=== PATIENT | female | born 1960 | race African-American/Black ===

== ENCOUNTER → 2016-11-28 | Outpatient (CLI) | payer MEDICARE, MEDICAID ==
--- NOTE | 2016-11-28 17:09 | WOMENS IMAGING REPORT ---
EXAM DESCRIPTION: BILAT SCREENING MAMMO W/CAD COMPLETED DATE/TIME: 11/28/2016 10:17 am REASON FOR STUDY: BILAT SCREENING MAMMO (Z12.31 Z12.31 ENCNTR SCREEN MAMMOGRAM FOR MALIGNANT NEOPLA SM OF SADI COMPARISON: 2013, 2014 TECHNIQUE: Standard craniocaudal and mediolateral oblique views of each breast recorded using digita l acquisition. LIMITATIONS: None. FINDINGS: Findings present which are benign by mammographic criteria. No suspicious masses, calcifi cations or architectural distortion. Read with the assistance of CAD. .[facility] - R2 Cenova Version 1.3 .[facility] - R2 Cenova Version 1.3 .[facility] - R2 Cenova Version 2.4 .[facility] [place] - R2 Cenova Version 2.4 .[facility] - R2 Cup Trimming Machine Operator Version 9.2 Benign mammographic findings may include one or more of the following: Smooth masses, popcorn/rim/co arse calcifications, asymmetries, post-procedure changes, and lesions with long-standing stability. BREAST DENSITY: c. The breasts are heterogeneously dense, which may obscure small masses. BIRAD: 2 BENIGN FINDING(S) RECOMMENDATION: ROUTINE SCREENING Please consider bilateral screening tomosynthesis in November 2017, given heterogeneously dense tissue COMMENT: PATIENT NOTIFIED BY LETTER. The [employer] recommends an annual screening mammogram for women aged 40 years or over. Each patient will receive a reminder prior to the anniversary date of her mammogram. The [employer] (A[employer]) has developed recommendations for screening MRI of the breast s in certain patient populations, to be used in conjunction with mammography. Breast MRI surveillanc e may be appropriate for women with more than 20% lifetime risk of developing breast cancer as deter mined by genetic testing, significant family history of the disease, or history of mantle radiation f or Hodgkins Disease. ACR Practice Guidelines 2008. TECHNICAL DOCUMENTATION: FINDING NUMBER: (1) ASSESSMENT: (1) JOB ID: [id number] [employer]- All Rights Reserved
== END ==
LOC: WI 10:00
PROVIDERS: ATTEND Family Medicine
DX: Z12.31 Encounter for screening mammogram for malignant neoplasm of breast (principal)
CPT/HCPCS: 77067; G0202

== ENCOUNTER 2016-12-14 20:01 | Emergency (ER) | payer MEDICARE, MEDICAID ==
[2016-12-14] MEDS ORDERED: QUETIAPINE FUMARATE 100 MG TABLET PO ONE (20:23)
[2016-12-14] MEDS ORDERED: DIPHENHYDRAMINE HCL 25 MG CAPSULE PO ONE (20:23)
--- NOTE | 2016-12-14 21:02 | ER Document Report ---
ED General - General Stated Complaint: ANXIETY Notes: This is a 56-year-old female well known to this emergency permit for frequent visits due to her anxiety issues. Patient states that she ran out of her Seroquel yesterday so did not have today's dose. She woke up this morning feeling very anxious and has been trying to take care of the symptoms at home with her when necessary Ativan. She states she's had 4 tablets of Ativan throughout the course of the day per the instructions on her bottle. She states she was still feeling extremely anxious. Her anxiety is manifested by biting things, crying and self-induced vomiting. TRAVEL OUTSIDE OF THE [place] IN LAST 30 DAYS: No - Related Data Allergies/Adverse Reactions: Soap [From Betadine] Allergy (Intermediate, Verified 08/02/16 08:29) RASH povidone-iodine [From Betadine] Allergy (Verified 08/02/16 08:29) RASH Past Medical History - Social History Smoking Status: Unknown if Ever Smoked Frequency of alcohol use: None Drug Abuse: None Family History: Reviewed & Not Pertinent - Past Medical History Cardiac Medical History: Reports: Hx Hypertension Denies: Hx Coronary Artery Disease, Hx Heart Attack Pulmonary Medical History: Denies: Hx Asthma, Hx Bronchitis, Hx COPD, Hx Pneumonia Neurological Medical History: Denies: Hx Cerebrovascular Accident, Hx Seizures Musculoskeltal Medical History: Denies Hx Arthritis Psychiatric Medical History: Reports: Hx Anxiety, Hx Bipolar Disorder, Hx Depression Past Surgical History: Reports: Hx Orthopedic Surgery - R arm, R ankle, Hx Tonsillectomy, Hx Tubal Ligation. Denies: Hx Hysterectomy - Immunizations Hx Diphtheria, Pertussis, Tetanus Vaccination: Yes Review of Systems - Review of Systems Constitutional: denies: Fever EENT: denies: Throat pain Cardiovascular: denies: Syncope, Dizziness Respiratory: denies: Short of breath Gastrointestinal: denies: Abdominal pain Genitourinary: denies: Burning Musculoskeletal: denies: Leg swelling Skin: denies: Rash Neurological/Psychological: denies: Numbness, Tingling Physical Exam - Vital signs Vitals: Pulse Resp BP Pulse Ox 98 22 H 145/110 H 98 12/14/16 20:14 12/14/16 20:14 12/14/16 20:14 12/14/16 20:14 - HEENT Head: Normocephalic, Atraumatic Pupils: PERRL Mucous membranes: Normal Pharynx: Normal Neck: Normal - Respiratory Respiratory status: No respiratory distress Breath sounds: Normal - Cardiovascular Rhythm: Regular - Abdominal Inspection: Normal Tenderness: Nontender - Back Back: Normal - Extremities General upper extremity: Normal inspection General lower extremity: Normal inspection - Neurological Neuro grossly intact: Yes Orientation: AAOx4 - Psychological Associated symptoms: Anxious - Skin Skin Temperature: Warm Skin Moisture: Dry Skin Color: Normal Course - Re-evaluation Re-evalutation: 12/14/16 21:19 The patient is now escalating, lying on the floor, crying and insisting that she will kill herself if we'll give her injections "knock her out". I reviewed her prior mental health notes which encourages to avoid injections with her. She has a long history of manipulating the ER providers to give her injections and various sedatives. She is threatening that she will go home and take all of her pills if I don't comply with her demands. She has had a medical screening exam. I do not feel that she has true intent to harm herself but rather she is exhibiting drug-seeking behavior manipulation. She will be discharged home. - Vital Signs Vital signs: Temp Pulse Resp BP Pulse Ox 98.0 F 81 20 139/90 H 98 12/14/16 21:50 12/14/16 21:50 12/14/16 21:50 12/14/16 21:50 12/14/16 21:50 Discharge - Discharge Clinical Impression: Anxiety Condition: Stable Disposition: HOME, SELF-CARE Instructions: Anxiety ([facility], [facility]) Additional Instructions: take your normal prescription medication as directed. Follow up at [facility] tomorrow if you need further assistance.
[2016-12-14 22:24] VITALS: BP 139/90
== END 2016-12-14 21:50 | disposition home or self-care (01) ==
LOC: ER 20:01
DX: F41.9 Anxiety disorder, unspecified (principal); F31.9 Bipolar disorder, unspecified; Z79.899 Other long term (current) drug therapy; Z91.14 Patient's other noncompliance with medication regimen; I10 Essential (primary) hypertension; Z88.3 Allergy status to other anti-infective agents; Z76.5 Malingerer [conscious simulation]
CPT/HCPCS: 99283

== ENCOUNTER 2016-12-15 06:43 | Emergency (ER) | payer MEDICARE, MEDICAID ==
--- NOTE | 2016-12-15 06:58 | ER Document Report ---
ED Psych Disorder / Suicide - General Mode of Arrival: Medic Information source: Patient, [facility] Records TRAVEL OUTSIDE OF THE [place] IN LAST 30 DAYS: No - HPI Patient complains to provider of: Other - Anxiety - General Chief Complaint: Anxiety Stated Complaint: ANXIETY Notes: Patient is a 56-year-old female presenting to the emergency department via EMS chief complaint anxiety. Patient was just seen here last night for the same complaint, and she was discharged and told to go to [facility] so that she could get a refill on her Seroquel. Patient was unable to give any information at this point in time because she was screaming and would not stop when we were in the room. Patient is able to turn this behavior on and off, and subsequently told the nurse exactly what was said during the examination, although she was screaming the entire time we were in the room. (DAVID QUINTANA) This 56-year-old female patient comes emergency room screaming requesting injection medications. She was here last night at 9 PM and eventually discharged to follow-up with [facility] today. Last night she did her usual routine of low lying on the floor and screaming. She threatened to go home and overdose on her medications if she did not get what she wanted here. She comes here frequently like this, escalates to the point of laying on the floor screaming and trying to make herself vomit. She will not stop screaming long enough for me to speak to her at all this morning. We have been asked by the psychiatry department in the past to not ever provide injections medication to her as this only feeds her problem. She frequently will come in by EMS bringing her home medications, but refusing to take them and demanding injections of the same medications. (CHESTER HAJI) - Related Data Allergies/Adverse Reactions: Soap [From Betadine] Allergy (Intermediate, Verified 08/02/16 08:29) RASH povidone-iodine [From Betadine] Allergy (Verified 08/02/16 08:29) RASH Past Medical History - General Information source: [facility] Records - Social History Smoking Status: Current Every Day Smoker Cigarette use (# per day): Yes Frequency of alcohol use: Occasional Family History: Reviewed & Not Pertinent - Past Medical History Cardiac Medical History: Reports: Hx Hypertension Denies: Hx Coronary Artery Disease, Hx Heart Attack Pulmonary Medical History: Denies: Hx Asthma, Hx Bronchitis, Hx COPD, Hx Pneumonia Neurological Medical History: Denies: Hx Cerebrovascular Accident, Hx Seizures Renal/ Medical History: Denies: Hx Peritoneal Dialysis Musculoskeltal Medical History: Denies Hx Arthritis Psychiatric Medical History: Reports: Hx Anxiety, Hx Bipolar Disorder, Hx Depression Past Surgical History: Reports: Hx Orthopedic Surgery - R arm, R ankle, Hx Tonsillectomy, Hx Tubal Ligation. Denies: Hx Hysterectomy - Immunizations Hx Diphtheria, Pertussis, Tetanus Vaccination: Yes Review of Systems - Review of Systems -: Yes ROS unobtainable due to patient's medical condition - Patient unable to provide information because she was screaming upset. Physical Exam - General General appearance: Alert - HEENT Head: Normocephalic, Atraumatic Eyes: Normal Pupils: PERRL - Respiratory Respiratory status: No respiratory distress - Cardiovascular Rhythm: Regular - Abdominal Inspection: Normal - Back Back: Normal - Extremities General upper extremity: Normal inspection General lower extremity: Normal inspection - Neurological Neuro grossly intact: Yes - Psychological Associated symptoms: Anxious, Labile - Skin Skin Color: Normal Course - Re-evaluation Re-evalutation: 12/15/16 07:33 The patient's blood pressure is 163/112 when it was checked manually after she laid still and stopped screaming for a while. It is unlikely she has taken her blood pressure medication recently. The most recent records we have shows she takes amlodipine 10 mg daily, she will be given a dose now. (CHESTER HAJI) - Vital Signs Vital signs: Temp Pulse Resp BP Pulse Ox 98.1 F 106 H 30 H 172/127 H 99 12/15/16 06:59 12/15/16 06:59 12/15/16 06:59 12/15/16 06:59 12/15/16 06:59 Discharge - Discharge Clinical Impression: Anxiety, History of medication noncompliance Hypertension Qualifiers: Hypertension type: essential hypertension Qualified Code(s): I10 - Essential ( primary) hypertension Condition: Stable Disposition: HOME, SELF-CARE Additional Instructions: TAKE YOUR REGULARLY PRESCRIBED MEDICATIONS. FOLLOW UP WITH [facility] TODAY IF YOU ARE RUNNING OUT OF MEDICATION, OR IF YOUR MEDICATIONS ARE NOT HELPING. RETURN TO THE EMERGENCY ROOM IF ANY NEW OR WORSENING SYMPTOMS. Referrals: [facility] [Outside] - 12/15/16 Scribe Attestation: 12/15/16 07:05 I personally performed the services described in the documentation, reviewed and edited the documentation which was dictated to the scribe in my presence, and it accurately records my words and actions. (CHESTER HAJI) Scribe Documentation - Scribe Written by Bhavya:: David Quintana 12/15/2016 0707 acting as scribe for :: Lucho
[2016-12-15] MEDS ORDERED: AMLODIPINE BESYLATE 10 MG TABLET PO ONE (07:33)
[2016-12-15 07:59] VITALS: BP 162/110
== END 2016-12-15 07:57 | disposition home or self-care (01) ==
LOC: ER 06:43
DX: F41.9 Anxiety disorder, unspecified (principal); I10 Essential (primary) hypertension; F17.210 Nicotine dependence, cigarettes, uncomplicated; Z91.14 Patient's other noncompliance with medication regimen
CPT/HCPCS: 99283; A9270

== ENCOUNTER 2016-12-15 13:26 | Emergency (ER) | payer MEDICARE, MEDICAID ==
--- NOTE | 2016-12-15 14:17 | ER Document Report ---
ED Psych Disorder / Suicide - General Mode of Arrival: Ambulatory - Came on IVC papers with [facility]. Information source: Patient, [facility] Records, Outside Facility Records TRAVEL OUTSIDE OF THE [place] IN LAST 30 DAYS: No - HPI Patient complains to provider of: Self injury Onset: Just prior to arrival Suicide Risk Factors: Bipolar <DAVID QUINTANA - Last Filed: 12/15/16 14:10> <CHESTER HAJI - Last Filed: 12/15/16 15:25> - General Chief Complaint: Nausea Stated Complaint: NAUSEA Notes: Patient is a 56-year-old female presenting to the emergency department for the second time today. This time patient comes in on IVC papers from [facility]. Per the IVC papers, [facility] states, " The respondent is currently expressing that she wants to . Respondent is attempting to cut her wrists with objects. Respondent was not tending to personal hygiene, sleeping, or eating. Respondent is wandering around and yelling incoherently. Respondent is requesting to be taken to the hospital." Nothing has changed from this description. Patient was acting like this when she was in the hospital this morning as well. Upon examination, patient was asleep on the mattress on the ground. (ADVID QUINTANA) - Related Data Allergies/Adverse Reactions: Soap [From Betadine] Allergy (Intermediate, Verified 08/02/16 08:29) RASH povidone-iodine [From Betadine] Allergy (Verified 08/02/16 08:29) RASH Past Medical History - General Information source: Patient, [facility] Records, Outside Facility Records - Social History Smoking Status: Current Every Day Smoker Frequency of alcohol use: Occasional Family History: Reviewed & Not Pertinent - Past Medical History Cardiac Medical History: Reports: Hx Hypertension Psychiatric Medical History: Reports: Hx Anxiety, Hx Bipolar Disorder, Hx Depression Past Surgical History: Reports: Hx Orthopedic Surgery - R arm, R ankle, Hx Tonsillectomy, Hx Tubal Ligation - Immunizations Hx Diphtheria, Pertussis, Tetanus Vaccination: Yes <DAVID QUINTANA - Last Filed: 12/15/16 14:10> - Social History Cigarette use (# per day): Yes Chew tobacco use (# tins/day): No Smoking Education Provided: No Occupation: unemployed <CHESTER HAJI - Last Filed: 12/15/16 15:25> Review of Systems - Review of Systems -: Yes ROS unobtainable due to patient's medical condition - Patient was sleeping on examination <MILES QUINTANAICA - Last Filed: 12/15/16 14:10> Physical Exam - General General appearance: Other - Patient was sleeping on the mattress on the floor. - HEENT Head: Normocephalic, Atraumatic - Respiratory Respiratory status: No respiratory distress - Cardiovascular Rhythm: Regular - Abdominal Inspection: Normal - Back Back: Normal - Extremities General upper extremity: Normal inspection General lower extremity: Normal inspection - Neurological Neuro grossly intact: Yes - Psychological Associated symptoms: Other - Patient asleep - Skin Skin Temperature: Warm Skin Moisture: Dry Skin Color: Normal <LILIANDAVID - Last Filed: 12/15/16 14:10> Course <LILIANDAVID - Last Filed: 12/15/16 14:10> <CHESTER HAJI - Last Filed: 12/15/16 15:25> - Re-evaluation Re-evalutation: 12/15/16 15:23 Despite what the petitioner put on the IVC paperwork, I do not believe the patient is trying to hurt herself. I have seen this patient many times for all the same complaints. The behavior they will be supported is what is always present when this patient comes to the emergency room. The IVC paperwork will be rescinded at the request of Dr. Trinidad. (CHESTER HAJI) - Vital Signs Vital signs: Temp Pulse Resp BP Pulse Ox 98.0 F 93 14 146/87 H 98 12/15/16 14:17 12/15/16 14:17 12/15/16 14:17 12/15/16 14:17 12/15/16 14:17 (CHESTER HAJI) Discharge <DAVID QUINTANA - Last Filed: 12/15/16 14:10> <CHESTER HAJI - Last Filed: 12/15/16 15:25> - Discharge Clinical Impression: Anxiety, Manipulative behavior, Bipolar 1 disorder, History of medication noncompliance Condition: Stable Disposition: HOME, SELF-CARE Additional Instructions: Take your regular medications as prescribed. Follow up with [facility] for any medications or may need. Do not tell them you are thinking about hurting herself when you go over to [facility] to get help. Scribe Attestation: 12/15/16 15:24 I personally performed the services described in the documentation, reviewed and edited the documentation which was dictated to the scribe in my presence, and it accurately records my words and actions. (CHESTER HAJI) Scribe Documentation - Scribe Written by Bhavya:: David Quintana 12/15/2016 1410 acting as scribe for :: Lucho <DAVID QUINTANA - Last Filed: 12/15/16 14:10>
[2016-12-15 16:29] VITALS: BP 143/92
== END 2016-12-15 16:20 | disposition home or self-care (01) ==
LOC: ER 13:26
DX: F31.9 Bipolar disorder, unspecified (principal); F41.9 Anxiety disorder, unspecified; I10 Essential (primary) hypertension; R11.0 Nausea; R45.851 Suicidal ideations; F17.200 Nicotine dependence, unspecified, uncomplicated; Z91.14 Patient's other noncompliance with medication regimen; Z98.51 Tubal ligation status
CPT/HCPCS: 99283

== ENCOUNTER 2017-01-04 20:27 | Emergency (ER) | payer MEDICARE, MEDICAID ==
--- NOTE | 2017-01-04 21:01 | ER Document Report ---
ED Medical Screen (RME) - General Stated Complaint: LEFT SHOULDER/ARM PAIN Notes: patient is a 57 year old female who had her porch roof collapse on her left arm and left leg able to ambulate, bear weight difficulty with ROM of the left shoulder I have greeted and performed a rapid initial assessment of this patient. A comprehensive ED assessment and evaluation of the patient, analysis of test results and completion of the medical decision making process will be conducted by additional ED providers. TRAVEL OUTSIDE OF THE [place] IN LAST 30 DAYS: No - Related Data Allergies/Adverse Reactions: Soap [From Betadine] Allergy (Intermediate, Verified 08/02/16 08:29) RASH povidone-iodine [From Betadine] Allergy (Verified 08/02/16 08:29) RASH Past Medical History - Past Medical History Cardiac Medical History: Reports: Hx Hypertension Psychiatric Medical History: Reports: Hx Anxiety, Hx Bipolar Disorder, Hx Depression Past Surgical History: Reports: Hx Orthopedic Surgery - R arm, R ankle, Hx Tonsillectomy, Hx Tubal Ligation - Immunizations Hx Diphtheria, Pertussis, Tetanus Vaccination: Yes
[2017-01-04] MEDS ORDERED: ACETAMINOPHEN 325 MG TABLET PO ONE (21:02)
--- NOTE | 2017-01-05 01:06 | ER Document Report ---
ED Extremity Problem, Upper - General Chief Complaint: Shoulder Injury Stated Complaint: LEFT SHOULDER/ARM PAIN Time seen by provider: 01:04 Mode of Arrival: Ambulatory Information source: Patient TRAVEL OUTSIDE OF THE [place] IN LAST 30 DAYS: No - HPI Patient complains to provider of: Injury, Pain, Left, Shoulder Onset: Just prior to arrival Recent injury: Yes Where: Home, Outdoors Quality of pain: Achy Severity of pain: Mild Pain Level: 1 Context: Blow Associated symptoms: None Exacerbated by: Movement Relieved by: Nothing Similar symptoms previously: No Recently seen / treated by doctor: No Notes: Patient is a 57-year-old female who presents to the emergency room complaining of injury to her left shoulder that occurred just prior to arrival, patient was with her friend standing on a porch one part of the porch collapsed and fell on her shoulder, she denies a head injury or loss of consciousness, denies injury or pain elsewhere - Related Data Allergies/Adverse Reactions: Soap [From Betadine] Allergy (Intermediate, Verified 01/05/17 03:14) RASH povidone-iodine [From Betadine] Allergy (Verified 01/05/17 03:14) RASH Past Medical History - General Information source: Patient - Social History Smoking Status: Current Every Day Smoker Chew tobacco use (# tins/day): No Frequency of alcohol use: None Drug Abuse: None Family History: Reviewed & Not Pertinent Patient has suicidal ideation: No Patient has homicidal ideation: No - Past Medical History Cardiac Medical History: Reports: Hx Hypertension Renal/ Medical History: Denies: Hx Peritoneal Dialysis Psychiatric Medical History: Reports: Hx Anxiety, Hx Bipolar Disorder, Hx Depression Past Surgical History: Reports: Hx Orthopedic Surgery - R arm, R ankle, Hx Tonsillectomy, Hx Tubal Ligation - Immunizations Hx Diphtheria, Pertussis, Tetanus Vaccination: Yes Review of Systems - Review of Systems Constitutional: No symptoms reported EENT: No symptoms reported Cardiovascular: No symptoms reported Respiratory: No symptoms reported Gastrointestinal: No symptoms reported Genitourinary: No symptoms reported Female Genitourinary: No symptoms reported Musculoskeletal: See HPI Skin: No symptoms reported Hematologic/Lymphatic: No symptoms reported Neurological/Psychological: No symptoms reported -: Yes All other systems reviewed and negative Physical Exam - Vital signs Vitals: Temp Pulse Resp BP Pulse Ox 97.3 F 82 16 154/100 H 100 01/04/17 21:02 02/16/17 21:02 01/04/17 21:02 01/04/17 21:02 01/04/17 21:02 Interpretation: Normal - General General appearance: Appears well, Alert - HEENT Head: Normocephalic, Atraumatic Eyes: Normal Pupils: PERRL - Respiratory Respiratory status: No respiratory distress Chest status: Nontender Breath sounds: Normal Chest palpation: Normal - Cardiovascular Rhythm: Regular Heart sounds: Normal auscultation Murmur: No - Abdominal Inspection: Normal Distension: No distension Bowel sounds: Normal Tenderness: Nontender Organomegaly: No organomegaly - Back Back: Normal, Nontender - Extremities General upper extremity: Normal inspection, Normal color, Normal ROM, Normal temperature General lower extremity: Normal inspection, Nontender, Normal color, Normal ROM , Normal temperature, Normal weight bearing. No: Alexandrea's sign Shoulder: Tender - Mild tenderness to palpate over the left before meals joint, distal sensation and motor is intact 2+ radial pulses and brisk capillary refill - Neurological Neuro grossly intact: Yes Cognition: Normal Orientation: AAOx4 Liz Coma Scale Eye Opening: Spontaneous Liz Coma Scale Verbal: Oriented Craig Coma Scale Motor: Obeys Commands Liz Coma Scale Total: 15 Speech: Normal Motor strength normal: LUE, RUE, LLE, RLE Sensory: Normal - Psychological Associated symptoms: Normal affect, Normal mood - Skin Skin Temperature: Warm Skin Moisture: Dry Skin Color: Normal Course - Re-evaluation Re-evalutation: 01/05/17 03:45 As I entered the room patient was actually sleeping, laying on her left shoulder , which is the shoulder that she reportedly injured, I see no evidence of any injury, there is mild tenderness to palpate anteriorly over the before meals joint, imaging shows no evidence of injury, he was provided with a sling as well as pain medication and information for follow-up, advised to return if symptoms worsen, patient acknowledges understanding and agreement with this plan - Vital Signs Vital signs: Temp Pulse Resp BP Pulse Ox 97.6 F 80 16 152/98 H 100 01/05/17 01:30 01/05/17 01:30 01/05/17 01:30 01/05/17 01:30 01/05/17 01:30 - Diagnostic Test Radiology reviewed: Image reviewed, Reports reviewed Procedures - Immobilization Left Shoulder Time completed: 03:46 Pre-Proc Neuro Vasc Exam: Normal Immobilizer type: Sling Performed by: [facility] Post-Proc Neuro Vasc Exam: Normal Alignment checked and good: Yes Discharge - Discharge Clinical Impression: Injury of left shoulder Qualifiers: Encounter type: initial encounter Qualified Code(s): S49.92XA - Unspecified injury of left shoulder and upper arm, initial encounter Condition: Stable Disposition: HOME, SELF-CARE Instructions: Oral Narcotic Medication ([facility]), Sling as Treatment ([facility]) Additional Instructions: Follow up with your primary care provider and an orthopedic surgeon in one to 2 days. Return to the emergency room immediately if symptoms worsen or any additional concerns. Ice and elevate the affected extremity. Prescriptions: Hydrocodone/Acetaminophen [Hydrocodon-Acetaminophen 5-325] 1 each PO Q6 #10 tablet Forms: Elevated Blood Pressure Referrals: RAJI DHILLON MD [ACTIVE STAFF] - Follow up as needed
[2017-01-05 03:19] VITALS: BP 152/98
== END 2017-01-05 01:32 | disposition home or self-care (01) ==
LOC: ER 20:27
DX: S49.92XA Unspecified injury of left shoulder and upper arm, initial encounter (principal); W20.8XXA Other cause of strike by thrown, projected or falling object, initial encounter; Y92.008 Other place in unspecified non-institutional (private) residence as the place of occurrence of the external cause; M25.512 Pain in left shoulder; I10 Essential (primary) hypertension; F17.200 Nicotine dependence, unspecified, uncomplicated; Z88.3 Allergy status to other anti-infective agents
CPT/HCPCS: 99283; 73030; A9270

== ENCOUNTER → 2017-02-06 | Outpatient (CLI) | payer MEDICARE, MEDICAID ==
[2017-02-06 10:09] LABS: HEMATOCRIT 39.5 % (36.0-47.0); HEMOGLOBIN 13.7 g/dL (12.0-15.5); HGB HCT DIFFERENCE 1.6; MEAN CORPUSCULAR HEMOGLOBIN 31.8 pg (27.0-33.4); MEAN CORPUSCULAR HGB CONC 34.7 g/dL (32.0-36.0); MEAN CORPUSCULAR VOLUME 92 fl (80-97); RED BLOOD COUNT 4.32 10^6/uL (3.72-5.28); RED CELL DISTRIBUTION WIDTH 14.6 % (11.5-14.0); WHITE BLOOD COUNT 5.8 10^3/uL (4.0-10.5)
[2017-02-06 10:29] LABS: ALANINE AMINOTRANSFERASE 51 U/L (9-52); ALBUMIN 4.3 g/dL (3.5-5.0); ALKALINE PHOSPHATASE 94 U/L (38-126); ANION GAP 11 (5-19); ASPARTATE AMINO TRANSFERASE 49 U/L (14-36); BILIRUBIN,DIRECT 0.2 mg/dL (0.0-0.4); BILIRUBIN,TOTAL 0.5 mg/dL (0.2-1.3); BLOOD UREA NITROGEN 14 mg/dL (7-20); CALCIUM 10.1 mg/dL (8.4-10.2); CARBON DIOXIDE 21 mmol/L (22-30); CHLORIDE 110 mmol/L (98-107); CHOLESTEROL 229.51 mg/dL (0-200); CREATININE RESULT 0.61 mg/dL (0.52-1.25); Direct HDL 107 mg/dL (>40); GLUCOSE 90 mg/dL (75-110); POTASSIUM 4.2 mmol/L (3.6-5.0); SODIUM 142.3 mmol/L (137-145); TOTAL PROTEIN 7.6 g/dL (6.3-8.2); TRIGLYCERIDES 99 mg/dL (<150)
[2017-02-06 10:40] LABS: DIRECT LDL 81 mg/dL (<100)
== END ==
LOC: RAD 09:07
PROVIDERS: ATTEND Nurse Practitioner Family
DX: M54.2 Cervicalgia (principal); I10 Essential (primary) hypertension
CPT/HCPCS: 36415; 72050; 80053; 80061; 85027

== ENCOUNTER 2017-02-18 04:40 | Emergency (ER) | payer MEDICARE, MEDICAID ==
[2017-02-18 05:06] VITALS: BP 144/98
== END 2017-02-18 07:51 | disposition left against medical advice (07) ==
LOC: ER 04:40
DX: Z53.9 Procedure and treatment not carried out, unspecified reason (principal); F41.9 Anxiety disorder, unspecified

== ENCOUNTER 2017-02-23 02:45 | Emergency (ER) | payer MEDICARE, MEDICAID ==
--- NOTE | 2017-02-23 03:49 | ER Document Report ---
ED General - General Chief Complaint: Psych Problem Stated Complaint: IVC/WITH PAPER Notes: Patient is a 57-year-old female who presents on IVC. Report by EMS with concerns of suicidal ideation. The patient is a very poor historian although very well known to the emergency department. I received report states the patient told her neighbor that she would find her and apparently had attempted to stab herself with a screwdriver. Patient denies these claims stating that she only told her neighbor that if her anxiety and panic attacks knocked him out of control she would likely windup in her house. At this time she denies acute suicidal or homicidal ideation but states that she does have severe anxiety and worries that this could trigger her to herself in the future. Denies any acute medical complaints. States she's been taking medications as directed. TRAVEL OUTSIDE OF THE [place] IN LAST 30 DAYS: No - Related Data Allergies/Adverse Reactions: Soap [From Betadine] Allergy (Intermediate, Verified 01/05/17 03:14) RASH povidone-iodine [From Betadine] Allergy (Verified 01/05/17 03:14) RASH Past Medical History - General Information source: Patient - Social History Smoking Status: Never Smoker Frequency of alcohol use: None Drug Abuse: None Lives with: Alone Family History: Reviewed & Not Pertinent - Past Medical History Cardiac Medical History: Reports: Hx Hypertension Renal/ Medical History: Denies: Hx Peritoneal Dialysis Psychiatric Medical History: Reports: Hx Anxiety, Hx Bipolar Disorder, Hx Depression Past Surgical History: Reports: Hx Orthopedic Surgery - R arm, R ankle, Hx Tonsillectomy, Hx Tubal Ligation - Immunizations Hx Diphtheria, Pertussis, Tetanus Vaccination: Yes Review of Systems - Review of Systems Notes: Constitutional: Negative for fever. HENT: Negative for sore throat. Eyes: Negative for visual changes. Cardiovascular: Negative for chest pain. Respiratory: Negative for shortness of breath. Gastrointestinal: Negative for abdominal pain, vomiting or diarrhea. Genitourinary: Negative for dysuria. Musculoskeletal: Negative for back pain. Skin: Negative for rash. Neurological: Negative for headaches, weakness or numbness. 10 point ROS negative except as marked above and in HPI. Physical Exam - Vital signs Interpretation: Normal Notes: PHYSICAL EXAMINATION: GENERAL: Well-appearing, well-nourished and in no acute distress. HEAD: Atraumatic, normocephalic. EYES: Pupils equal round and reactive to light, extraocular movements intact, sclera anicteric, conjunctiva are normal. ENT: nares patent, oropharynx clear without exudates. Moist mucous membranes. NECK: Normal range of motion, supple without lymphadenopathy LUNGS: Breath sounds clear to auscultation bilaterally and equal. No wheezes rales or rhonchi. HEART: Regular rate and rhythm without murmurs ABDOMEN: Soft, nontender, normoactive bowel sounds. No guarding, no rebound. No masses appreciated. EXTREMITIES: Normal range of motion, no pitting or edema. No cyanosis. NEUROLOGICAL: No focal neurological deficits. Moves all extremities spontaneously and on command. PSYCH: Somewhat disheveled. No acute distress SKIN: Warm, Dry, normal turgor, no rashes or lesions noted. Course - Re-evaluation Re-evalutation: 02/23/17 03:48 Patient presents an IVC before. Description of the paperwork is somewhat concerning although patient denies complaints as following IVC paperwork. At this point given the clarity of information provided on the paperwork, will hold patient at this time and perform medical screening laboratories. She denies any acute medical complaints at this time. She is medically cleared for evaluation by psychiatry in the morning. - Laboratory Result Diagrams: 02/23/17 03:38 02/23/17 03:38 Discharge - Discharge Clinical Impression: Anxiety, Suicidal ideation Condition: Fair Disposition: PSYCH HOSP/UNIT
[2017-02-23 04:04] LABS: ABSOLUTE LYMPHOCYTES (AUTO) 2.2 10^3/uL (0.5-4.7); ABSOLUTE MONOCYTES (AUTO) 0.4 10^3/uL (0.1-1.4); ABSOLUTE NEUT (AUTO) 5.7 10^3/uL (1.7-8.2); BASOPHILS % (AUTO) 0.6 % (0-2); EOSINOPHILS % (AUTO) 0.3 % (0-6); HEMATOCRIT 38.1 % (36.0-47.0); HEMOGLOBIN 13.1 g/dL (12.0-15.5); HGB HCT DIFFERENCE 1.2; MEAN CORPUSCULAR HEMOGLOBIN 31.8 pg (27.0-33.4); MEAN CORPUSCULAR HGB CONC 34.5 g/dL (32.0-36.0); MEAN CORPUSCULAR VOLUME 92 fl (80-97); MONOCYTES % (AUTO) 5.2 % (3-13); RED BLOOD COUNT 4.12 10^6/uL (3.72-5.28); RED CELL DISTRIBUTION WIDTH 14.2 % (11.5-14.0); SEGMENTED NEUTROPHILS % (AUTO) 67.9 % (42-78); WHITE BLOOD COUNT 8.4 10^3/uL (4.0-10.5)
[2017-02-23 04:14] LABS: ALANINE AMINOTRANSFERASE 44 U/L (9-52); ALBUMIN 4.2 g/dL (3.5-5.0); ALCOHOL < 10 mg/dL (NONE DETECTED); ALKALINE PHOSPHATASE 96 U/L (38-126); ANION GAP 14 (5-19); ASPARTATE AMINO TRANSFERASE 33 U/L (14-36); BILIRUBIN,DIRECT 0.3 mg/dL (0.0-0.4); BILIRUBIN,TOTAL 0.5 mg/dL (0.2-1.3); BLOOD UREA NITROGEN 10 mg/dL (7-20); CALCIUM 9.8 mg/dL (8.4-10.2); CARBON DIOXIDE 24 mmol/L (22-30); CHLORIDE 107 mmol/L (98-107); CREATININE RESULT 0.53 mg/dL (0.52-1.25); GLUCOSE 114 mg/dL (75-110); POTASSIUM 3.3 mmol/L (3.6-5.0); SODIUM 145.1 mmol/L (137-145); TOTAL PROTEIN 7.4 g/dL (6.3-8.2)
[2017-02-23 06:41] LABS: APPEARANCE,URINE CLOUDY; BILIRUBIN,URINE NEGATIVE (NEGATIVE); GLUCOSE, URINE NEGATIVE (NEGATIVE); KETONES,URINE NEGATIVE (NEGATIVE); LEUKOCYTE ESTERASE,URINE LARGE (NEGATIVE); NITRITE,URINE NEGATIVE (NEGATIVE); PROTEIN,URINE NEGATIVE (NEGATIVE); UROBILINOGEN,URINE NEGATIVE mg/dL (<2.0)
[2017-02-23 06:55] LABS: URINE BARBITURATES SCREEN NEGATIVE; URINE METHADONE SCREEN NEGATIVE; URINE OPIATES LOW NEGATIVE; URINE PHENCYCLIDINE SCREEN NEGATIVE
--- NOTE | 2017-02-23 08:55 | ER Document Report ---
Doctor's Note Notes: 02/23/17 08:54 Patient was seen and evaluated no acute distress patient able ambulate from the main ER due to psychiatric ER. Patient was seen by mental health team recommends discharge home. I agree with this assessment and plan this time. Vital signs lab work reviewed. Patient stable to have her IVC paper rescinded follow-up with outpatient provider
--- NOTE | 2017-02-23 09:06 | PSYCHOLOGICAL NOTE ---
Psych Note - Psych Note Psych Note: Patient presented to [facility] ED on IVC. Report by EMS with concerns of suicidal ideation. The patient is a very poor historian although very well known to the emergency department. I received report states the patient told her neighbor that she would find her and apparently had attempted to stab herself with a screwdriver. Patient denies these claims stating that she only told her neighbor that if her anxiety and panic attacks knocked him out of control she would likely windup in her house. At this time she denies acute suicidal or homicidal ideation but states that she does have severe anxiety and worries that this could trigger her to herself in the future. Patient states her neighbor made a false report because she "has my keys and wants to get in my house and take my Ativan." She continued to state that the neighbor says the patient told her she wanted to kill herself, but she states that she only said "my anxiety is so bad one day I will be found ." The patient states this was not meant as killing herself, rather she stated that her anxiety is so high her body suffers. She then requested a prescription for Ativan when it was explained that the ED was unable to, the patient stated that it was "ok, I will just get my regular doctor to get me one." She continued to disclose that she has an appointment today with her primary because of female issues and then needs to go to get blood work done. Patient is alert and orientated to person, place, time and circumstance. Mood is euthymic with congruent affect. Patient denies suicidal and homicidal ideation, stating her neighbor miss understood her comment. Patient denies auditory and visual hallucinations; no delusions are noted. Thought process is organized and linear. Conversational speech is loud. Eye contact was well maintained. Attention and concentration is good. Insight, judgment, and impulse control are fair. 296.80 (F31.9) Unspecified Bipolar Disorder by history 300.00 (F41.9) Unspecified Anxiety Disorder by history 304.10 (F13.20) Sedative Use disorder; Ativan by history Recommendations: Patient is recommended for rescind of IVC and is considered psychiatrically cleared for discharge. Patient denies suicidal and homicidal ideation; stating that she suffers only from anxiety. Patient is admit that her neighbor miss understood a comment she made in regards to how severe her anxiety is. Patient is recommended to follow up with outpatient mental health provider. Dr. Trinidad was consulted on the care and management of this patient. Attending physician is in a agreement with recommendations and disposition.
[2017-02-23 09:07] VITALS: BP 142/96
--- NOTE | 2017-02-23 22:30 | EKG REPORT ---
SEVERITY:- BORDERLINE ECG - SINUS RHYTHM PROBABLE LEFT ATRIAL ABNORMALITY : Confirmed by: Leticia Underwood MD 23-Feb-2017 22:30:15
== END 2017-02-23 09:15 | disposition home or self-care (01) ==
LOC: ER 02:45
DX: R45.851 Suicidal ideations (principal); F41.0 Panic disorder [episodic paroxysmal anxiety]; F41.9 Anxiety disorder, unspecified; Z76.5 Malingerer [conscious simulation]; F13.20 Sedative, hypnotic or anxiolytic dependence, uncomplicated; F31.9 Bipolar disorder, unspecified; I10 Essential (primary) hypertension; Z98.51 Tubal ligation status
CPT/HCPCS: 36415; 80053; 80307; 81001; 85025; 93005; 93010; 99285

== ENCOUNTER 2017-03-26 17:45 | Emergency (ER) | payer MEDICARE, MEDICAID ==
[2017-03-26 18:01] VITALS: BP 146/109
--- NOTE | 2017-03-26 18:16 | ER Document Report ---
ED General - General Chief Complaint: Anxiety Stated Complaint: POSSIBLE PANIC ATTACK Time Seen by Provider: 03/26/17 18:14 Cannot obtain history due to: Uncooperative Notes: Patient is a 57-year-old woman well-known to this emergency department who presents complaining of an anxiety attack. States the symptoms were ongoing for the past 3 days she's been taking oral medications but they are not helping. Nothing was triggering today's episode. History is extremely limited as patient is thrashing, kicking, biting a blanket but does stop easily to scream at me when I tried to discuss management options. History is secondarily limited due to the her behaviors. Her neighbor states that she's been with the patient for the past several days even though she is giving her the medication patient continues to act in this manner. Patient denies any acute suicidality or homicidality TRAVEL OUTSIDE OF THE [place] IN LAST 30 DAYS: No - Related Data Allergies/Adverse Reactions: Soap [From Betadine] Allergy (Intermediate, Verified 03/26/17 18:01) RASH povidone-iodine [From Betadine] Allergy (Verified 03/26/17 18:01) RASH Past Medical History - General Information source: Patient, Friend - Social History Smoking Status: Never Smoker Frequency of alcohol use: None Drug Abuse: None Lives with: Friend Family History: Reviewed & Not Pertinent Patient has suicidal ideation: No Patient has homicidal ideation: No - Past Medical History Cardiac Medical History: Reports: Hx Hypertension Renal/ Medical History: Denies: Hx Peritoneal Dialysis Psychiatric Medical History: Reports: Hx Anxiety, Hx Bipolar Disorder, Hx Depression Past Surgical History: Reports: Hx Orthopedic Surgery - R arm, R ankle, Hx Tonsillectomy, Hx Tubal Ligation - Immunizations Hx Diphtheria, Pertussis, Tetanus Vaccination: Yes Review of Systems - Review of Systems -: Yes ROS unobtainable due to patient's medical condition Physical Exam - Vital signs Vitals: Temp Pulse Resp BP Pulse Ox 98.7 F 130 H 24 H 146/109 H 98 03/26/17 17:55 03/26/17 17:55 03/26/17 17:55 03/26/17 17:55 03/26/17 17:55 Notes: PHYSICAL EXAMINATION: GENERAL: Laying on the ground on a mattress, rocking back and forth biting a towel. She is screaming at me but easily stops to have a clear conversation. HEAD: Atraumatic, normocephalic. EYES: sclera anicteric, conjunctiva are normal. ENT: Moist mucous membranes. NECK: Normal range of motion LUNGS: Normal work of breathing HEART: 2+ radial pulses bilaterally EXTREMITIES: no pitting or edema. No cyanosis. NEUROLOGICAL: No focal neurological deficits. Moves all extremities spontaneously a PSYCH: Agitated, screaming, kicking the floor SKIN: Warm, Dry, normal turgor, no rashes or lesions noted. Course - Re-evaluation Re-evalutation: 03/26/17 18:17 Patient presents for the seventh time in 2017 for complaints of anxiety attack. She frequently throws herself about in the room and lays on a mattress on the floor. This is behavioral she clearly can shut this on and off and I've seen this patient a multitude of times for the same presentation. She will not be given IM medications as this is part of the reason she comes to the emergency department as she wants these medications. No acute safety concern. Patient is demanding IM injection medications and has a frequent history of going to multiple emergency departments demanding these medications. I briefly discussed her psychiatric provider who concurs that on all prior assessments this is the same behavior as prior. Patient is threatening "I will juventino this whole [facility] and make sure you get fired. They kill you here!" I offered the patient her home oral medications which she declined. Medical screening exam is unremarkable. She will be discharged. - Vital Signs Vital signs: Temp Pulse Resp BP Pulse Ox 98.7 F 130 H 24 H 146/109 H 98 03/26/17 17:55 03/26/17 17:55 03/26/17 17:55 03/26/17 17:55 03/26/17 17:55 Discharge - Discharge Clinical Impression: Drug-seeking behavior, Panic attack Condition: Good Disposition: HOME, SELF-CARE Instructions: Anxiety ([facility]) Additional Instructions: Please return if you develop thoughts of wanting to harm yourself, hurt others, take excessive medications, began hearing voices or seeing things, or have any other symptoms that are concerning to you.
== END 2017-03-26 18:28 | disposition home or self-care (01) ==
LOC: ER 17:45
DX: F41.9 Anxiety disorder, unspecified (principal); Z76.5 Malingerer [conscious simulation]; I10 Essential (primary) hypertension; Z79.899 Other long term (current) drug therapy; Z88.3 Allergy status to other anti-infective agents
CPT/HCPCS: 99283

== ENCOUNTER 2017-03-29 09:23 | Emergency (ER) | payer MEDICARE, OTHER, MEDICAID ==
[2017-03-29 09:34] VITALS: BP 141/107
--- NOTE | 2017-03-29 09:55 | ER Document Report ---
ED Medical Screen (RME) - General Mode of Arrival: Ambulatory Information source: Patient TRAVEL OUTSIDE OF THE [place] IN LAST 30 DAYS: No <LORRAINE CHACON - Last Filed: 03/29/17 12:11> <PAT GRIFFIN - Last Filed: 03/29/17 21:18> - General Chief Complaint: Anxiety Stated Complaint: AXIETY Time Seen by Provider: 03/29/17 09:45 Notes: Patient has a hx of anxiety, depression, panic attacks, bipolar disorder, and HTN, presents to emergency department for a panic attack onset yesterday. Patient states she was at [facility] for a panic attack, was released yesterday and found out that her friend which triggered another panic attack. Patient states she took Adavan and Seroquil last night with no relief. Patient also complains of vomiting. Patient states she went to [facility] yesterday but that they did not help and requests injections here. Patient denies homicidal and suicidal ideations. Patient reports she has trichomonas but only took one of her pills for treatment. (LORRAINE CHACON) - Related Data Allergies/Adverse Reactions: Soap [From Betadine] Allergy (Intermediate, Verified 03/29/17 09:45) RASH povidone-iodine [From Betadine] Allergy (Verified 03/29/17 09:45) RASH Past Medical History - General Information source: Patient - Social History Cigarette use (# per day): No Family history: Reviewed & Not Pertinent - Past Medical History Cardiac Medical History: Reports: Hx Hypertension Psychiatric Medical History: Reports: Hx Anxiety, Hx Bipolar Disorder, Hx Depression Past Surgical History: Reports: Hx Orthopedic Surgery - R arm, R ankle, Hx Tonsillectomy, Hx Tubal Ligation - Immunizations Hx Diphtheria, Pertussis, Tetanus Vaccination: Yes <LORRAINE CHACON - Last Filed: 03/29/17 12:11> Review of Systems - Review of Systems Constitutional: No symptoms reported EENT: No symptoms reported Cardiovascular: No symptoms reported Respiratory: No symptoms reported Gastrointestinal: No symptoms reported Genitourinary: No symptoms reported Female Genitourinary: No symptoms reported Musculoskeletal: No symptoms reported Skin: No symptoms reported Hematologic/Lymphatic: No symptoms reported Neurological/Psychological: See HPI, Anxiety -: Yes All other systems reviewed and negative <LORRAINE CHACON - Last Filed: 03/29/17 12:11> Physical Exam - Vital signs Interpretation: Normal - Respiratory Respiratory status: No respiratory distress - Respirations at 14, even and controlled Chest status: Nontender Breath sounds: Normal Chest palpation: Normal - Cardiovascular Rhythm: Regular Heart sounds: Normal auscultation - Psychological Associated symptoms: Tearful, Other - Able to speak rationally <LORRAINE CHACON - Last Filed: 03/29/17 12:11> - General General appearance: Appears well, Alert - HEENT Head: Atraumatic Pupils: PERRL - Cardiovascular Normal capillary refill: Yes - Abdominal Inspection: Normal Distension: No distension - Skin Skin Temperature: Warm Skin Moisture: Dry <PAT GRIFFIN - Last Filed: 03/29/17 21:18> - Vital signs Vitals: Temp Pulse Resp BP Pulse Ox 98.3 F 106 H 30 H 141/107 H 96 03/29/17 09:33 03/29/17 09:33 03/29/17 09:33 03/29/17 09:33 03/29/17 09:33 Course <LORRAINE CHACON - Last Filed: 03/29/17 12:11> <PAT GRIFFIN - Last Filed: 03/29/17 21:18> - Re-evaluation Re-evalutation: 03/29/17 09:56 Reviewed patient's past medical records, discussed with her that we have him recommended did not give her any injections nor should we give her any benzodiazepines. Patient agrees that she does need to consider some talk therapy, was able to call her educator from [place] who brought her here at [facility] going to take her home. Patient is going to go through grief counseling with private rather than trying to medicate her way through this. Patient to try Ativan last night and it did not help. There is no indication for for further Ativan today as it did not help last night. Patient requests injection of Benadryl, Haldol and Ativan, when I told her that simply making her sleep through the grief would not help her to she'll she agreed to skip the injections today. Patient will go home with her educator from [place] and seek further outpatient services. Patient is not suicidal or homicidal. She has no emergent condition at this time. Patient will be discharged home. (PAT GRIFFIN ) - Vital Signs Vital signs: Temp Pulse Resp BP Pulse Ox 98.3 F 106 H 30 H 141/107 H 96 03/29/17 09:33 03/29/17 09:33 03/29/17 09:33 03/29/17 09:33 03/29/17 09:33 Doctor's Discharge <LORRAINE CHACON - Last Filed: 03/29/17 12:11> <PAT GRIFFIN - Last Filed: 03/29/17 21:18> - Discharge Clinical Impression: Anxiety, Feeling grief Condition: Stable Disposition: HOME, SELF-CARE Instructions: Anxiety (OM) Additional Instructions: Based on a thorough review of your past history or psychologist has recommended that we not use any injectable medications nor give you additional Ativan as the Ativan did not help you last night. You're having an appropriate reaction to the loss of a loved one. It is important that you go through all the stages of grief and that you allow yourself to cry. Please continue to talk through your grief with your counselors from [facility] and with friends and family. Laceyibe Documentation - Scribe Written by Angela:: angela Damian, 03/29/17, 1216 acting as scribe for :: Elvira <LORRAINE CHACON - Last Filed: 03/29/17 12:11>
== END 2017-03-29 10:00 | disposition home or self-care (01) ==
LOC: ER 09:23
DX: F41.9 Anxiety disorder, unspecified (principal); I10 Essential (primary) hypertension; F43.21 Adjustment disorder with depressed mood; Z98.51 Tubal ligation status
CPT/HCPCS: 99283

== ENCOUNTER 2017-04-01 00:24 | Emergency (ER) | payer MEDICARE, OTHER, MEDICAID ==
[2017-04-01 00:36] VITALS: BP 168/102
--- NOTE | 2017-04-01 00:50 | ER Document Report ---
ED General - General Chief Complaint: Anxiety Stated Complaint: ANXIETY Time Seen by Provider: 04/01/17 00:40 Notes: Patient is a 57-year-old female presents with complaint of a panic attack. She also complains of chest pain but continues to refuse EKG from the staff and the paramedics. She says her chest pain is related to her anxiety. She is well- known to ER and comes here frequently. She's been seen by psych several times. They have determined that we should not give her any injections of any sedating medications such as Haldol or Ativan and Benadryl here. Patient is aware of this. Patient since she has arrived has said that she wants to go to [facility]. She says that she wants be discharged to go to [facility]. I informed the patient and her neighbor that I cannot refer her to [facility] as she has a condition that we are able to treat here through psychiatry in the morning. Patient and her neighbor say that they request that she be discharged and that they would go to another facility instead. Patient will be discharged as she requests. I again informed her that I'm not referring her to another ER as this would be an EMTALA violation. She is being discharged as she requested. I did inform her that we could have a psychiatrist to see her here in the morning but she again refuses to stay because we will not give her sedating medications. TRAVEL OUTSIDE OF THE [place] IN LAST 30 DAYS: No - Related Data Allergies/Adverse Reactions: Soap [From Betadine] Allergy (Intermediate, Verified 03/29/17 09:45) RASH povidone-iodine [From Betadine] Allergy (Verified 03/29/17 09:45) RASH Past Medical History - Social History Smoking Status: Unknown if Ever Smoked Frequency of alcohol use: None Drug Abuse: None Family History: Reviewed & Not Pertinent - Past Medical History Cardiac Medical History: Reports: Hx Hypertension Renal/ Medical History: Denies: Hx Peritoneal Dialysis Psychiatric Medical History: Reports: Hx Anxiety, Hx Bipolar Disorder, Hx Depression Past Surgical History: Reports: Hx Orthopedic Surgery - R arm, R ankle, Hx Tonsillectomy, Hx Tubal Ligation - Immunizations Hx Diphtheria, Pertussis, Tetanus Vaccination: Yes Review of Systems - Review of Systems Notes: My Normal Review Basic REVIEW OF SYSTEMS: CONSTITUTIONAL : Denies fever, chills, or sweats. Denies recent illness. CARDIOVASCULAR: Complains of chest pain but refused EKG. RESPIRATORY: Denies cough, cold, or chest congestion. Denies shortness of breath, difficulty breathing, or wheezing. GASTROINTESTINAL: Denies abdominal pain. Some nausea and vomiting. Denies constipation. MUSCULOSKELETAL: Denies neck or back pain or joint pain or swelling. SKIN: Denies rash or skin lesions. NEUROLOGICAL: Denies altered mental status or loss of consciousness. Denies headache. Denies weakness or paralysis or loss of use of either side. Denies problems with gait or speech. Denies sensory or motor loss. PSYCHIATRIC: Anxiety and panic attacks. ALL OTHER SYSTEMS REVIEWED AND NEGATIVE. Physical Exam - Vital signs Vitals: Temp Pulse Resp BP Pulse Ox 97.6 F 103 H 20 168/102 H 96 04/01/17 00:33 04/01/17 00:04/01/17 00:04/01/17 00:04/01/17 00:33 - Notes Notes: General Appearance: Well nourished, alert, patient is actively moaning and moving around the bed. Vitals: reviewed, See vital signs table. Head: no swelling or tenderness to the head Eyes: PERRL, EOMI, Conjuctiva clear Mouth: No decreasd moisture Lungs: No wheezing, No rales, No rhonci, No accessory muscle use, good air exchange bilaterally. Heart: Normal rate, Regular rythm, No murmur, no rub Abdomen: Normal BS, soft, No rigidity, No abdominal tenderness, No guarding, no rebound, no abdominal masses, no organomegaly Skin: warm, dry, appropriate color, no rash Neuro: speech clear, oriented x 3, anxious affect. Course - Vital Signs Vital signs: Temp Pulse Resp BP Pulse Ox 97.6 F 103 H 20 168/102 H 96 04/01/17 00:33 04/01/17 00:04/01/17 00:04/01/17 00:04/01/17 00:33 Discharge - Discharge Clinical Impression: Panic attack Condition: Stable Disposition: HOME, SELF-CARE Instructions: Anxiety ([facility]) Additional Instructions: We understand that you do not want to stay here for continued treatment and want to leave. You have the right to make that choice. Please follow up with your psychiatrist. Please return to the ER immediately if you have any further concerns.
== END 2017-04-01 01:00 | disposition home or self-care (01) ==
LOC: ER 00:24
DX: F41.0 Panic disorder [episodic paroxysmal anxiety] (principal); F41.9 Anxiety disorder, unspecified; R07.9 Chest pain, unspecified; I10 Essential (primary) hypertension; Z53.29 Procedure and treatment not carried out because of patient's decision for other reasons; Z88.3 Allergy status to other anti-infective agents
CPT/HCPCS: 99283

== ENCOUNTER 2017-06-06 21:25 | Emergency (ER) | payer MEDICARE, OTHER, MEDICAID ==
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
== END 2017-06-06 22:10 | disposition home or self-care (01) ==
LOC: ER 21:25
DX: F41.9 Anxiety disorder, unspecified (principal); F41.0 Panic disorder [episodic paroxysmal anxiety]; Z79.899 Other long term (current) drug therapy
CPT/HCPCS: 99283

== ENCOUNTER 2017-07-07 19:19 | Emergency (ER) | payer MEDICARE, OTHER, MEDICAID ==
[2017-07-07] MEDS ORDERED: ONDANSETRON 4 MG TAB.RAPDIS PO ONE (19:30)
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
== END 2017-07-07 19:51 | disposition home or self-care (01) ==
LOC: ER 19:19
DX: F41.9 Anxiety disorder, unspecified (principal)
CPT/HCPCS: 99283; A9270; S0119

== ENCOUNTER 2017-07-08 01:12 | Emergency (ER) | payer MEDICARE, MEDICAID ==
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
[2017-07-08 02:42] LABS: ABSOLUTE LYMPHOCYTES (AUTO) 0.9 10^3/uL (0.5-4.7); ABSOLUTE MONOCYTES (AUTO) 0.2 10^3/uL (0.1-1.4); ABSOLUTE NEUT (AUTO) 5.8 10^3/uL (1.7-8.2); BASOPHILS % (AUTO) 0.5 % (0-2); EOSINOPHILS % (AUTO) 0.6 % (0-6); HEMATOCRIT 46.5 % (36.0-47.0); HEMOGLOBIN 15.9 g/dL (12.0-15.5); HGB HCT DIFFERENCE 1.2; LYMPHOCYTES % (AUTO) 13.2 % (13-45); MEAN CORPUSCULAR HEMOGLOBIN 31.9 pg (27.0-33.4); MEAN CORPUSCULAR HGB CONC 34.2 g/dL (32.0-36.0); MEAN CORPUSCULAR VOLUME 93 fl (80-97); MONOCYTES % (AUTO) 2.3 % (3-13); RED CELL DISTRIBUTION WIDTH 13.6 % (11.5-14.0); SEGMENTED NEUTROPHILS % (AUTO) 83.4 % (42-78)
[2017-07-08 03:07] LABS: ALANINE AMINOTRANSFERASE 33 U/L (9-52); ALBUMIN 5.3 g/dL (3.5-5.0); ALKALINE PHOSPHATASE 124 U/L (38-126); ANION GAP 16 (5-19); ASPARTATE AMINO TRANSFERASE 41 U/L (14-36); BILIRUBIN,DIRECT 0.6 mg/dL (0.0-0.4); BILIRUBIN,TOTAL 0.7 mg/dL (0.2-1.3); BLOOD UREA NITROGEN 12 mg/dL (7-20); CARBON DIOXIDE 22 mmol/L (22-30); CHLORIDE 105 mmol/L (98-107); CREATININE RESULT 0.54 mg/dL (0.52-1.25); GLUCOSE 136 mg/dL (75-110); POTASSIUM 4.1 mmol/L (3.6-5.0); SODIUM 143.4 mmol/L (137-145); TOTAL PROTEIN 9.5 g/dL (6.3-8.2)
[2017-07-08 03:09] LABS: ALCOHOL < 10 mg/dL (NONE DETECTED)
[2017-07-08 06:32] LABS: APPEARANCE,URINE CLEAR; BILIRUBIN,URINE NEGATIVE (NEGATIVE); GLUCOSE, URINE 50 mg/dL (NEGATIVE); KETONES,URINE 20 mg/dL (NEGATIVE); LEUKOCYTE ESTERASE,URINE NEGATIVE (NEGATIVE); NITRITE,URINE NEGATIVE (NEGATIVE); PROTEIN,URINE 30 mg/dL (NEGATIVE); URINE SPECIFIC GRAVITY 1.017; UROBILINOGEN,URINE NEGATIVE mg/dL (<2.0)
[2017-07-08 06:39] LABS: URINE BARBITURATES SCREEN NEGATIVE; URINE METHADONE SCREEN NEGATIVE; URINE OPIATES LOW NEGATIVE; URINE PHENCYCLIDINE SCREEN NEGATIVE
--- NOTE | 2017-07-08 07:55 | EKG REPORT ---
SEVERITY:- ABNORMAL ECG - SINUS TACHYCARDIA BIATRIAL ABNORMALITIES PROBABLE LEFT VENTRICULAR HYPERTROPHY : Confirmed by: Johnson Cullen MD 08-Jul-2017 07:55:26
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
[2017-07-08 09:03] VITALS: BP 137/111
== END 2017-07-08 09:03 | disposition home or self-care (01) ==
LOC: ER 01:12
DX: F41.9 Anxiety disorder, unspecified (principal); F31.9 Bipolar disorder, unspecified; F13.90 Sedative, hypnotic, or anxiolytic use, unspecified, uncomplicated; F17.210 Nicotine dependence, cigarettes, uncomplicated; R00.0 Tachycardia, unspecified; I10 Essential (primary) hypertension; Z88.3 Allergy status to other anti-infective agents
CPT/HCPCS: 36415; 80053; 80307; 81001; 85025; 93005; 93010; 99284

== ENCOUNTER 2017-07-11 18:50 | Emergency (ER) | payer MEDICARE, MEDICAID ==
--- NOTE | 2017-07-11 19:49 | ER Document Report ---
ED Medical Screen (RME) - General Chief Complaint: Psych Problem Stated Complaint: SUICIDAL IDEATION Time Seen by Provider: 07/11/17 19:47 Notes: Patient states that her first cousin, who was her best friend, recently and this has caused her to have a panic attack for 5 straight days. She states that she cannot deal with the anxiety anymore and wants to kill herself. She states she has been thinking of overdosing on pills. TRAVEL OUTSIDE OF THE [place] IN LAST 30 DAYS: No - Related Data Allergies/Adverse Reactions: Soap [From Betadine] Allergy (Intermediate, Verified 07/11/17 19:08) RASH povidone-iodine [From Betadine] Allergy (Verified 07/11/17 19:08) RASH Past Medical History - Social History Family history: Reviewed & Not Pertinent - Past Medical History Cardiac Medical History: Reports: Hx Hypertension Renal/ Medical History: Denies: Hx Peritoneal Dialysis Psychiatric Medical History: Reports: Hx Anxiety, Hx Bipolar Disorder, Hx Depression Past Surgical History: Reports: Hx Orthopedic Surgery - R arm, R ankle, Hx Tonsillectomy, Hx Tubal Ligation - Immunizations Hx Diphtheria, Pertussis, Tetanus Vaccination: Yes Physical Exam - Vital signs Vitals: Temp Pulse Resp BP Pulse Ox 98.7 F 126 H 24 H 116/76 98 07/11/17 19:17 07/11/17 19:17 07/11/17 19:17 07/11/17 19:17 07/11/17 19:17 Course - Vital Signs Vital signs: Temp Pulse Resp BP Pulse Ox 98.7 F 126 H 24 H 116/76 98 07/11/17 19:17 07/11/17 19:17 07/11/17 19:17 07/11/17 19:17 07/11/17 19:17
[2017-07-11] MEDS ORDERED: LORAZEPAM 1 MG TABLET PO ONE (20:05)
--- NOTE | 2017-07-12 02:04 | ER Document Report ---
ED Psych Disorder / Suicide - General Chief Complaint: Psych Problem Stated Complaint: SUICIDAL IDEATION Time Seen by Provider: 07/11/17 19:47 Mode of Arrival: Ambulatory Information source: Patient TRAVEL OUTSIDE OF THE U.S. IN LAST 30 DAYS: No - HPI Patient complains to provider of: Bizarre behavior Onset was: Cannot confirm Quality of pain: No pain Associated symptoms: Anxious Similar symptoms previously: Yes Notes: Patient is a 57-year-old female who is well known to this emergency room for multiple previous visits related to anxiety and panic attacks, presenting today complaining of a panic attack for the past 5 days stating she has not eaten or slept in 5 days time, and she mentioned thoughts of suicide to the provider in the triage area, however she is denying that at time of my evaluation, she is resting comfortably on the stretcher, does not appear anxious or panicky at this time, in fact she was sleeping and required tactile stimuli to wake her up - Related Data Allergies/Adverse Reactions: Soap [From Betadine] Allergy (Intermediate, Verified 07/11/17 19:08) RASH povidone-iodine [From Betadine] Allergy (Verified 07/11/17 19:08) RASH Past Medical History - General Information source: Patient - Social History Smoking Status: Current Every Day Smoker Chew tobacco use (# tins/day): No Frequency of alcohol use: Occasional Drug Abuse: Marijuana Family History: Reviewed & Not Pertinent Patient has suicidal ideation: No Patient has homicidal ideation: No - Past Medical History Cardiac Medical History: Reports: Hx Hypertension Renal/ Medical History: Denies: Hx Peritoneal Dialysis Psychiatric Medical History: Reports: Hx Anxiety, Hx Bipolar Disorder, Hx Depression Past Surgical History: Reports: Hx Orthopedic Surgery - R arm, R ankle, Hx Tonsillectomy, Hx Tubal Ligation - Immunizations Hx Diphtheria, Pertussis, Tetanus Vaccination: Yes Review of Systems - Review of Systems Constitutional: No symptoms reported EENT: No symptoms reported Cardiovascular: No symptoms reported Respiratory: No symptoms reported Gastrointestinal: No symptoms reported Genitourinary: No symptoms reported Female Genitourinary: No symptoms reported Musculoskeletal: No symptoms reported Skin: No symptoms reported Hematologic/Lymphatic: No symptoms reported Neurological/Psychological: See HPI -: Yes All other systems reviewed and negative Physical Exam - Vital signs Vitals: Temp Pulse Resp BP Pulse Ox 98.7 F 126 H 24 H 116/76 98 08/23/17 19:17 07/11/17 19:17 07/11/17 19:17 07/11/17 19:17 07/11/17 19:17 Interpretation: Normal - General General appearance: Appears well, Alert - HEENT Head: Normocephalic, Atraumatic Eyes: Normal Pupils: PERRL - Respiratory Respiratory status: No respiratory distress Chest status: Nontender Breath sounds: Normal Chest palpation: Normal - Cardiovascular Rhythm: Regular Heart sounds: Normal auscultation Murmur: No - Abdominal Inspection: Normal Distension: No distension Bowel sounds: Normal Tenderness: Nontender Organomegaly: No organomegaly - Back Back: Normal, Nontender - Extremities General upper extremity: Normal inspection, Nontender, Normal color, Normal ROM , Normal temperature General lower extremity: Normal inspection, Nontender, Normal color, Normal ROM , Normal temperature, Normal weight bearing. No: Alexandrea's sign - Neurological Neuro grossly intact: Yes Cognition: Normal Orientation: AAOx4 Liz Coma Scale Eye Opening: Spontaneous [place] Coma Scale Verbal: Oriented [place] Coma Scale Motor: Obeys Commands Liz Coma Scale Total: 15 Speech: Normal Motor strength normal: LUE, RUE, LLE, RLE Sensory: Normal - Psychological Associated symptoms: Normal affect, Normal mood - Skin Skin Temperature: Warm Skin Moisture: Dry Skin Color: Normal Course - Re-evaluation Re-evalutation: 07/12/17 03:55 Patient was sleeping comfortably on stretcher at time of my evaluation, reports feeling much better, requesting a sandwich and a ride home, patient denies any suicidal ideation, she was discharged with instructions for follow-up and advised to return if any additional concerns, patient acknowledges understanding and agreement with this plan - Vital Signs Vital signs: Temp Pulse Resp BP Pulse Ox 98.6 F 91 24 H 129/83 H 98 07/12/17 02:13 07/12/17 02:13 07/11/17 19:17 07/12/17 02:13 07/12/17 02:13 Discharge - Discharge Clinical Impression: Panic attack Condition: Stable Disposition: HOME, SELF-CARE Instructions: Panic Attack ([facility]) Additional Instructions: Follow up with your primary care provider in one to 2 days. Return to the emergency room immediately if symptoms worsen or any additional concerns.
[2017-07-12 02:14] VITALS: BP 129/83
== END 2017-07-12 02:14 | disposition home or self-care (01) ==
LOC: ER 18:50
DX: F41.0 Panic disorder [episodic paroxysmal anxiety] (principal); I10 Essential (primary) hypertension; F17.200 Nicotine dependence, unspecified, uncomplicated; Z88.3 Allergy status to other anti-infective agents
CPT/HCPCS: 99285; A9270

== ENCOUNTER 2017-07-13 08:19 | Emergency (ER) | payer MEDICARE, MEDICAID ==
--- NOTE | 2017-07-13 10:02 | ER Document Report ---
ED General - General Chief Complaint: Anxiety Stated Complaint: ANXIETY Time Seen by Provider: 07/13/17 09:06 TRAVEL OUTSIDE OF THE U.S. IN LAST 30 DAYS: No - HPI Patient complains to provider of: Anxiety Notes: Patient coming in for evaluation of anxiety. Patient has a history of multiple ER visits for anxiety. Patient brought in by EMS found sleeping in the bed. Upon reevaluation patient was then laid on the floor. Easily redirected to the bed patient admits to multiple visits to the local hospitals for her anxiety recently. Patient denies any homicidal suicidal ideation. Upon evaluation outpatient starting the right back and forth in bed biting her pillow. However patient otherwise is easily redirected. Patient is asked to the transfer to [facility] I did explain to the patient this time that we would not do that patient continue to escalate. Patient has a history changing her behavior to manipulated situation. At this time patient is easily redirectable. - Related Data Allergies/Adverse Reactions: Soap [From Betadine] Allergy (Intermediate, Verified 07/11/17 19:08) RASH povidone-iodine [From Betadine] Allergy (Verified 07/11/17 19:08) RASH Past Medical History - Social History Smoking Status: Never Smoker Chew tobacco use (# tins/day): No Frequency of alcohol use: None Drug Abuse: None Family History: Reviewed & Not Pertinent - Past Medical History Cardiac Medical History: Reports: Hx Hypertension Renal/ Medical History: Denies: Hx Peritoneal Dialysis Psychiatric Medical History: Reports: Hx Anxiety, Hx Bipolar Disorder, Hx Depression Past Surgical History: Reports: Hx Orthopedic Surgery - R arm, R ankle, Hx Tonsillectomy, Hx Tubal Ligation - Immunizations Hx Diphtheria, Pertussis, Tetanus Vaccination: Yes Review of Systems - Review of Systems Constitutional: No symptoms reported EENT: No symptoms reported Cardiovascular: No symptoms reported Respiratory: No symptoms reported Gastrointestinal: No symptoms reported Genitourinary: No symptoms reported Female Genitourinary: No symptoms reported Musculoskeletal: No symptoms reported Skin: No symptoms reported Hematologic/Lymphatic: No symptoms reported Neurological/Psychological: Anxiety -: Yes All other systems reviewed and negative Physical Exam - Vital signs Vitals: Resp 18 07/13/17 08:46 Interpretation: Normal - General General appearance: Appears well, Alert - HEENT Head: Normocephalic, Atraumatic Eyes: Normal Pupils: PERRL - Respiratory Respiratory status: No respiratory distress Chest status: Nontender Breath sounds: Normal Chest palpation: Normal - Cardiovascular Rhythm: Regular Heart sounds: Normal auscultation Murmur: No - Abdominal Inspection: Normal Distension: No distension Bowel sounds: Normal Tenderness: Nontender Organomegaly: No organomegaly - Back Back: Normal, Nontender - Extremities General upper extremity: Normal inspection, Nontender, Normal color, Normal ROM , Normal temperature General lower extremity: Normal inspection, Nontender, Normal color, Normal ROM , Normal temperature, Normal weight bearing. No: Alexandrea's sign - Neurological Neuro grossly intact: Yes Cognition: Normal Orientation: AAOx4 [place] Coma Scale Eye Opening: Spontaneous Liz Coma Scale Verbal: Oriented [place] Coma Scale Motor: Obeys Commands [place] Coma Scale Total: 15 Speech: Normal Motor strength normal: LUE, RUE, LLE, RLE Sensory: Normal - Psychological Associated symptoms: Other - Initially patient was sleeping lying in bed patient is easily redirectable. Patient's answers questions with congruent thought her becomes more agitated when we tell her that we cannot provide her with specific services - Skin Skin Temperature: Warm Skin Moisture: Dry Skin Color: Normal Course - Re-evaluation Re-evalutation: 07/13/17 10:01 Patient presentation looks to be baseline for the patient. Patient was evaluated by our psychiatric team. We will attempt to contact her outpatient psychiatric providers however patient is stable for discharge - Vital Signs Vital signs: Temp Pulse Resp BP Pulse Ox 18 07/13/17 08:46 Discharge - Discharge Clinical Impression: Anxiety Condition: Good Disposition: HOME, SELF-CARE Instructions: Anxiety ([facility]) Additional Instructions: Follow-up with your outpatient resources for further evaluation of your anxiety.
[2017-07-13 10:22] VITALS: BP 147/90
--- NOTE | 2017-07-13 10:38 | ER Document Report ---
ED Psych Disorder / Suicide - General Chief Complaint: Anxiety Stated Complaint: ANXIETY Time Seen by Provider: 07/13/17 09:06 TRAVEL OUTSIDE OF THE U.S. IN LAST 30 DAYS: No - HPI Notes: Pt presented to the ED with complaints of anxiety. Pt reported that she is out of ativan that she normally takes and does not have an appointment until July 26. Pt denies suicidal ideation and homicidal ideation. Pt stated "I am tried of living like this with these panic attacks. I want help. Does [facility] have any beds available?" Pt breathing is equal and unlabored. Clinician attempted evaluation with patient patient was sitting on hands and knees with a pillow underneath her. Patient was screaming and biting the pillow. Patient was able to disclose she was having a panic attack and that biting a pillow helps. Patient states that she needs Ativan to help with her anxiety. When it was made clear patient was unable to receive this prescription patient started rocking and screaming more into the pillow. Patient was asked to be sent [facility] because she cannot "live like this anymore" and that she will hurt herself if we do not center. Patient was asked why she stated she did not have any suicidal ideation until after being told she could not be transported to [facility]. Patient states she cannot live like this anymore. It was explained to patient that patient can voluntarily go to [facility] on her own to see if they will take her. Patient is alert and orientated to person, place, time and circumstance. Patient is demonstrating behavioral outburst stating that she is in a panic attack. Patient is not demonstrating any behavior that traditionally manifests when in a panic attack and is more congruent with the behavioral outbursts and attempt to achieve a secondary gain. Patient originally disclosed she was not suicidal however upon being told she could not receive any narcotics or be transported to [facility] patient verbally threatened stating she would hurt herself if this did not happen. Attention and concentration are poor. Insight , judgment, impulse control appear to be good and motivated by secondary gain. 296.80 (F31.9) Unspecified Bipolar Disorder by history 300.00 (F41.9) Unspecified Anxiety Disorder by history 304.10 (F13.20) Sedative Use disorder; Ativan by history Impression\\plan: Patient is considered psychiatrically clear for discharge. Patient is not demonstrating any behaviors congruent with an anxiety attack rather a behavioral outburst in attempt to achieve secondary gain. Patient originally stated she was not suicidal and then when not receiving her demands verbally threatened clinician stating that she would "hurt myself if I am not sent to [facility]." Patient does not meet IVC criteria per [place] GS 122C. Patient is presenting congruent to prior presentations, dating back to 2010. Patient is known to presents specifically requesting Ativan, IM or PO to manage her anxiety. Patient has resources, to include a psychiatric provider, [facility] in [place]. Patient was provided additional resources to assist her, to include [facility]. Dr. Trinidad was consulted on the care and management of this patient; attending physician is in agreement with recommendations and disposition. - Related Data Allergies/Adverse Reactions: Soap [From Betadine] Allergy (Intermediate, Verified 07/11/17 19:08) RASH povidone-iodine [From Betadine] Allergy (Verified 07/11/17 19:08) RASH Past Medical History - Social History Smoking Status: Never Smoker Chew tobacco use (# tins/day): No Frequency of alcohol use: None Drug Abuse: None Family History: Reviewed & Not Pertinent - Past Medical History Cardiac Medical History: Reports: Hx Hypertension Renal/ Medical History: Denies: Hx Peritoneal Dialysis Psychiatric Medical History: Reports: Hx Anxiety, Hx Bipolar Disorder, Hx Depression Past Surgical History: Reports: Hx Orthopedic Surgery - R arm, R ankle, Hx Tonsillectomy, Hx Tubal Ligation - Immunizations Hx Diphtheria, Pertussis, Tetanus Vaccination: Yes Physical Exam - Vital signs Vitals: Resp 18 07/13/17 08:46 Course - Vital Signs Vital signs: Temp Pulse Resp BP Pulse Ox 98.2 F 105 H 18 147/90 H 94 07/13/17 10:10 07/13/17 10:10 07/13/17 10:10 07/13/17 10:10 07/13/17 10:10 Discharge - Discharge Clinical Impression: Drug-seeking behavior Condition: Good Disposition: HOME, SELF-CARE Instructions: Anxiety ([facility]) Additional Instructions: Follow-up with your outpatient resources for further evaluation of your anxiety.
== END 2017-07-13 10:23 | disposition home or self-care (01) ==
LOC: ER 08:19
DX: F41.9 Anxiety disorder, unspecified (principal); Z76.5 Malingerer [conscious simulation]; F13.90 Sedative, hypnotic, or anxiolytic use, unspecified, uncomplicated; F31.9 Bipolar disorder, unspecified; I10 Essential (primary) hypertension; Z88.3 Allergy status to other anti-infective agents
CPT/HCPCS: 99283

== ENCOUNTER 2017-07-16 12:06 | Emergency (ER) | payer MEDICARE, MEDICAID ==
--- NOTE | 2017-07-16 12:29 | ER Document Report ---
ED Psych Disorder / Suicide - General Chief Complaint: Abdominal Pain Stated Complaint: ABDOMINAL PAIN Time Seen by Provider: 07/16/17 12:13 Mode of Arrival: Medic Information source: Patient, Outside Facility Records Notes: Pt is a 57 year old female with a history of bipolar 1 disorder, anxiety, drug- seeking behavior was very well-known to this emergency department who has recently become a resident at [facility] and they're having her brought here today because she was crying out and complaining of epigastric pain today. She is unable to tell me any more information. TRAVEL OUTSIDE OF THE U.S. IN LAST 30 DAYS: No - Related Data Allergies/Adverse Reactions: Soap [From Betadine] Allergy (Intermediate, Verified 07/11/17 19:08) RASH povidone-iodine [From Betadine] Allergy (Verified 07/11/17 19:08) RASH Past Medical History - General Information source: Patient, Outside Facility Records - Social History Smoking Status: Unknown if Ever Smoked Family History: Reviewed & Not Pertinent - Past Medical History Cardiac Medical History: Reports: Hx Hypertension Renal/ Medical History: Denies: Hx Peritoneal Dialysis Psychiatric Medical History: Reports: Hx Anxiety, Hx Bipolar Disorder, Hx Depression Past Surgical History: Reports: Hx Orthopedic Surgery - R arm, R ankle, Hx Tonsillectomy, Hx Tubal Ligation - Immunizations Hx Diphtheria, Pertussis, Tetanus Vaccination: Yes Review of Systems - Review of Systems Constitutional: No symptoms reported EENT: No symptoms reported Cardiovascular: No symptoms reported Respiratory: No symptoms reported Gastrointestinal: See HPI Genitourinary: No symptoms reported Female Genitourinary: No symptoms reported Musculoskeletal: No symptoms reported Skin: No symptoms reported Hematologic/Lymphatic: No symptoms reported Neurological/Psychological: See HPI Physical Exam - Vital signs Vitals: Temp Pulse Resp BP Pulse Ox 98 F 100 22 H 184/111 H 96 07/16/17 12:21 07/16/17 12:21 07/16/17 12:21 07/16/17 12:21 07/16/17 12:21 - Notes Notes: PHYSICAL EXAMINATION: GENERAL: laying on mat on floor in room quietly on her abdomen, in no acute distress. HEAD: Atraumatic, normocephalic. EYES: Pupils equal round and reactive to light, extraocular movements intact, sclera anicteric, conjunctiva are normal. NECK: Normal range of motion, supple without lymphadenopathy LUNGS: CTAB and equal. No wheezes rales or rhonchi. HEART: Regular rate and rhythm without murmurs ABDOMEN: Soft, no tenderness. No guarding, no rebound EXTREMITIES: Normal range of motion, no pitting edema. No cyanosis. NEUROLOGICAL: Cranial nerves grossly intact. Normal sensory/motor exams. PSYCH: lashing out, screaming nonsense, c/w her chronic behavior SKIN: Warm, Dry, normal turgor, no rashes or lesions noted Course - Re-evaluation Re-evalutation: 07/17/17 18:38 Patient is appearing to be at her baseline today. She will not let me further evaluate her and she will not answer any further questions. It was stated by nurses here today that they witnessed her sticking her finger down her throat and making herself vomit. 07/17/17 18:39 - Vital Signs Vital signs: Temp Pulse Resp BP Pulse Ox 98 F 100 22 H 184/111 H 96 07/16/17 12:21 07/16/17 12:21 07/16/17 12:34 07/16/17 12:21 07/16/17 12:21 Discharge - Discharge Clinical Impression: self inflicted vomiting, Drug-seeking behavior Condition: Stable Disposition: SNF-Other Additional Instructions: Return immediately for any new or worsening symptoms. Follow up with primary care provider, call tomorrow to make followup appointment. Referrals: BAUDILIO LOYD MD [Primary Care Provider] - Follow up as needed
[2017-07-16 12:30] VITALS: BP 184/111
== END 2017-07-16 12:43 ==
LOC: ER 12:06
DX: Z76.5 Malingerer [conscious simulation] (principal); I10 Essential (primary) hypertension; Z88.3 Allergy status to other anti-infective agents
CPT/HCPCS: 99283

== ENCOUNTER 2017-08-13 21:52 | Emergency (ER) | payer MEDICARE, OTHER ==
--- NOTE | 2017-08-13 22:30 | ER Document Report ---
ED Psych Disorder / Suicide - General Mode of Arrival: Ambulatory Information source: Patient TRAVEL OUTSIDE OF THE U.S. IN LAST 30 DAYS: No - General Chief Complaint: Psych Problem Stated Complaint: POSSIBLE ANXIETY ATTACK Time Seen by Provider: 08/13/17 22:25 Notes: This is a 57-year-old female who is well-known to this emergency department presenting with complaints of suicidal ideation and anxiety. Patient has been seen in the emergency department multiple times for similar complaints. Patient was seen on 07/13/2017 and evaluated by mental health. Patient was requesting Ativan at this time as well as requesting to be placed at [facility] inpatient. Patient was told she was not going to receive Ativan from our facility and that we could not transfer her to [facility]. Patient states today that she is out of Ativan and is again requesting this medication from our facility. Patient states she went and checked herself into [facility] and was discharged from their 2 weeks ago. Patient states that she had suicidal thoughts this morning. Patient does have a history of benzodiazepine abuse. Patient received Ativan while she was at [facility] and told to follow up with her PCP for other medications; patient has not seen [facility] or any other PCP to received Ativan. According to the [place] Controlled Substance Reporting System the patient last filled a prescription for Ativan on 06/22/2017 in [place] and she also filled 100 10 mg Oxycodone on 08/01/2017. ([facility] ) - Related Data Allergies/Adverse Reactions: Soap [From Betadine] Allergy (Intermediate, Verified 07/11/17 19:08) RASH povidone-iodine [From Betadine] Allergy (Verified 07/11/17 19:08) RASH Past Medical History - Social History Smoking Status: Current Every Day Smoker Chew tobacco use (# tins/day): No Frequency of alcohol use: None Drug Abuse: None Family History: Reviewed & Not Pertinent - Past Medical History Cardiac Medical History: Reports: Hx Hypertension Renal/ Medical History: Denies: Hx Peritoneal Dialysis Psychiatric Medical History: Reports: Hx Anxiety, Hx Bipolar Disorder, Hx Depression Past Surgical History: Reports: Hx Orthopedic Surgery - R arm, R ankle, Hx Tonsillectomy, Hx Tubal Ligation - Immunizations Hx Diphtheria, Pertussis, Tetanus Vaccination: Yes Review of Systems - Review of Systems Constitutional: No symptoms reported EENT: No symptoms reported Cardiovascular: No symptoms reported Respiratory: No symptoms reported Gastrointestinal: No symptoms reported Genitourinary: No symptoms reported Female Genitourinary: No symptoms reported Musculoskeletal: No symptoms reported Skin: No symptoms reported Hematologic/Lymphatic: No symptoms reported Neurological/Psychological: See HPI, Anxiety, Suicidal ideation -: Yes All other systems reviewed and negative Physical Exam - General General appearance: Appears well, Alert, Other - resting in bed comfortably, interacts well In distress: None - HEENT Head: Normocephalic, Atraumatic Eyes: Normal Pupils: PERRL Mucous membranes: Moist - Respiratory Respiratory status: No respiratory distress - Cardiovascular Rhythm: Regular - Abdominal Inspection: Normal Distension: No distension - Back Back: Normal - Extremities General upper extremity: Normal inspection, Normal ROM, Normal strength General lower extremity: Normal inspection, Normal ROM, Normal strength - Neurological Neuro grossly intact: Yes Cognition: Normal Orientation: AAOx4 Liz Coma Scale Eye Opening: Spontaneous [place] Coma Scale Verbal: Oriented [place] Coma Scale Motor: Obeys Commands [place] Coma Scale Total: 15 Speech: Normal Sensory: Normal - Psychological Associated symptoms: Normal affect, Normal mood - Skin Skin Temperature: Warm Skin Moisture: Dry Course - Re-evaluation Re-evalutation: 08/13/17 22:48 This patient who is a chronic abuser the emergency room coming here acting out trying to get injection medications usually, comes tonight wanting Ativan prescriptions. She states she ran out. Her last prescription was filled on 06/22 for Ativan. She was seen here on 07/13/2017 complaining of running out of her Ativan wanting to be admitted to [facility], she was seen by Dr. Trinidad who had her go home without the medications. She claims that she was admitted and [facility] subsequent to that by checking herself in and staying there for 2 weeks. She also claims she is supposed to Skype with the doctor from [facility] to [place] to get her medications but has been unable to due to a in her family. Reviewing the [place] database it appears someone in [facility] is giving her 100 oxycodone 10 mg tablets on a monthly basis, 12 days ago. She was informed that we will not provide her narcotics or benzodiazepines and she must follow-up with her own doctors. At this time she is resting quietly. She is not tachycardic, she is not anxious , but she is known to turn it on and off at will. ([facility]) Discharge - Discharge Clinical Impression: Anxiety, Drug-seeking behavior Condition: Stable Disposition: HOME, SELF-CARE Additional Instructions: You must follow-up with your primary care provider, prior [place], [facility], or [facility] tomorrow for additional medications that you request. The emergency room will not provide you with prescriptions for narcotic or benzodiazepine medications. Laceyibe Attestation: 08/13/17 22:48 I personally performed the services described in the documentation, reviewed and edited the documentation which was dictated to the scribe in my presence, and it accurately records my words and actions. (CHESTER HAJI) Scribe Documentation - Scribe Written by Bhavya:: Bhavya Zaldivar 08/13/2017 23:15 acting as scribe for :: Lucho
[2017-08-13] MEDS ORDERED: DIPHENHYDRAMINE HCL 50 MG CAPSULE PO ONE (22:51)
--- NOTE | 2017-08-14 16:46 | EKG REPORT ---
SEVERITY:- ABNORMAL ECG - SINUS RHYTHM PROBABLE LEFT ATRIAL ABNORMALITY PROBABLE LEFT VENTRICULAR HYPERTROPHY : Confirmed by: Leticia Underwood MD 14-Aug-2017 16:45:18
== END 2017-08-13 23:37 | disposition home or self-care (01) ==
LOC: ER 21:52
DX: F41.9 Anxiety disorder, unspecified (principal); Z76.5 Malingerer [conscious simulation]; F17.200 Nicotine dependence, unspecified, uncomplicated; I10 Essential (primary) hypertension; Z98.51 Tubal ligation status
CPT/HCPCS: 93005; 99284; 93010; A9270

== ENCOUNTER 2017-09-15 07:09 | Emergency (ER) | payer MEDICARE, OTHER ==
--- NOTE | 2017-09-15 07:21 | ER Document Report ---
ED General - General Stated Complaint: LEOBARDO LARA Time Seen by Provider: 09/15/17 07:16 Mode of Arrival: Medic Information source: Patient, Emergency Med Personnel TRAVEL OUTSIDE OF THE [place] IN LAST 30 DAYS: No - HPI Onset: Other - Chronic Associated symptoms: None Exacerbated by: Denies Relieved by: Denies Similar symptoms previously: Yes Recently seen / treated by doctor: Yes Notes: She is a 57-year-old female with an extensive mental health history. She is very well-known to this emergency department for frequent utilization. In fact , she was seen her last night for same symptoms for which she is here today. She is yelling and screaming, acting bizarre, attempting to lay on the floor, hyperverbal. She is not willing to calm down or follow any commands. There was an attempt made yesterday to medically screen her with laboratory studies but she was uncooperative and would not allow to do so. Apparently she is called EMS multiple times this evening and ultimately resulted in her being transported back to the emergency department after reviewing the patient's chart from earlier tonight her behavior at this time is pretty much identical to what it was earlier. She is not complaining of suicidality however she is just simply acting bizarre. She is not cooperative with any attempt to gain history, perform any type of reasonable examination, or allow access to get labs drawn for medical screening. - Related Data Allergies/Adverse Reactions: Soap [From Betadine] Allergy (Intermediate, Verified 09/15/17 07:42) RASH povidone-iodine [From Betadine] Allergy (Verified 09/15/17 07:42) RASH Past Medical History - General Information source: Patient, Emergency Med Personnel, [facility] Records Cannot obtain history due to: Mentally challenged - Social History Smoking Status: Current Every Day Smoker Family History: Reviewed & Not Pertinent - Past Medical History Cardiac Medical History: Reports: Hx Hypertension Renal/ Medical History: Denies: Hx Peritoneal Dialysis Psychiatric Medical History: Reports: Hx Anxiety, Hx Bipolar Disorder, Hx Depression Past Surgical History: Reports: Hx Orthopedic Surgery - R arm, R ankle, Hx Tonsillectomy, Hx Tubal Ligation - Immunizations Hx Diphtheria, Pertussis, Tetanus Vaccination: Yes Review of Systems - Review of Systems -: Yes ROS unobtainable due to patient's medical condition Physical Exam - Vital signs Vitals: Temp Pulse Resp BP Pulse Ox 98.3 F 95 17 147/114 H 97 09/15/17 07:15 09/15/17 07:15 09/15/17 07:15 09/15/17 07:15 09/15/17 07:15 Interpretation: Normal - General General appearance: Appears well, Alert, Anxious, Combative - HEENT Head: Normocephalic Eyes: Normal Mouth/Lips: Normal Mucous membranes: Normal - Respiratory Respiratory status: No respiratory distress Breath sounds: Normal - Cardiovascular Rhythm: Regular Heart sounds: Normal auscultation Murmur: No - Extremities General upper extremity: Normal inspection, Nontender, Normal color, Normal ROM , Normal temperature General lower extremity: Normal inspection, Nontender, Normal color, Normal ROM , Normal temperature, Normal weight bearing. No: Alexandrea's sign - Neurological Neuro grossly intact: Yes Cognition: Inattentive Orientation: AAOx4 Liz Coma Scale Eye Opening: Spontaneous [place] Coma Scale Verbal: Oriented Liz Coma Scale Motor: Obeys Commands Liz Coma Scale Total: 15 Speech: Normal Motor strength normal: LUE, RUE, LLE, RLE Sensory: Normal - Psychological Associated symptoms: Agitated, Anxious, Uncooperative Course - Re-evaluation Re-evalutation: 09/15/17 07:20 I have attempted to speak with patient and explained to her that if she would calm down we would be able to assist her with medical clearance however she refuses to do so and continues her same behavior. 09/15/17 08:30 I was able to retrieve the lab studies that were performed last night. Patient was agreeable to provide us urine today. Based on the results of those studies , she is medically cleared for mental health evaluation. There is no indication for involuntary commitment from this facility. Patient was discharged home and she is free to follow-up at any mental health facility of her choice. She will be given results of her lab studies that can be used for her medical clearance. This is been discussed in detail with the patient. - Vital Signs Vital signs: Temp Pulse Resp BP Pulse Ox 98.3 F 95 17 147/114 H 97 09/15/17 07:15 09/15/17 07:15 09/15/17 07:15 09/15/17 07:15 09/15/17 07:15 - Laboratory Laboratory results interpreted by me: 09/15/17 07:30 Ur Leukocyte Esterase TRACE H Discharge - Discharge Clinical Impression: Anxiety Condition: Good Disposition: HOME, SELF-CARE Instructions: Anxiety ([facility]) Additional Instructions: You have been given a copy of your laboratory studies. Follow-up with the mental health facility of your choice. Return to the emergency department for any problems. Referrals: [facility] [Provider Group] - Follow up as needed
[2017-09-15 07:42] VITALS: BP 147/114
[2017-09-15 08:02] LABS: APPEARANCE,URINE SLIGHTLY-CLOUDY; BILIRUBIN,URINE NEGATIVE (NEGATIVE); GLUCOSE, URINE NEGATIVE (NEGATIVE); KETONES,URINE NEGATIVE (NEGATIVE); LEUKOCYTE ESTERASE,URINE TRACE (NEGATIVE); NITRITE,URINE NEGATIVE (NEGATIVE); PROTEIN,URINE NEGATIVE (NEGATIVE); URINE SPECIFIC GRAVITY 1.018; UROBILINOGEN,URINE NEGATIVE mg/dL (<2.0)
[2017-09-15 08:09] LABS: URINE BARBITURATES SCREEN NEGATIVE; URINE METHADONE SCREEN NEGATIVE; URINE OPIATES LOW UNCONFIRMED POSITIVE; URINE PHENCYCLIDINE SCREEN NEGATIVE
== END 2017-09-15 08:43 | disposition home or self-care (01) ==
LOC: ER 07:09
DX: F41.9 Anxiety disorder, unspecified (principal); F17.200 Nicotine dependence, unspecified, uncomplicated
CPT/HCPCS: 80307; 81001; 99283

== ENCOUNTER → 2017-10-08 | Outpatient (CLI) | payer MEDICARE, OTHER ==
[2017-10-08 10:03] LABS: HEMATOCRIT 35.7 % (36.0-47.0); HEMOGLOBIN 12.1 g/dL (12.0-15.5); HGB HCT DIFFERENCE 0.6; MEAN CORPUSCULAR HEMOGLOBIN 31.8 pg (27.0-33.4); MEAN CORPUSCULAR HGB CONC 33.9 g/dL (32.0-36.0); MEAN CORPUSCULAR VOLUME 94 fl (80-97); RED BLOOD COUNT 3.82 10^6/uL (3.72-5.28); RED CELL DISTRIBUTION WIDTH 15.3 % (11.5-14.0); WHITE BLOOD COUNT 6.7 10^3/uL (4.0-10.5)
[2017-10-08 10:41] LABS: ALANINE AMINOTRANSFERASE 26 U/L (9-52); ALBUMIN 3.8 g/dL (3.5-5.0); ALKALINE PHOSPHATASE 103 U/L (38-126); ANION GAP 13 (5-19); ASPARTATE AMINO TRANSFERASE 25 U/L (14-36); BILIRUBIN,DIRECT 0.3 mg/dL (0.0-0.4); BILIRUBIN,TOTAL 0.3 mg/dL (0.2-1.3); BLOOD UREA NITROGEN 11 mg/dL (7-20); CALCIUM 9.4 mg/dL (8.4-10.2); CARBON DIOXIDE 21 mmol/L (22-30); CHLORIDE 111 mmol/L (98-107); CHOLESTEROL 199.39 mg/dL (0-200); CREATININE RESULT 0.67 mg/dL (0.52-1.25); Direct HDL 68 mg/dL (>40); GLUCOSE 109 mg/dL (75-110); POTASSIUM 4.1 mmol/L (3.6-5.0); SODIUM 144.6 mmol/L (137-145); TOTAL PROTEIN 6.9 g/dL (6.3-8.2); TRIGLYCERIDES 112 mg/dL (<150)
[2017-10-08 10:52] LABS: DIRECT LDL 94 mg/dL (<100)
== END ==
LOC: RAD 09:16
PROVIDERS: ATTEND Nurse Practitioner Family
DX: I10 Essential (primary) hypertension (principal); M25.571 Pain in right ankle and joints of right foot
CPT/HCPCS: 36415; 80053; 80061; 85027

== ENCOUNTER 2017-11-09 12:08 | Emergency (ER) | payer MEDICARE, OTHER ==
[2017-11-09 12:30] VITALS: BP 151/89
[2017-11-09] MEDS ORDERED: QUETIAPINE FUMARATE 25 MG TABLET PO ONE (13:07)
--- NOTE | 2017-11-09 14:15 | ER Document Report ---
ED General - General Chief Complaint: Anxiety Stated Complaint: PANIC ATTACK Time Seen by Provider: 11/09/17 12:22 Mode of Arrival: Ambulatory Information source: Patient Notes: 57-year-old female history of drug-seeking behavior presents with anxiety. Patient is at her usual baseline state noted to be screaming and throwing herself on the floor. Patient has been seen multiple times with these similar presentations. She denies any pain admits that she has not taken her medication today Patient notes she was at a psych facility for 5 days and got out last Sunday TRAVEL OUTSIDE OF THE [place] IN LAST 30 DAYS: No - HPI Onset: Just prior to arrival Onset/Duration: Sudden Quality of pain: No pain Severity: Mild Pain Level: Denies Associated symptoms: Other Exacerbated by: Denies Relieved by: Denies Similar symptoms previously: Yes Recently seen / treated by doctor: Yes - Related Data Allergies/Adverse Reactions: Soap [From Betadine] Allergy (Intermediate, Verified 09/15/17 07:42) RASH povidone-iodine [From Betadine] Allergy (Verified 09/15/17 07:42) RASH Past Medical History - Social History Smoking Status: Never Smoker Cigarette use (# per day): No Chew tobacco use (# tins/day): No Smoking Education Provided: No Frequency of alcohol use: None Drug Abuse: None Family History: Reviewed & Not Pertinent Patient has suicidal ideation: No Patient has homicidal ideation: No - Past Medical History Cardiac Medical History: Reports: Hx Hypertension Renal/ Medical History: Denies: Hx Peritoneal Dialysis Psychiatric Medical History: Reports: Hx Anxiety, Hx Bipolar Disorder, Hx Depression Past Surgical History: Reports: Hx Orthopedic Surgery - R arm, R ankle, Hx Tonsillectomy, Hx Tubal Ligation - Immunizations Hx Diphtheria, Pertussis, Tetanus Vaccination: Yes Review of Systems - Review of Systems Notes: REVIEW OF SYSTEMS: CONSTITUTIONAL : Denies fever, chills, or sweats. Denies recent illness. EENT: Denies eye, ear, throat, or mouth pain or symptoms. Denies nasal or sinus congestion or discharge. Denies throat, tongue, or mouth swelling or difficulty swallowing. CARDIOVASCULAR: Denies chest pain. Denies palpitations or racing or irregular heart beat. Denies ankle edema. RESPIRATORY: Denies cough, cold, or chest congestion. Denies shortness of breath, difficulty breathing, or wheezing. GASTROINTESTINAL: Denies abdominal pain or distention. Denies nausea, vomiting , or diarrhea. Denies blood in vomitus, stools, or per rectum. Denies black, tarry stools. Denies constipation. GENITOURINARY: Denies difficulty urinating, painful urination, burning, frequency, blood in urine, or discharge. FEMALE GENITOURINARY: Denies vaginal bleeding, heavy or abnormal periods, irregular periods. Denies vaginal discharge or odor. MUSCULOSKELETAL: Denies back or neck pain or stiffness. Denies joint pain or swelling. SKIN: Denies rash, lesions or sores. HEMATOLOGIC : Denies easy bruising or bleeding. LYMPHATIC: Denies swollen, enlarged glands. NEUROLOGICAL: Denies confusion or altered mental status. Denies passing out or loss of consciousness. Denies dizziness or lightheadedness. Denies headache. Denies weakness or paralysis or loss of use of either side. Denies problems with gait or speech. Denies sensory loss, numbness, or tingling. Denies seizures. PSYCHIATRIC: Admits to stress and anxiety ALL OTHER SYSTEMS REVIEWED AND NEGATIVE. PHYSICAL EXAMINATION: GENERAL: Well-appearing, well-nourished and in no acute distress. HEAD: Atraumatic, normocephalic. EYES: Pupils equal round and reactive to light, extraocular movements intact, conjunctiva are normal. ENT: Nares patent, oropharynx clear without exudates. Moist mucous membranes. NECK: Normal range of motion, supple without lymphadenopathy LUNGS: Breath sounds clear to auscultation bilaterally and equal. No wheezes rales or rhonchi. HEART: Regular rate and rhythm without murmurs ABDOMEN: Soft, nontender, nondistended abdomen. No guarding, no rebound. No masses appreciated. Female : deferred Musculoskeletal: Normal range of motion, no pitting or edema. No cyanosis. NEUROLOGICAL: Cranial nerves grossly intact. Normal speech, normal gait. Normal sensory, motor exams PSYCH: Patient is yelling screaming and throwing herself on the floor SKIN: Warm, Dry, normal turgor, no rashes or lesions noted. Dictation was performed using [employer] voice recognition software Physical Exam - Vital signs Vitals: Temp Pulse Resp BP Pulse Ox 98.3 F 106 H 16 151/89 H 96 11/09/17 12:20 11/09/17 12:20 11/09/17 12:20 11/09/17 12:20 11/09/17 12:20 Course - Re-evaluation Re-evalutation: 11/09/17 15:51 Patient's presentation is consistent with her previous drug-seeking behavior. Patient was given Seroquel and is noted to have improvement of her symptoms. She will be discharged with very close follow-up and strict return precautions have been provided to her, we will not be giving her any benzodiazepine Mental health was requested to assist with medications After performing a Medical Screening Examination, I estimate there is LOW risk for any life threatening mental health issues. At this time the patient looks extremely well and has not attempted severe self harm. I have reevaluated this patient multiple times and no significant life threatening changes are noted. The patient and I have discussed the diagnosis and risks, and we agree with discharging home with close follow-up with the understanding that symptoms and presentations can change. We also discussed returning to the Emergency Department immediately if new or worsening symptoms occur. We have discussed the symptoms which are most concerning (hallucinations, thoughts or actions of self harm or harm to others) that necessitate immediate return. - Vital Signs Vital signs: Temp Pulse Resp BP Pulse Ox 98.3 F 106 H 16 151/89 H 96 11/09/17 12:20 11/09/17 12:20 11/09/17 12:20 11/09/17 12:20 11/09/17 12:20 Discharge - Discharge Clinical Impression: Panic attack, Drug-seeking behavior Condition: Stable Disposition: HOME, SELF-CARE Instructions: Anxiety ([facility]) Additional Instructions: Follow up with your physician tomorrow for further care or return to the ED IMMEDIATELY if symptoms worsen or new concerns occur. If you cannot afford to follow up with your primary care physician a list of low cost clinics have been provided at the end of your discharge papers as well.
== END 2017-11-09 14:28 | disposition home or self-care (01) ==
LOC: ER 12:08
DX: F41.0 Panic disorder [episodic paroxysmal anxiety] (principal); Z76.5 Malingerer [conscious simulation]; I10 Essential (primary) hypertension; Z88.3 Allergy status to other anti-infective agents
CPT/HCPCS: 99283; A9270

== ENCOUNTER 2017-12-22 10:03 | Emergency (ER) | payer MEDICARE, OTHER ==
--- NOTE | 2017-12-22 10:34 | ER Document Report ---
ED General - General Chief Complaint: Suicidal Ideation Stated Complaint: SUICIDAL IDEATION Time Seen by Provider: 12/22/17 10:10 Mode of Arrival: Medic Information source: Patient Cannot obtain history due to: Uncooperative Notes: 57-year-old female extensive psychiatric history presents with complaints of panic attack. This is the patient's usual panic attack, she comes here often with exactly the same complaints, patient notes that she took her Seroquel prior to arrival but vomited up and now she is having panic attacks. TRAVEL OUTSIDE OF THE [place] IN LAST 30 DAYS: No - HPI Onset: Just prior to arrival Onset/Duration: Sudden Quality of pain: No pain Severity: Mild Pain Level: Denies Associated symptoms: Other Exacerbated by: Denies Relieved by: Denies Similar symptoms previously: No Recently seen / treated by doctor: No - Related Data Allergies/Adverse Reactions: Soap [From Betadine] Allergy (Intermediate, Verified 09/15/17 07:42) RASH povidone-iodine [From Betadine] Allergy (Verified 09/15/17 07:42) RASH Past Medical History - Social History Smoking Status: Never Smoker Cigarette use (# per day): No Chew tobacco use (# tins/day): No Smoking Education Provided: No Family History: Reviewed & Not Pertinent Patient has suicidal ideation: Yes Patient has homicidal ideation: No - Past Medical History Cardiac Medical History: Reports: Hx Hypertension Renal/ Medical History: Denies: Hx Peritoneal Dialysis Psychiatric Medical History: Reports: Hx Anxiety, Hx Bipolar Disorder, Hx Depression Past Surgical History: Reports: Hx Orthopedic Surgery - R arm, R ankle, Hx Tonsillectomy, Hx Tubal Ligation - Immunizations Hx Diphtheria, Pertussis, Tetanus Vaccination: Yes Review of Systems - Review of Systems Notes: REVIEW OF SYSTEMS: CONSTITUTIONAL : Denies fever, chills, or sweats. Denies recent illness. EENT: Denies eye, ear, throat, or mouth pain or symptoms. Denies nasal or sinus congestion or discharge. Denies throat, tongue, or mouth swelling or difficulty swallowing. CARDIOVASCULAR: Denies chest pain. Denies palpitations or racing or irregular heart beat. Denies ankle edema. RESPIRATORY: Denies cough, cold, or chest congestion. Denies shortness of breath, difficulty breathing, or wheezing. GASTROINTESTINAL: Denies abdominal pain or distention. Denies nausea, vomiting , or diarrhea. Denies blood in vomitus, stools, or per rectum. Denies black, tarry stools. Denies constipation. GENITOURINARY: Denies difficulty urinating, painful urination, burning, frequency, blood in urine, or discharge. FEMALE GENITOURINARY: Denies vaginal bleeding, heavy or abnormal periods, irregular periods. Denies vaginal discharge or odor. MUSCULOSKELETAL: Denies back or neck pain or stiffness. Denies joint pain or swelling. SKIN: Denies rash, lesions or sores. HEMATOLOGIC : Denies easy bruising or bleeding. LYMPHATIC: Denies swollen, enlarged glands. NEUROLOGICAL: Denies confusion or altered mental status. Denies passing out or loss of consciousness. Denies dizziness or lightheadedness. Denies headache. Denies weakness or paralysis or loss of use of either side. Denies problems with gait or speech. Denies sensory loss, numbness, or tingling. Denies seizures. PSYCHIATRIC: admits to anxiety stress. ALL OTHER SYSTEMS REVIEWED AND NEGATIVE. PHYSICAL EXAMINATION: GENERAL: Well-appearing, well-nourished and in no acute distress. HEAD: Atraumatic, normocephalic. EYES: Pupils equal round and reactive to light, extraocular movements intact, conjunctiva are normal. ENT: Nares patent, oropharynx clear without exudates. Moist mucous membranes. NECK: Normal range of motion, supple without lymphadenopathy LUNGS: Breath sounds clear to auscultation bilaterally and equal. No wheezes rales or rhonchi. HEART: Regular rate and rhythm without murmurs ABDOMEN: Soft, nontender, nondistended abdomen. No guarding, no rebound. No masses appreciated. Female : deferred Musculoskeletal: Normal range of motion, no pitting or edema. No cyanosis. NEUROLOGICAL: Cranial nerves grossly intact. Normal speech, normal gait. Normal sensory, motor exams PSYCH: Patient is throwing herself on the floor screaming is always SKIN: Warm, Dry, normal turgor, no rashes or lesions noted. Dictation was performed using [employer] voice recognition software Physical Exam - Vital signs Vitals: Temp Pulse Pulse Ox 98.6 F 97 97 12/22/17 10:09 12/22/17 10:09 12/22/17 10:09 Course - Re-evaluation Re-evalutation: 12/22/17 15:42 Patient is at her baseline psychiatric behavior, she is in no distress, I had mental health evaluate the patient they agree that she is stable, she will not be given any benzos here Cab ride provided After performing a Medical Screening Examination, I estimate there is LOW risk for any life threatening mental health issues. At this time the patient looks extremely well and has not attempted severe self harm. I have reevaluated this patient multiple times and no significant life threatening changes are noted. The patient and I have discussed the diagnosis and risks, and we agree with discharging home with close follow-up with the understanding that symptoms and presentations can change. We also discussed returning to the Emergency Department immediately if new or worsening symptoms occur. We have discussed the symptoms which are most concerning (hallucinations, thoughts or actions of self harm or harm to others) that necessitate immediate return. 12/22/17 15:42 - Vital Signs Vital signs: Temp Pulse Resp BP Pulse Ox 98.6 F 97 97 12/22/17 10:09 12/22/17 10:09 12/22/17 10:09 Discharge - Discharge Clinical Impression: Drug-seeking behavior, Panic attack Condition: Stable Disposition: HOME, SELF-CARE Instructions: Panic Attack ([facility]) Additional Instructions: Follow up with your physician tomorrow for further care or return to the ED IMMEDIATELY if symptoms worsen or new concerns occur. If you cannot afford to follow up with your primary care physician a list of low cost clinics have been provided at the end of your discharge papers as well.
--- NOTE | 2017-12-22 17:17 | PSYCHOLOGICAL NOTE ---
Psych Note - Psych Note Psych Note: 57-year-old female extensive psychiatric history presents with complaints of panic attack. This is the patient's usual panic attack, she comes here often with exactly the same complaints, patient notes that she took her Seroquel prior to arrival but vomited up and now she is having panic attacks. Clinician attempted to talk with patient; patient was laying across the floor. Patient was screaming and biting a towel. Patient stated she was suicidal because her friend . Patient called her sister in front of clinician. Patient stated she was at [facility] and she was being discharged. Patient was screaming into phone stating that she needed help she was suicidal and wanted to know if the urgent care was open. Patient's sister stated that the patient should come down to [place]. The patient responded that it costs money to go to that hospital. Patient then requested again if there was anything local that was open; "I have 3 insurances." Patient's sister is heard telling the patient there was nothing she could do to help the patient and hung up. Patient told the clinician to call the mobile crisis. When the clinician refused to dial mobile crisis phone number on the patient's personal cell phone , the patient started to cuss at the clinician and escalated her screaming behavior. Patient is demonstrating behavioral outburst stating that she is in a panic attack. Patient is not demonstrating any behavior that traditionally manifests when in a panic attack and is more congruent with the behavioral outbursts and attempt to achieve a secondary gain. Patient has been seen on multiple occasions for similar etiology and disclosing suicidal ideation because a in the family or friend. Patient has been observed in multiple previous visits of being able to control this behavior to include increasing in volume her yelling and rolling around on the floor when not getting what she wants. Attention and concentration are poor. Insight, judgment, impulse control appear to be good and motivated by secondary gain. 296.80 (F31.9) Unspecified Bipolar Disorder by history 300.00 (F41.9) Unspecified Anxiety Disorder by history 304.10 (F13.20) Sedative Use disorder; Ativan by history Impression\\plan: Patient is considered psychiatrically clear for discharge. Patient is not demonstrating any behaviors congruent with an anxiety attack rather a behavioral outburst in attempt to achieve secondary gain. Patient has been seen on multiple occasions for similar etiology and disclosing suicidal ideation because a in the family or friend. Patient has been observed in multiple previous visits of being able to control this behavior to include increasing in volume her yelling and rolling around on the floor when not getting what she wants. Patient does not meet IVC criteria per [place] GS 122C. Patient is presenting congruent to prior presentations, dating back to 2010. Patient is known to presents specifically requesting Ativan, IM or PO to manage her anxiety. Patient has resources, to include a psychiatric provider, [facility] in [place]. Patient was provided additional resources to assist her on multiple occasions, to include Mobile Crisis. Patient states that she wants to kill herself because a friend of hers however it is noted on multiple prior visits patient disclosing same story (for example [facility] ED visit 06/06/2017, 06/07/2017 asked etc.). Upon arrival of [facility], clinician was informed patient has been band from [facility]. Patient has a long documented polysubstance abuse issue and presents with similar etiology in attempt to obtain injection medications. Dr. Trinidad was consulted on the care and management of this patient; attending physician is in agreement with recommendations and disposition.
== END 2017-12-22 10:57 | disposition home or self-care (01) ==
LOC: ER 10:03
DX: Z76.5 Malingerer [conscious simulation] (principal); F41.0 Panic disorder [episodic paroxysmal anxiety]; R11.10 Vomiting, unspecified; Z79.899 Other long term (current) drug therapy
CPT/HCPCS: 99285

== ENCOUNTER 2018-02-06 16:57 | Emergency (ER) | payer MEDICARE, OTHER ==
--- NOTE | 2018-02-06 17:17 | ER Document Report ---
ED Psych Disorder / Suicide - General Mode of Arrival: Ambulatory Information source: Patient TRAVEL OUTSIDE OF THE [place] IN LAST 30 DAYS: No - General Chief Complaint: Psych Problem Stated Complaint: IVC WITH PAPERS Time Seen by Provider: 02/06/18 17:17 Notes: 58-year-old female stating that she is having anxiety attacks and she wants to "just kill me now" this is typical presentation I have known her for several years. She chews on a blanket flails and throws herself on the floor. She states her primary care psych is [facility]. Mental health team has left for the day. Vital signs are pulse 114, blood pressure 155/97 respiratory rate 22 pulse ox 99% and will temperature 97.5. I had the patient sit up and she sat completely calm without saying anything answering her height and weight during the vital signs after the blood pressure cuff was removed she then again avoids eye contact saying I want to I want to I want to flailing on the floor chewing on a blanket. (MARCIA HIRSCH) - Related Data Allergies/Adverse Reactions: Soap [From Betadine] Allergy (Intermediate, Verified 09/15/17 07:42) RASH povidone-iodine [From Betadine] Allergy (Verified 09/15/17 07:42) RASH Past Medical History - General Information source: Patient - Social History Smoking Status: Current Every Day Smoker Frequency of alcohol use: None Drug Abuse: None Family History: Reviewed & Not Pertinent - Past Medical History Cardiac Medical History: Reports: Hx Hypertension Renal/ Medical History: Denies: Hx Peritoneal Dialysis Psychiatric Medical History: Reports: Hx Anxiety, Hx Bipolar Disorder, Hx Depression Past Surgical History: Reports: Hx Orthopedic Surgery - R arm, R ankle, Hx Tonsillectomy, Hx Tubal Ligation - Immunizations Hx Diphtheria, Pertussis, Tetanus Vaccination: Yes Review of Systems - Review of Systems Constitutional: No symptoms reported EENT: No symptoms reported Cardiovascular: No symptoms reported Respiratory: No symptoms reported Gastrointestinal: No symptoms reported Genitourinary: No symptoms reported Female Genitourinary: No symptoms reported Musculoskeletal: No symptoms reported Skin: No symptoms reported Hematologic/Lymphatic: No symptoms reported Neurological/Psychological: See HPI Physical Exam - Vital signs Interpretation: Hypertensive, Tachycardic - General General appearance: Appears well, Alert - HEENT Head: Normocephalic, Atraumatic Eyes: Normal Mucous membranes: Normal Neck: Supple - Respiratory Respiratory status: No respiratory distress Chest status: Nontender Breath sounds: Normal Chest palpation: Normal - Cardiovascular Rhythm: Regular Heart sounds: Normal auscultation Murmur: No - Abdominal Inspection: Normal Distension: No distension Bowel sounds: Normal Tenderness: Nontender. No: Tender Organomegaly: No organomegaly - Back Back: Normal, Nontender. No: CVA tenderness - Extremities General upper extremity: Normal inspection, Nontender, Normal color, Normal ROM , Normal temperature General lower extremity: Normal inspection, Nontender, Normal color, Normal ROM , Normal temperature, Normal weight bearing. No: Alexandrea's sign - Neurological Neuro grossly intact: Yes Cognition: Normal Orientation: AAOx4 [place] Coma Scale Eye Opening: Spontaneous [place] Coma Scale Verbal: Oriented [place] Coma Scale Motor: Obeys Commands - somewhat Liz Coma Scale Total: 15 Speech: Normal Motor strength normal: LUE, RUE, LLE, RLE Sensory: Normal - Psychological Associated symptoms: Agitated, Labile, Uncooperative - Skin Skin Temperature: Warm Skin Moisture: Dry Skin Color: Normal - Vital signs Vitals: Temp 97.5 F 02/06/18 17:06 Course - Re-evaluation Re-evalutation: 02/06/18 20:19 Patient is here with complaints of some vomiting with anxiety. Patient is extremely well-known to this emergency department as well as Dr. Trinidad the psychiatrist metal fabrication supervisor. I have discussed the case with Dr. Trinidad. She states that the patient can be discharged from the emergency department at this time and can follow-up as an outpatient. The patient was refusing blood work. She was given some medications to help calm her in the emergency department which included some Haldol and Benadryl. Her urinalysis shows no obvious signs of infection. At this point the patient will be discharged home with instructions to follow-up with her outpatient psychiatrist. Follow-up sooner for any worsening symptoms or for any further concerns. (KAREL NI) - Vital Signs Vital signs: Temp Pulse Resp BP Pulse Ox 97.5 F 114 H 22 H 155/97 H 99 02/06/18 17:06 02/06/18 17:35 02/06/18 17:35 02/06/18 17:35 02/06/18 17:35 - Laboratory Laboratory results interpreted by me: 02/06/18 19:35 Urine Ketones TRACE H Urine Urobilinogen 2.0 H Discharge - Discharge Clinical Impression: Anxiety Nausea & vomiting Qualifiers: Vomiting type: unspecified Vomiting Intractability: non-intractable Qualified Code(s): R11.2 - Nausea with vomiting, unspecified Condition: Stable Disposition: HOME, SELF-CARE Instructions: Anxiety ([facility]) Additional Instructions: Follow-up with your doctor at the next available appointment. Follow-up sooner for worsening symptoms, high fever, persistent vomiting, or for any further concerns. Your blood pressure was elevated during today's visit. Have this rechecked with your doctor. Forms: Elevated Blood Pressure, Smoking Cessation Education Referrals: KAYLIE TRINIDAD PSYD [ALLIED HEALTH PROFESSIONAL] - Follow up as needed
[2018-02-06] MEDS ORDERED: DIPHENHYDRAMINE HCL 50 MG CAPSULE PO ONE (17:39)
[2018-02-06] MEDS ORDERED: HALOPERIDOL 5 MG TABLET PO ONE (17:39)
[2018-02-06] MEDS ORDERED: DIPHENHYDRAMINE HCL 50 MG/ML VIAL ONE (17:45)
[2018-02-06] MEDS ORDERED: HALOPERIDOL LACTATE INJ 5 MG/1 ML VIAL ONE (17:45)
[2018-02-06] MEDS ORDERED: HALOPERIDOL LACTATE INJ 5 MG/1 ML VIAL IM ONE (17:53)
[2018-02-06] MEDS ORDERED: DIPHENHYDRAMINE HCL 50 MG/ML VIAL IM ONE (17:54)
[2018-02-06 19:58] LABS: APPEARANCE,URINE SLIGHTLY-CLOUDY; BILIRUBIN,URINE NEGATIVE (NEGATIVE); COLOR,URINE YELLOW; GLUCOSE, URINE NEGATIVE (NEGATIVE); KETONES,URINE TRACE mg/dL (NEGATIVE); LEUKOCYTE ESTERASE,URINE NEGATIVE (NEGATIVE); NITRITE,URINE NEGATIVE (NEGATIVE); PROTEIN,URINE NEGATIVE (NEGATIVE); URINE SPECIFIC GRAVITY 1.021
[2018-02-06] MEDS ORDERED: ONDANSETRON 4 MG TAB.RAPDIS PO ONE (20:08)
[2018-02-06 20:10] LABS: URINE AMPHETAMINES SCREEN NEGATIVE; URINE BARBITURATES SCREEN NEGATIVE; URINE BENZODIAZEPINES SCREEN NEGATIVE; URINE COCAINE SCREEN NEGATIVE; URINE MARIJUANA (THC) SCREEN UNCONFIRMED POSITIVE; URINE METHADONE SCREEN NEGATIVE; URINE PHENCYCLIDINE SCREEN NEGATIVE
--- NOTE | 2018-02-06 20:39 | PSYCHOLOGICAL NOTE ---
Psych Note - Psych Note Psych Note: Spoke with Gaston DIONY Reed, and advised him of Patient history and ongoing treatment plan. Advised him that Patient generally comes to hospital seeking medication refills, claiming suicidal ideation, or under the influence of illegal substances, yelling and screaming, and uncooperative. She is able and more than capable of managing her behavior but chooses not to, and escalates her behavior, at times physically, but mostly verbally, when engaged by staff. She refuses blood draw and other interventions but reports wanting inpatient psychiatric hospitalization. Patient verbalizes suicidal ideation without plan or intent or plan that is not possible. Advised Mr. Reed that Patient has services in place in the community and can walk into her provider's office in the morning. Generally, if her Provider wants her inpatient they do a direct admit to the facility. 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 Based on Patient's long history and consistent presentation to the ED and with staff and this Provider, along with review of her past and current chart and consultation with provider, she is considered psychiatrically clear for discharge with an aftercare plan to follow up with her provider tomorrow or at her earliest convenience.
[2018-02-06 20:56] VITALS: BP 143/80
--- NOTE | 2018-02-06 23:03 | EKG REPORT ---
SEVERITY:- ABNORMAL ECG - SINUS RHYTHM JERROD, CONSIDER BIATRIAL ABNORMALITIES PROBABLE LEFT VENTRICULAR HYPERTROPHY : Confirmed by: Deyanira Flores 06-Feb-2018 23:02:43
== END 2018-02-06 20:40 | disposition home or self-care (01) ==
LOC: ER 16:57
DX: F41.9 Anxiety disorder, unspecified (principal); R11.2 Nausea with vomiting, unspecified; I10 Essential (primary) hypertension; R00.0 Tachycardia, unspecified; F17.200 Nicotine dependence, unspecified, uncomplicated; Z88.3 Allergy status to other anti-infective agents
CPT/HCPCS: 93005; 99285; 96374; 96375; 81001; 80307; 93010; J1200; A9270; J1630; 36415; S0119

== ENCOUNTER 2018-02-07 07:09 | Emergency (ER) | payer MEDICARE, OTHER ==
[2018-02-07 07:21] VITALS: BP 124/90
--- NOTE | 2018-02-07 07:36 | ER Document Report ---
ED Psych Disorder / Suicide - General Chief Complaint: Psych Problem Stated Complaint: SUICIDAL IDEATIONS Time Seen by Provider: 02/07/18 07:28 Notes: Leticia is a 58-year-old female who presents by EMS after she was feeling sad. Patient was seen in the ER last night for the same issues and seen multiple times in the ER for similar issues. She was told to follow-up with her mental health team at [facility] this morning, but the office was not open yet. Patient is not expressing any active suicidal thoughts while in the ER and said that she will now go to her appointment. No other complaints. TRAVEL OUTSIDE OF THE [place] IN LAST 30 DAYS: No - Related Data Allergies/Adverse Reactions: Soap [From Betadine] Allergy (Intermediate, Verified 09/15/17 07:42) RASH povidone-iodine [From Betadine] Allergy (Verified 09/15/17 07:42) RASH Past Medical History - General Information source: Patient - Social History Smoking Status: Former Smoker Chew tobacco use (# tins/day): No Frequency of alcohol use: None Drug Abuse: None Family History: Reviewed & Not Pertinent Patient has suicidal ideation: Yes Patient has homicidal ideation: No - Past Medical History Cardiac Medical History: Reports: Hx Hypertension Renal/ Medical History: Denies: Hx Peritoneal Dialysis Psychiatric Medical History: Reports: Hx Anxiety, Hx Bipolar Disorder, Hx Depression Past Surgical History: Reports: Hx Orthopedic Surgery - R arm, R ankle, Hx Tonsillectomy, Hx Tubal Ligation - Immunizations Hx Diphtheria, Pertussis, Tetanus Vaccination: Yes Review of Systems - Review of Systems Notes: REVIEW OF SYSTEMS: CONSTITUTIONAL: -fevers, -chills EENT: -eye pain, -difficulty swallowing, -nasal congestion CARDIOVASCULAR: -chest pain, -syncope. RESPIRATORY: -cough, -SOB GASTROINTESTINAL: -abdominal pain, -nausea, -vomiting, -diarrhea GENITOURINARY: -dysuria, -hematuria MUSCULOSKELETAL: -back pain, -neck pain SKIN: -rash or skin lesions. HEMATOLOGIC: -easy bruising or bleeding. LYMPHATIC: -swollen, enlarged glands. NEUROLOGICAL: -altered mental status or loss of consciousness, -headache, - neurologic symptoms PSYCHIATRIC: -anxiety, +depression. ALL OTHER SYSTEMS REVIEWED AND NEGATIVE. Physical Exam - Vital signs Vitals: Temp Pulse Resp BP Pulse Ox 98.6 F 100 20 124/90 H 99 02/07/18 07:20 02/07/18 07:20 02/07/18 07:20 02/07/18 07:20 02/07/18 07:20 - Notes Notes: PHYSICAL EXAMINATION: GENERAL: Well-appearing, well-nourished and in no acute distress. HEAD: Atraumatic, normocephalic. EYES: Pupils equal round and reactive to light, extraocular movements intact, sclera anicteric, conjunctiva are normal. ENT: nares patent, oropharynx clear without exudates. Moist mucous membranes. NECK: Normal range of motion, supple without lymphadenopathy LUNGS: Breath sounds clear to auscultation bilaterally and equal. No wheezes rales or rhonchi. HEART: Regular rate and rhythm without murmurs ABDOMEN: Soft, nontender, normoactive bowel sounds. No guarding, no rebound. No masses appreciated. EXTREMITIES: Normal range of motion, no pitting or edema. No cyanosis. NEUROLOGICAL: Cranial nerves grossly intact. Normal speech, normal gait. Normal sensory and motor exams. PSYCH: Denies SI or HI to myself. SKIN: Warm, Dry, normal turgor, no rashes or lesions noted. Course - Re-evaluation Re-evalutation: Dr. Trinidad already consulted earlier in the night for this patient and recommends discharge and following up at [facility]. Patient said, "I will go there now." No IVC criteria at this time. - Vital Signs Vital signs: Temp Pulse Resp BP Pulse Ox 98.6 F 100 20 124/90 H 99 02/07/18 07:20 02/07/18 07:20 02/07/18 07:20 02/07/18 07:20 02/07/18 07:20 Discharge - Discharge Clinical Impression: Inappropriate use of leisure time Condition: Stable Disposition: HOME, SELF-CARE Additional Instructions: Go to [facility] for your appointment today. DEPRESSION: Your evaluation reveals that you have mental depression. While symptoms may be vague, they often include disturbance of sleep, fatigue, loss of appetite , and general loss of interest in life. While depression may be a side effect of drugs, or a reaction to a major change in your life, many cases have no known cause. If depression is acute, and related to a major loss in your life, you can expect it to clear completely with time. If you have been depressed a long time , are prone to repeated bouts of depression or low mood, or have been thinking of suicide, get help. Depression can be treated with anti-depressant medication and counselling. Long-term depression will often take a few weeks to clear, even with appropriate medication. Follow-up care is important. SUICIDAL IDEATION: Suicidal ideation is a common medical term for thoughts about suicide, which may be as detailed as a formulated plan, without the suicidal act itself. Although most people who undergo suicidal ideation do not commit suicide, some go on to make suicide attempts. The range of suicidal ideation varies greatly from fleeting to detailed planning, role playing, and unsuccessful attempts. While thoughts about suicide are common, most people do not carry out serious actions to commit suicide. Based upon your evaluation and discussion with you, we do not believe you are currently at risk to act upon your thoughts of suicide. You have agreed to return to the Emergency Department, at any time , if you feel inclined to act upon your suicidal thoughts. FOLLOW-UP CARE: If you have been referred to a physician for follow-up care, call the physician s office for an appointment as you were instructed or within the next two days. If you experience worsening or a significant change in your symptoms, notify the physician immediately or return to the Emergency Department at any time for re-evaluation. Forms: Elevated Blood Pressure Referrals: Jevon Sheets [Outside] - Follow up as needed
== END 2018-02-07 07:40 | disposition home or self-care (01) ==
LOC: ER 07:09
DX: R45.851 Suicidal ideations (principal); F32.9 Major depressive disorder, single episode, unspecified; I10 Essential (primary) hypertension; Z87.891 Personal history of nicotine dependence; Z98.51 Tubal ligation status
CPT/HCPCS: 99284

== ENCOUNTER 2018-02-07 11:39 | Emergency (ER) | payer MEDICARE, OTHER ==
[2018-02-07 12:04] VITALS: BP 188/102
--- NOTE | 2018-02-07 12:30 | ER Document Report ---
ED General - General Chief Complaint: Psych Problem Stated Complaint: IVC WITH PAPERS Time Seen by Provider: 02/07/18 12:25 Mode of Arrival: Ambulatory Information source: Law Enforcement Notes: 58-year-old female history of anxiety presents for medical clearance. Patient was seen here last night they noted she cannot contract for safety and was sent back in for evaluation it appears patient has a facility placement already but requires medical clearance TRAVEL OUTSIDE OF THE [place] IN LAST 30 DAYS: No - HPI Onset: Other Onset/Duration: Intermittent Quality of pain: No pain Severity: Mild Pain Level: Denies Associated symptoms: Other Exacerbated by: Denies Relieved by: Denies Similar symptoms previously: Yes Recently seen / treated by doctor: Yes - Related Data Allergies/Adverse Reactions: Soap [From Betadine] Allergy (Intermediate, Verified 09/15/17 07:42) RASH povidone-iodine [From Betadine] Allergy (Verified 09/15/17 07:42) RASH Past Medical History - Social History Smoking Status: Current Every Day Smoker Cigarette use (# per day): Yes Chew tobacco use (# tins/day): No Smoking Education Provided: No Frequency of alcohol use: Occasional Drug Abuse: None Family History: Reviewed & Not Pertinent Patient has suicidal ideation: Yes Patient has homicidal ideation: No - Past Medical History Cardiac Medical History: Reports: Hx Hypertension Renal/ Medical History: Denies: Hx Peritoneal Dialysis Psychiatric Medical History: Reports: Hx Anxiety, Hx Bipolar Disorder, Hx Depression Past Surgical History: Reports: Hx Orthopedic Surgery - R arm, R ankle, Hx Tonsillectomy, Hx Tubal Ligation - Immunizations Hx Diphtheria, Pertussis, Tetanus Vaccination: Yes Review of Systems - Review of Systems Notes: REVIEW OF SYSTEMS: CONSTITUTIONAL : Denies fever, chills, or sweats. Denies recent illness. EENT: Denies eye, ear, throat, or mouth pain or symptoms. Denies nasal or sinus congestion or discharge. Denies throat, tongue, or mouth swelling or difficulty swallowing. CARDIOVASCULAR: Denies chest pain. Denies palpitations or racing or irregular heart beat. Denies ankle edema. RESPIRATORY: Denies cough, cold, or chest congestion. Denies shortness of breath, difficulty breathing, or wheezing. GASTROINTESTINAL: Denies abdominal pain or distention. Denies nausea, vomiting , or diarrhea. Denies blood in vomitus, stools, or per rectum. Denies black, tarry stools. Denies constipation. GENITOURINARY: Denies difficulty urinating, painful urination, burning, frequency, blood in urine, or discharge. FEMALE GENITOURINARY: Denies vaginal bleeding, heavy or abnormal periods, irregular periods. Denies vaginal discharge or odor. MUSCULOSKELETAL: Denies back or neck pain or stiffness. Denies joint pain or swelling. SKIN: Denies rash, lesions or sores. HEMATOLOGIC : Denies easy bruising or bleeding. LYMPHATIC: Denies swollen, enlarged glands. NEUROLOGICAL: Denies confusion or altered mental status. Denies passing out or loss of consciousness. Denies dizziness or lightheadedness. Denies headache. Denies weakness or paralysis or loss of use of either side. Denies problems with gait or speech. Denies sensory loss, numbness, or tingling. Denies seizures. PSYCHIATRIC: Admits to anxiety stress ALL OTHER SYSTEMS REVIEWED AND NEGATIVE. PHYSICAL EXAMINATION: GENERAL: Well-appearing, well-nourished and in no acute distress. pt appears anxious HEAD: Atraumatic, normocephalic. EYES: Pupils equal round and reactive to light, extraocular movements intact, conjunctiva are normal. ENT: Nares patent, oropharynx clear without exudates. Moist mucous membranes. NECK: Normal range of motion, supple without lymphadenopathy LUNGS: Breath sounds clear to auscultation bilaterally and equal. No wheezes rales or rhonchi. HEART: Regular rate and rhythm without murmurs ABDOMEN: Soft, nontender, nondistended abdomen. No guarding, no rebound. No masses appreciated. Female : deferred Musculoskeletal: Normal range of motion, no pitting or edema. No cyanosis. NEUROLOGICAL: Cranial nerves grossly intact. Normal speech, normal gait. Normal sensory, motor exams PSYCH: anxious SKIN: Warm, Dry, normal turgor, no rashes or lesions noted. Dictation was performed using [employer] voice recognition software Physical Exam - Vital signs Vitals: Temp Pulse Resp BP Pulse Ox 98.2 F 104 H 16 188/102 H 100 02/07/18 12:02 02/07/18 12:02 02/07/18 12:02 02/07/18 12:02 02/07/18 12:02 Course - Re-evaluation Re-evalutation: 02/07/18 14:33 I do not believe patient has a harm to herself or others, she is not suicidal, this is her usual state patient, she is drug-seeking, multiple attempts were made to get blood from her and I believe that she is medically clear from my physical examination and does not require to be sent to a care facility or any psychiatric rehab I spoke with mental health they agree with this assessment and will assist with discharge After performing a Medical Screening Examination, I estimate there is LOW risk for any life threatening mental health issues. At this time the patient looks extremely well and has not attempted severe self harm. I have reevaluated this patient multiple times and no significant life threatening changes are noted. The patient and I have discussed the diagnosis and risks, and we agree with discharging home with close follow-up with the understanding that symptoms and presentations can change. We also discussed returning to the Emergency Department immediately if new or worsening symptoms occur. We have discussed the symptoms which are most concerning (hallucinations, thoughts or actions of self harm or harm to others) that necessitate immediate return. - Vital Signs Vital signs: Temp Pulse Resp BP Pulse Ox 98.2 F 104 H 16 188/102 H 100 02/07/18 12:02 02/07/18 12:02 02/07/18 12:02 02/07/18 12:02 02/07/18 12:02 Discharge - Discharge Clinical Impression: Panic attack Condition: Stable Disposition: HOME, SELF-CARE Instructions: Anxiety ([facility]) Additional Instructions: Follow up with your physician tomorrow for further care or return to the ED IMMEDIATELY if symptoms worsen or new concerns occur. If you cannot afford to follow up with your primary care physician a list of low cost clinics have been provided at the end of your discharge papers as well.
--- NOTE | 2018-02-11 13:18 | PSYCHOLOGICAL NOTE ---
Psych Note - Psych Note Psych Note: Spoke with Patient after she was IVC by her Provider again, following rescinsion of IVC by the Provider and the ED Physician on two previous occasion within the 12 hours. Patient stated, " I just want to go to an institution. I am lonely. I need to go so I am not alone." When advised this wa snot the purpose of inpatient psychiatric hospitalization, Patient reported her physician , Dr. Lee told her she needed to go. I asked her if she told her provider she was suicidal, and she stated she had. When I asked if she told her provider the same thing she has just told me, that she was lonely and that was the real reason for wanting to admit to hospital, she stated, "noooo, then he wouldn't commit me." At this point, I advised the Patient she needed to stop engaging in the manipulative behaviors, and that she was going to be rescinded again, and her physician advised of her ongoing ploy to go to an inpatient facility. She was also advised that should she continue to inappropriately utilize emergency services, legal charges could be pursued, resulting in her gong to intermediate. Patient's Provider practice was contacted eat each visit and advised the Patient was suicidal, rather making manipulative attempts to go inpatient. Stefanie Edgar, nurse for the Provider stated the Patient refused to "contract for safety" while at the provider office. Stefanie Edgar was again advised the patient was making statements in an attempt to "be committed," per Patient, and this was not appropriate, and as such, she was going to be rescinded. The Provider was requested to have a conversation with the Patient and if needed and necessary adjust medications, but inpatient hospitalization was felt to not be appropriate given the level of manipulation the Patient was engaging in, and historically engaged in. Patient was alert and oriented to person, place, time, and circumstance. Mood was labile and manipulative while affect was expressive, at times crying, while other times angry. She denied suicidal / homicidal ideation, intent or plan. She denied auditory / visual hallucinations and delusional thought processes were absent. She was able to follow commands without difficulty. Conversational speech was within normal limits for rate, but tone was loud and prosody was impacted by poor dentation. Reciprocity of speech was within normal limits. Intellectual abilities was estimated within normal limits. Attention and concentration was variable as evidenced by her yelling out when she was told she was not going inpatient or when she didn't hear what she wanted. Insight, judgment, and impulse control was / is historically impaired, often by choice. Diagnoses: 1. Borderline Personality Disorder 2. Histrionic Personality Disorder Impression / Plan: Patient is psychiatrically clear for discharge once again. Patient has secondary gain to obtain inpatient psychiatric hospitalization. Each time she presents to this ED, she denies suicidal/ homicidal ideation, intent or plan, and denies psychosis and there is no evidence of such, yet, when she is discharged, she finds her way back to her Provider where she tells them she is suicidal with intent to "stab my wrist." When confronted about this behavior she reports she has to say these things in order for her provider to "commit me." Despite advising the Provider of this information, the Provider continues to place the Patient under IVC, within 30-60 minutes and returning her to the ED for Placement. Patient reported she has a cell phone and was able to contact someone for a ride each time she is discharged, and finds a ride back to her provider, even though she initially reports she does not have a ride , any friends or family, or any money. She is resistant to mobile crisis or ant other intervention efforts for outpatient care. At this time, Patient is clear for discharge. ED Physician in agreement with recommendation and disposition. Of note, before this note could be completed, I was advised the Patient was placed back on IVC for the 4th time by her provider (within 30 minutes of this discharge) for suicidal ideation and was returning to the ED. Multiple attempts were made to contact her Provider, but there was no answer and they did not return the messages that were left. As such, Patient was once again psychiatrically cleared and discharged, with instructions for mobile crisis, follow up with her provider. Ed Physician in agreement with recommendation and disposition.
== END 2018-02-07 14:35 | disposition home or self-care (01) ==
LOC: ER 11:39
DX: F41.0 Panic disorder [episodic paroxysmal anxiety] (principal); F17.210 Nicotine dependence, cigarettes, uncomplicated; I10 Essential (primary) hypertension; Z98.51 Tubal ligation status
CPT/HCPCS: 99284

== ENCOUNTER 2018-02-07 17:34 | Emergency (ER) | payer MEDICARE, MEDICAID ==
--- NOTE | 2018-02-07 17:44 | ER Document Report ---
ED General - General Stated Complaint: IVC Time Seen by Provider: 02/07/18 17:40 Mode of Arrival: Wheelchair Information source: Patient, Law Enforcement Notes: 58-year-old female history of panic attacks and drug-seeking behavior presents for the second time today. pt is sent in from [facility] for second evaluation TRAVEL OUTSIDE OF THE U.S. IN LAST 30 DAYS: No - HPI Onset: Just prior to arrival Onset/Duration: Sudden Quality of pain: No pain Severity: Mild Pain Level: Denies Associated symptoms: Other Exacerbated by: Denies Relieved by: Denies Similar symptoms previously: Yes Recently seen / treated by doctor: Yes - Related Data Allergies/Adverse Reactions: Soap [From Betadine] Allergy (Intermediate, Verified 09/15/17 07:42) RASH povidone-iodine [From Betadine] Allergy (Verified 09/15/17 07:42) RASH Past Medical History - Social History Smoking Status: Never Smoker Cigarette use (# per day): No Chew tobacco use (# tins/day): No Smoking Education Provided: No Family History: Reviewed & Not Pertinent - Past Medical History Cardiac Medical History: Reports: Hx Hypertension Renal/ Medical History: Denies: Hx Peritoneal Dialysis Psychiatric Medical History: Reports: Hx Anxiety, Hx Bipolar Disorder, Hx Depression Past Surgical History: Reports: Hx Orthopedic Surgery - R arm, R ankle, Hx Tonsillectomy, Hx Tubal Ligation - Immunizations Hx Diphtheria, Pertussis, Tetanus Vaccination: Yes Review of Systems - Review of Systems Notes: REVIEW OF SYSTEMS: CONSTITUTIONAL : Denies fever, chills, or sweats. Denies recent illness. EENT: Denies eye, ear, throat, or mouth pain or symptoms. Denies nasal or sinus congestion or discharge. Denies throat, tongue, or mouth swelling or difficulty swallowing. CARDIOVASCULAR: Denies chest pain. Denies palpitations or racing or irregular heart beat. Denies ankle edema. RESPIRATORY: Denies cough, cold, or chest congestion. Denies shortness of breath, difficulty breathing, or wheezing. GASTROINTESTINAL: Denies abdominal pain or distention. Denies nausea, vomiting , or diarrhea. Denies blood in vomitus, stools, or per rectum. Denies black, tarry stools. Denies constipation. GENITOURINARY: Denies difficulty urinating, painful urination, burning, frequency, blood in urine, or discharge. FEMALE GENITOURINARY: Denies vaginal bleeding, heavy or abnormal periods, irregular periods. Denies vaginal discharge or odor. MUSCULOSKELETAL: Denies back or neck pain or stiffness. Denies joint pain or swelling. SKIN: Denies rash, lesions or sores. HEMATOLOGIC : Denies easy bruising or bleeding. LYMPHATIC: Denies swollen, enlarged glands. NEUROLOGICAL: Denies confusion or altered mental status. Denies passing out or loss of consciousness. Denies dizziness or lightheadedness. Denies headache. Denies weakness or paralysis or loss of use of either side. Denies problems with gait or speech. Denies sensory loss, numbness, or tingling. Denies seizures. PSYCHIATRIC: Admits to anxiety ALL OTHER SYSTEMS REVIEWED AND NEGATIVE. PHYSICAL EXAMINATION: GENERAL: Well-appearing, well-nourished and in no acute distress. HEAD: Atraumatic, normocephalic. EYES: Pupils equal round and reactive to light, extraocular movements intact, conjunctiva are normal. ENT: Nares patent, oropharynx clear without exudates. Moist mucous membranes. NECK: Normal range of motion, supple without lymphadenopathy LUNGS: Breath sounds clear to auscultation bilaterally and equal. No wheezes rales or rhonchi. HEART: Regular rate and rhythm without murmurs ABDOMEN: Soft, nontender, nondistended abdomen. No guarding, no rebound. No masses appreciated. Female : deferred Musculoskeletal: Normal range of motion, no pitting or edema. No cyanosis. NEUROLOGICAL: Cranial nerves grossly intact. Normal speech, normal gait. Normal sensory, motor exams PSYCH: Patient is anxious screaming at her baseline SKIN: Warm, Dry, normal turgor, no rashes or lesions noted. Dictation was performed using [employer] voice recognition software Course - Re-evaluation Re-evalutation: 02/07/18 17:42 Patient's mother presents stating that she does this quite often and that it is time for her to go home, she will take responsibility for the patient, I believe this is appropriate IVC paperwork has been rescinded patient does not require any in patient care After performing a Medical Screening Examination, I estimate there is LOW risk for any life threatening mental health issues. At this time the patient looks extremely well and has not attempted severe self harm. I have reevaluated this patient multiple times and no significant life threatening changes are noted. The patient and I have discussed the diagnosis and risks, and we agree with discharging home with close follow-up with the understanding that symptoms and presentations can change. We also discussed returning to the Emergency Department immediately if new or worsening symptoms occur. We have discussed the symptoms which are most concerning (hallucinations, thoughts or actions of self harm or harm to others) that necessitate immediate return. Discharge - Discharge Clinical Impression: Panic attack Condition: Stable Disposition: HOME, SELF-CARE Additional Instructions: Please return if there are any other concerns, you will be discharged home please follow-up with the care provider or return immediately if there are any other concerns
== END 2018-02-07 17:50 | disposition home or self-care (01) ==
LOC: ER 17:34
DX: F41.0 Panic disorder [episodic paroxysmal anxiety] (principal); Z76.5 Malingerer [conscious simulation]; Z98.51 Tubal ligation status; I10 Essential (primary) hypertension
CPT/HCPCS: 99283

== ENCOUNTER 2018-03-21 08:38 | Emergency (ER) | payer MEDICARE, MEDICAID ==
--- NOTE | 2018-03-21 09:26 | ER Document Report ---
ED General - General Chief Complaint: Anxiety Stated Complaint: ANXIETY Time Seen by Provider: 03/21/18 09:20 TRAVEL OUTSIDE OF THE [place] IN LAST 30 DAYS: No - HPI Patient complains to provider of: Anxiety Notes: Patient is very well-known to this department for multiple visits for anxiety patient also does have a history of substance abuse and abusing emergency services. Upon my initial evaluation patient is seen sleeping resting calmly in her room. Patient did receive 2 mg of Versed IM by EMS. I did come back and later evaluated patient patient was back to her baseline status crying moaning swelling around the bed and yelling at staff. Patient states that she is out of her medications. Patient otherwise states that her physician will not see her anymore and has fired from her practice states that she has to see physicians down in [place]. Patient states she does not have transportation to go to [place] to see her doctors. Otherwise patient looks to be her baseline. - Related Data Allergies/Adverse Reactions: Soap [From Betadine] Allergy (Intermediate, Verified 03/21/18 08:49) RASH povidone-iodine [From Betadine] Allergy (Verified 03/21/18 08:49) RASH Past Medical History - Social History Smoking Status: Unknown if Ever Smoked Family History: Reviewed & Not Pertinent Patient has suicidal ideation: No Patient has homicidal ideation: No - Past Medical History Cardiac Medical History: Reports: Hx Hypertension Renal/ Medical History: Denies: Hx Peritoneal Dialysis Psychiatric Medical History: Reports: Hx Anxiety, Hx Bipolar Disorder, Hx Depression Past Surgical History: Reports: Hx Orthopedic Surgery - R arm, R ankle, Hx Tonsillectomy, Hx Tubal Ligation - Immunizations Hx Diphtheria, Pertussis, Tetanus Vaccination: Yes Review of Systems - Review of Systems Constitutional: No symptoms reported EENT: No symptoms reported Cardiovascular: No symptoms reported Respiratory: No symptoms reported Gastrointestinal: No symptoms reported Genitourinary: No symptoms reported Female Genitourinary: No symptoms reported Musculoskeletal: No symptoms reported Skin: No symptoms reported Hematologic/Lymphatic: No symptoms reported Neurological/Psychological: Anxiety -: Yes All other systems reviewed and negative Physical Exam - Vital signs Vitals: Temp Pulse Resp BP Pulse Ox 98.1 F 80 20 151/88 H 100 03/21/18 10:03/21/18 10:03/21/18 10:03/21/18 10:03/21/18 10:09 Interpretation: Normal - General General appearance: Appears well, Alert - HEENT Head: Normocephalic, Atraumatic Eyes: Normal Pupils: PERRL - Respiratory Respiratory status: No respiratory distress Chest status: Nontender Breath sounds: Normal Chest palpation: Normal - Cardiovascular Rhythm: Regular Heart sounds: Normal auscultation Murmur: No - Abdominal Inspection: Normal Distension: No distension Bowel sounds: Normal Tenderness: Nontender Organomegaly: No organomegaly - Back Back: Normal, Nontender - Extremities General upper extremity: Normal inspection, Nontender, Normal color, Normal ROM , Normal temperature General lower extremity: Normal inspection, Nontender, Normal color, Normal ROM , Normal temperature, Normal weight bearing. No: Alexandrea's sign - Neurological Neuro grossly intact: Yes Cognition: Normal Orientation: AAOx4 Liz Coma Scale Eye Opening: Spontaneous Renner Coma Scale Verbal: Oriented Renner Coma Scale Motor: Obeys Commands Liz Coma Scale Total: 15 Speech: Normal Motor strength normal: LUE, RUE, LLE, RLE Sensory: Normal - Psychological Associated symptoms: Agitated, Anxious - Skin Skin Temperature: Warm Skin Moisture: Dry Skin Color: Normal Course - Re-evaluation Re-evalutation: 03/21/18 18:21 Patient is at her baseline. Patient is requesting an IM shot. Explained to patient that we will give her a shot of Vistaril. Splinted patient that her database shows that she recently filled her Ativan that she takes daily on February 22. This was a 30 day supply explained to patient I would not give her any other benzodiazepines or narcotics. Explained patient she continue with Vistaril as outpatient patient was discharged out of the ER. - Vital Signs Vital signs: Temp Pulse Resp BP Pulse Ox 98.1 F 80 20 151/88 H 100 03/21/18 10:03/21/18 10:03/21/18 10:03/21/18 10:03/21/18 10:09 Discharge - Discharge Clinical Impression: Panic attack, Drug-seeking behavior Condition: Good Disposition: HOME, SELF-CARE Instructions: Anxiety ([facility]) Additional Instructions: It is important she continue to follow-up with your physicians to continue your medications. Return to the ER for any concerns. Our records show that she feels your Ativan on February 22 for a month supply meaning that she should still have Ativan left. It is your responsibility to follow-up with your physician
[2018-03-21] MEDS ORDERED: HYDROXYZINE HCL INJ 50 MG/1 ML VIAL IM ONE (09:49)
--- NOTE | 2018-03-21 10:10 | PSYCHOLOGICAL NOTE ---
Psych Note - Psych Note Psych Note: Reason for consult: anxiety Consent permissions: second cousin at bedside per patient's request Pt to [facility] for reported anxiety attack, EMS states pt has been out of ativan x 3 days. EMS reported giving versed 2mg IM en route. On arrival pt is calm, quiet and cooperative, and when placed on bed pt curled up and resting with eyes closed. patient is observed laying on the stretcher and has begun shoving the blanket in her mouth and making a rhythmic moaning yell. Clinician notes this is baseline for the patient. Patient disclosed that she was recently released from inpatient psychiatric care and when she went up to see Dr. Lin he was informed she was no longer going to be seen by them. She states that she has to reestablish a new provider in [place] and has her psychiatric medications except for Ativan which she reports she has run out of and needs to refill it. Patient continued to state that she needs a shot to help her. Clinician asked the patient why she was out of her medications since she received a 30 day supply on 02/22/2018 and reports being in patient psychiatric treatment for 7 days within that timeframe. Patient states that she had to take medication before bed because she was afraid she would wake up with a panic attack. Patient reports that she has been having a panic attack for the last 4 days and cannot get to her new provider until Sunday. Patient again disclose she need a shot of medication at which point clinician reminded her she received Versed with EMS. Patient states it did not work because she still having a panic attack at which point clinician pointed out the patient did get some sleep and at this time the patient's presentation is behavioral not a panic attack; patient stated "no baby, this is a panic attack." Patient is alert and orientated to person, place, time and circumstance. Mood is baseline for this patient. Patient denies suicidal homicidal ideation delusions are absent behaviors congruent with intact reality based presentation i.e. organized and linear thought processes. Conversational speech is baseline for when she presents at [facility] i.e. intermittent with muffled rhythmic moaning and yelling. Eye contact was fair. Intellectual abilities appear to be within the average range. Attention and concentration are fair. Insight, judgment, impulse control are historically poor due to Ativan abuse. 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 Patient is presenting at her typical baseline while visiting [facility]. This patient is well-known to this clinician and emergency department. Patient received 30 day prescription of Ativan on 02/22/2018 per [place] substance reporting system. Patient discloses going inpatient for 7 days within the last month at which point patient should have at least 10 days left of her medication if she was taking as prescribed. Patient reports she has been out of her medications for 4 days. Patient disclosed that [facility] will no longer provide services for her and she is currently waiting for her new provider down in [place]; her first appointment is Sunday03/25/2018. Dr. Trinidad was consulted and the care and management of this patient; attending physician is agreement with her conditions and disposition.
[2018-03-21 10:11] VITALS: BP 151/88
== END 2018-03-21 10:11 | disposition home or self-care (01) ==
LOC: ER 08:38
DX: F41.0 Panic disorder [episodic paroxysmal anxiety] (principal); Z76.5 Malingerer [conscious simulation]; I10 Essential (primary) hypertension; Z98.51 Tubal ligation status; F13.99 Sedative, hypnotic or anxiolytic use, unspecified with unspecified sedative, hypnotic or anxiolytic-induced disorder
CPT/HCPCS: 99284; 96372; J3490

== ENCOUNTER 2018-03-28 13:12 | Emergency (ER) | payer MEDICARE, MEDICAID ==
--- NOTE | 2018-03-28 14:07 | ER Document Report ---
ED General - General TRAVEL OUTSIDE OF THE [place] IN LAST 30 DAYS: No - HPI Patient complains to provider of: Psychiatric evaluation - General Chief Complaint: Psych Problem Stated Complaint: IVC WITH PAPERS Time Seen by Provider: 03/28/18 14:06 - HPI Notes: Patient was being evaluated today at [facility] she became loud and boisterous patient going to the IVC paperwork was making threats to harm her self and others therefore was placed on IVC paperwork and sent to the ER for further evaluation. Patient is very well-known to this department and to myself. Patient today is very calm cooperative very congruent this is actually the best and the comments have seen the patient thought process is very linear upon talking to her she is very well dressed sitting comfortably on stretcher. Patient has no complaints upon my evaluation. Denies any fevers chills nausea vomiting diarrhea. (KIMBERLY WELLS) - Related Data Allergies/Adverse Reactions: Soap [From Betadine] Allergy (Intermediate, Verified 03/21/18 08:49) RASH povidone-iodine [From Betadine] Allergy (Verified 03/21/18 08:49) RASH Past Medical History - Social History Smoking Status: Current Every Day Smoker Chew tobacco use (# tins/day): No Frequency of alcohol use: None Drug Abuse: None Family History: Reviewed & Not Pertinent Patient has suicidal ideation: No Patient has homicidal ideation: No - Past Medical History Cardiac Medical History: Reports: Hx Hypertension Renal/ Medical History: Denies: Hx Peritoneal Dialysis Psychiatric Medical History: Reports: Hx Anxiety, Hx Bipolar Disorder, Hx Depression Past Surgical History: Reports: Hx Orthopedic Surgery - R arm, R ankle, Hx Tonsillectomy, Hx Tubal Ligation - Immunizations Hx Diphtheria, Pertussis, Tetanus Vaccination: Yes Review of Systems - Review of Systems Constitutional: Other - Psychiatric evaluation EENT: No symptoms reported Cardiovascular: No symptoms reported Respiratory: No symptoms reported Gastrointestinal: No symptoms reported Genitourinary: No symptoms reported Female Genitourinary: No symptoms reported Musculoskeletal: No symptoms reported Skin: No symptoms reported Hematologic/Lymphatic: No symptoms reported Neurological/Psychological: No symptoms reported Physical Exam - Vital signs Interpretation: Normal - General General appearance: Appears well, Alert - HEENT Head: Normocephalic, Atraumatic Eyes: Normal Pupils: PERRL - Respiratory Respiratory status: No respiratory distress Chest status: Nontender Breath sounds: Normal Chest palpation: Normal - Cardiovascular Rhythm: Regular Heart sounds: Normal auscultation Murmur: No - Abdominal Inspection: Normal Distension: No distension Bowel sounds: Normal Tenderness: Nontender Organomegaly: No organomegaly - Back Back: Normal, Nontender - Extremities General upper extremity: Normal inspection, Nontender, Normal color, Normal ROM , Normal temperature General lower extremity: Normal inspection, Nontender, Normal color, Normal ROM , Normal temperature, Normal weight bearing. No: Alexandrea's sign - Neurological Neuro grossly intact: Yes Cognition: Normal Orientation: AAOx4 Liz Coma Scale Eye Opening: Spontaneous [place] Coma Scale Verbal: Oriented Liz Coma Scale Motor: Obeys Commands [place] Coma Scale Total: 15 Speech: Normal Motor strength normal: LUE, RUE, LLE, RLE Sensory: Normal - Psychological Associated symptoms: Normal affect, Normal mood - Skin Skin Temperature: Warm Skin Moisture: Dry Skin Color: Normal Course - Re-evaluation Re-evalutation: 03/28/18 14:26 Patient coming in for evaluation patient was placed on IVC paperwork. Patient is very well-known to this department and to this provider. Patient today does not express any thoughts to harm herself or harm anybody else. Most time patient presentation involved screaming lying on the floor biting her pillow becoming a disturbance to the department. Patient today resting very comfortably making no threats answering all questions with good linear thought seemed to have good insight today. Patient is very pleasant upon my evaluation. Patient was evaluated by our psychiatric team recommends recent IVC. I agree with this at this time. Patient will be discharged from the ER to follow-up with her mental health providers (KIMBERLY WELLS) Discharge - Discharge Clinical Impression: Borderline personality disorder, Suicidal ideation, Anxiety Condition: Stable Disposition: HOME, SELF-CARE Additional Instructions: Anxiety The physician feels that some of your health problems are being caused by anxiety. Anxiety affects your health in many ways. Anxiety alone can cause palpitations, sweats, chest pains, abdominal pains, shortness of breath, and headaches. It contributes to ulcer disease, high blood pressure, irritable bowel syndrome, and has been shown to cause flare-ups of many other diseases. Anxiety is not a simple disorder to treat. If the anxiety is due to recent life stresses, you may simply need time to "work through" the changes. If the anxiety is due to an underlying unhappiness with yourself or due to psychiatric disturbance, professional help will be needed. Your physician can refer you for further help if needed. Anti-anxiety medication is occasionally given if the stress is acute or if you are having trouble sleeping. Chronic or frequent use of these medications is not a good idea because the body becomes reliant on it, preventing you from dealing with life's normal stresses. SUICIDAL IDEATION: Suicidal ideation is a common medical term for thoughts about suicide, which may be as detailed as a formulated plan, without the suicidal act itself. Although most people who undergo suicidal ideation do not commit suicide, some go on to make suicide attempts. The range of suicidal ideation varies greatly from fleeting to detailed planning, role playing, and unsuccessful attempts. While thoughts about suicide are common, most people do not carry out serious actions to commit suicide. Based upon your evaluation and discussion with you, we do not believe you are currently at risk to act upon your thoughts of suicide. You have agreed to return to the Emergency Department, at any time , if you feel inclined to act upon your suicidal thoughts. FOLLOW-UP CARE: You should follow up with [facility] as a walk in tomorrow morning (). If you experience worsening or a significant change in your symptoms, notify the physician immediately, utilize mobile crisis or return to the Emergency Department at any time for re-evaluation. Referrals: [facility] [Outside] - 03/29/18
--- NOTE | 2018-03-28 19:49 | PSYCHOLOGICAL NOTE ---
Psych Note - Psych Note Psych Note: Reason for consult: IVC from [facility] for verbal aggression, hallucinationn, SI Contact Permission: None during this visit Patient is a 58 year old female who presented to the ED today via [facility] petitioned for IVC via provider at [facility] for verbal aggression, hallucinations and SI. Patient reported she is in the ED today because [facility] sent her here. She said she told the doctor she was suicidal and he told her to go to the [facility] and wait her turn. She commented "I just told him I was suicidal and he sent me to the [facility] what if I would have tried to kill myself. " She stated she hears voices saying to hurt herself "but I don't want to." She denied hearing voices during the evaluation. She said stress lately had been "she has had to go to 3 funerals over the past 2 months and a cousin had been staying with her the last week but went back to a no good boy." She acknowledged this has "done something to her nerves and she has woke up having a panic attack almost everyday." She identified a previous outpatient provider was [facility], she had been to [facility] in the past and today was her first appointment to re-establish services with [facility]. She stated her prescribed medications include Seroquel and Lorazepam but the Lorazepam isn't helping her anxiety. She denied current SI/HI and made no comments or statements regarding either. Patient was alert and oriented to person, place and situation. Mood was euthymic with congruent affect. She denied current SI/HI, commented how she at times hears voices that tell her to hurt self but she doesn't want to and denied these voices during evaluation. She did not appear to be responding to internal stimuli as evidenced by appropriate phone conversation she had with congregation friend on the phone when this clinician first entered room for evaluation , her fair eye contact, staying on topic, answering questions appropriately when addressed and ability to have dialogue conversation. Thought processes were linear and goal oriented. Conversational speech was within normal limits for rate, tone and prosody. Intellectual abilities are estimated to be average. Insight, judgment and impulse control are fair as evidenced by her knowledge that if she says SI people usually respond (she told [facility] provider she was suicidal and he said [facility] and she was baffled by that). Patient was well groomed and easily redirected which is not how she is (well known to this ED and this clinician) when not at baseline. Note patient was seen by [facility] on 03/21/18 and there were concerns she was benzodiazepine (Ativan) med seeking (has a history of misuse). 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 Recommendation to rescind IVC which stated patient was aggressive and SI. Patient stated she had heard voices telling her to hurt self but she didn't want to. She denied hearing voices during evaluation. She was calm and cooperative. She had fair eye contact, stayed on topic, answered questions appropriately when addressed and was able to carry on dialogue conversation which suggested she was not responding to internal stimuli/voices or it was not significant enough that it was impeding/impairing ability to engage and interact. She noted an increase in stress and anxiety surrounding 3 deaths in the family and a cousin who had stayed with her the last week but went back to a bad relationship. Patient was well kept appearance kowalski (clothes and hair looked nice, jewelry on) which is different from previous visits when she was unstable. Presentation was the best this clinician has seen with patient who is well known to this clinician and the ED. Patient instructed to walk in to [facility] tomorrow (03/29/18) for appointment that she missed today due to them petitioning for IVC for information that was not consistent with presentation at the ED. Consulted with Dr. Trinidad regarding the management and care of patient.
== END 2018-03-28 14:32 | disposition home or self-care (01) ==
LOC: ER 13:12
DX: F60.3 Borderline personality disorder (principal); R45.851 Suicidal ideations; F41.9 Anxiety disorder, unspecified; F17.200 Nicotine dependence, unspecified, uncomplicated; F60.4 Histrionic personality disorder
CPT/HCPCS: 36415; 99284

== ENCOUNTER 2018-03-29 19:16 | Emergency (ER) | payer MEDICARE, MEDICAID ==
[2018-03-29 19:34] VITALS: BP 145/77
[2018-03-29] MEDS ORDERED: HYDROXYZINE HCL INJ 50 MG/1 ML VIAL IM ONE (19:38)
--- NOTE | 2018-03-29 19:41 | ER Document Report ---
ED Psych Disorder / Suicide - General Chief Complaint: Psych Problem Stated Complaint: psych Time Seen by Provider: 03/29/18 19:27 Notes: Patient is a 58-year-old female that comes emergency department by EMS for chief complaint of panic attack and anxiety. She states that she had a panic attack this morning as well and took her Seroquel and Ativan, however she states that this evening she had another panic attack and her friend called the ambulance. She states she sometimes gets suicidal thoughts and she is having them "because of the panic attack", denies homicidal ideations, states that "if the panic attack would stop" then she would "not be suicidal". She denies any fever or chills, injury, denies other complaints. TRAVEL OUTSIDE OF THE [place] IN LAST 30 DAYS: No - Related Data Allergies/Adverse Reactions: Soap [From Betadine] Allergy (Intermediate, Verified 03/29/18 19:34) RASH povidone-iodine [From Betadine] Allergy (Verified 03/29/18 19:34) RASH Past Medical History - General Information source: Patient - Social History Smoking Status: Unknown if Ever Smoked Frequency of alcohol use: None Drug Abuse: None Lives with: Alone Family History: Reviewed & Not Pertinent Patient has suicidal ideation: Yes Patient has homicidal ideation: No - Past Medical History Cardiac Medical History: Reports: Hx Hypertension Renal/ Medical History: Denies: Hx Peritoneal Dialysis Psychiatric Medical History: Reports: Hx Anxiety, Hx Bipolar Disorder, Hx Depression Past Surgical History: Reports: Hx Orthopedic Surgery - R arm, R ankle, Hx Tonsillectomy, Hx Tubal Ligation - Immunizations Hx Diphtheria, Pertussis, Tetanus Vaccination: Yes Review of Systems - Review of Systems Constitutional: No symptoms reported EENT: No symptoms reported Cardiovascular: No symptoms reported Respiratory: No symptoms reported Gastrointestinal: No symptoms reported Genitourinary: No symptoms reported Female Genitourinary: No symptoms reported Musculoskeletal: No symptoms reported Skin: No symptoms reported Hematologic/Lymphatic: No symptoms reported Neurological/Psychological: See HPI Physical Exam - Vital signs Vitals: Temp Pulse Resp BP Pulse Ox 98.1 F 89 18 145/77 H 97 03/29/18 19:28 03/29/18 19:28 03/29/18 19:28 03/29/18 19:28 03/29/18 19:28 Interpretation: Normal - General General appearance: Alert In distress: None - HEENT Head: Normocephalic, Atraumatic Eyes: Normal Pupils: PERRL - Respiratory Respiratory status: No respiratory distress Chest status: Nontender Breath sounds: Normal. No: Decreased air movement, Wheezing Chest palpation: Normal - Cardiovascular Rhythm: Regular. No: Tachycardia Heart sounds: Normal auscultation, S1 appreciated, S2 appreciated Murmur: No - Abdominal Inspection: Normal Distension: No distension Bowel sounds: Normal Tenderness: Nontender. No: Tender, Guarding Organomegaly: No organomegaly - Back Back: Normal, Nontender. No: Tender - Extremities General upper extremity: Normal inspection, Nontender, Normal strength, Normal temperature General lower extremity: Normal inspection, Nontender, Normal strength, Normal temperature - Neurological Neuro grossly intact: Yes Cognition: Normal Orientation: AAOx4 [place] Coma Scale Eye Opening: Spontaneous [place] Coma Scale Verbal: Oriented [place] Coma Scale Motor: Obeys Commands Liz Coma Scale Total: 15 Speech: Normal Cranial nerves: Normal Cerebellar coordination: Normal Motor strength normal: LUE, RUE, LLE, RLE Additional motor exam normals: Equal hammerer helper Sensory: Normal - Psychological Associated symptoms: Other - becomes anxious and almost tearful when discussing symptoms, otherwise she is calm. She answers questions appropriately. Not responding to internal stimuli. - Skin Skin Temperature: Warm Skin Moisture: Dry Skin Color: Normal Course - Re-evaluation Re-evalutation: Patient quiet in the room, when she speaks to me she talks anxiously and states she has been dealing with the of her cousin and she gets frequent panic attacks, she states she just wants the panic attack to pass. She does not appear to be in distress, she has no tachycardia. Physical exam is unremarkable. Patient is well-known to this department and presents frequently with similar complaints. Discussed with patient, she will be given IM Vistaril for her panic attack symptoms reported. Reevaluated patient. She is sleeping comfortably, easily aroused. Anxiety/ panic resolved, patient only reporting suicidal ideations when having a panic attack. I discussed anxiety, she does not appear to be having a panic attack at this time, she does have medications for panic attack if needed at home, she is to stay on her current medications and follow-up with [facility]. Discussed with Dr. Malagon. Patient began screaming and yelling in the room, rolling around on the floor, she has done this many times in the past, initially she was asked to stop, she requests Ativan for panic attacks along with benadryl. Patient was again asked by me to be calm and discuss quietly, patient began yelling at me, patient began yelling at staff, she began yelling that she was going to call the police , security was called to escort patient from the premises. - Vital Signs Vital signs: Temp Pulse Resp BP Pulse Ox 98.1 F 80 18 145/77 H 97 03/29/18 19:28 03/29/18 19:34 03/29/18 19:28 03/29/18 19:28 03/29/18 19:28 Discharge - Discharge Clinical Impression: Anxiety Condition: Stable Disposition: HOME, SELF-CARE Additional Instructions: Follow up with [facility] on Sunday. Take your current medications. Return to the ED for any concerning symptoms or if something is not right. Anxiety The physician feels that some of your health problems are being caused by anxiety. Anxiety affects your health in many ways. Anxiety alone can cause palpitations, sweats, chest pains, abdominal pains, shortness of breath, and headaches. It contributes to ulcer disease, high blood pressure, irritable bowel syndrome, and has been shown to cause flare-ups of many other diseases. Anxiety is not a simple disorder to treat. If the anxiety is due to recent life stresses, you may simply need time to "work through" the changes. If the anxiety is due to an underlying unhappiness with yourself or due to psychiatric disturbance, professional help will be needed. Your physician can refer you for further help if needed. Anti-anxiety medication is occasionally given if the stress is acute or if you are having trouble sleeping. Chronic or frequent use of these medications is not a good idea because the body becomes reliant on it, preventing you from dealing with life's normal stresses.
== END 2018-03-29 20:43 | disposition home or self-care (01) ==
LOC: ER 19:16
DX: F41.9 Anxiety disorder, unspecified (principal); F41.0 Panic disorder [episodic paroxysmal anxiety]; F31.9 Bipolar disorder, unspecified; Z79.899 Other long term (current) drug therapy; Z88.3 Allergy status to other anti-infective agents; R45.851 Suicidal ideations
CPT/HCPCS: 99284; 96372; J3490

== ENCOUNTER 2018-04-05 13:57 | Emergency (ER) | payer MEDICARE, MEDICAID ==
--- NOTE | 2018-04-05 14:18 | ER Document Report ---
ED Psych Disorder / Suicide - General Mode of Arrival: Ambulatory Information source: Patient TRAVEL OUTSIDE OF THE [place] IN LAST 30 DAYS: No - General Chief Complaint: Psych Problem Stated Complaint: SUICIDAL IDEATION Time Seen by Provider: 04/05/18 14:16 Notes: Patient is a 58-year-old female who is well-known to the emergency department for frequent visits with presentations similar to her visit today. Patient is tearful, crying in the room stating her anxiety is causing her to be unable to sleep. Patient states she is currently having a panic attack but has been taking her xanax, ativan, and seroquel as prescribed. (BONIFACIO KAHN) - Related Data Allergies/Adverse Reactions: Soap [From Betadine] Allergy (Intermediate, Verified 04/05/18 14:07) RASH povidone-iodine [From Betadine] Allergy (Verified 04/05/18 14:07) RASH Past Medical History - General Information source: Patient - Social History Smoking Status: Current Every Day Smoker Cigarette use (# per day): Yes Frequency of alcohol use: None Drug Abuse: None Lives with: Family Family History: Reviewed & Not Pertinent - Past Medical History Cardiac Medical History: Reports: Hx Hypertension Renal/ Medical History: Denies: Hx Peritoneal Dialysis Psychiatric Medical History: Reports: Hx Anxiety, Hx Bipolar Disorder, Hx Depression Past Surgical History: Reports: Hx Orthopedic Surgery - R arm, R ankle, Hx Tonsillectomy, Hx Tubal Ligation - Immunizations Hx Diphtheria, Pertussis, Tetanus Vaccination: Yes Review of Systems - Review of Systems Constitutional: No symptoms reported EENT: No symptoms reported Cardiovascular: No symptoms reported Respiratory: No symptoms reported Gastrointestinal: No symptoms reported Genitourinary: No symptoms reported Female Genitourinary: No symptoms reported Musculoskeletal: No symptoms reported Skin: No symptoms reported Hematologic/Lymphatic: No symptoms reported Neurological/Psychological: See HPI, Other - panic attack -: Yes All other systems reviewed and negative Physical Exam - Vital signs Vitals: Temp Pulse Resp BP Pulse Ox 98.7 F 96 18 148/98 H 100 04/05/18 14:11 04/05/18 14:11 04/05/18 14:11 04/05/18 14:11 04/05/18 14:11 - Notes Notes: Physical Exam: General: Alert, appears well. HEENT: Normocephalic. Atraumatic. PERRL. Extraocular movements intact. Oropharynx clear. Neck: Supple. Non-tender. Coarse breath sounds bilaterally. Cardiovascular: Regular rate and rhythm. Abdominal: Normal Inspection. Non-tender. No distension. Normal Bowel Sounds. Back: Non-tender. No deformity or step off. Extremities: Moves all four extremities. Upper extremities: Normal inspection. Normal ROM. Lower extremities: Normal inspection. No edema. Normal ROM. Neurological: Normal cognition. AAOx4. Normal speech. Psychological: Crying and tearful. Skin: Warm. Dry. Normal color. (BONIFACIO KAHN) - Vital Signs Vital signs: Temp Pulse Resp BP Pulse Ox 98.7 F 96 18 148/98 H 100 04/05/18 14:11 04/05/18 14:11 04/05/18 14:11 04/05/18 14:11 04/05/18 14:11 Discharge - Discharge Clinical Impression: Panic attacks, Histrionic personality disorder, Borderline personality disorder Clinical Impression: (Ruled Out): Anxiety, Bipolar disorder Condition: Stable Disposition: HOME, SELF-CARE Additional Instructions: You are recommended to follow-up with your outpatient mental health provider, alessia, in 3-5 days for continued mental health services. AT ANY TIME, IF YOUR SYMPTOMS CHANGE SIGNIFICANTLY OR WORSEN OR YOU DEVELOP NEW SYMPTOMS, RETURN TO THE EMERGENCY DEPARTMENT IMMEDIATELY FOR RE-EVALUATION. Referrals: [facility] [Outside] - Follow up in 3-5 days Scribe Attestation: 04/05/18 15:13 I personally performed the services described in the documentation, reviewed and edited the documentation which was dictated to the scribe in my presence, and it accurately records my words and actions. (CHESTER HAJI) Scribe Documentation - Scribe Written by Scribe:: Bhavya Chester, 04/05/2018 1504 acting as scribe for :: Lucho
[2018-04-05] MEDS ORDERED: DIPHENHYDRAMINE HCL 50 MG CAPSULE PO ONE (14:25)
[2018-04-05] MEDS ORDERED: HALOPERIDOL 5 MG TABLET PO ONE (14:27)
--- NOTE | 2018-04-05 15:52 | PSYCHOLOGICAL NOTE ---
Psych Note - Psych Note Psych Note: Reason for consult:Panic attack, Suicidal ideation Contact Permission: Mabel mother, Patient is a 58-year-old female who is well-known to the emergency department for frequent visits with presentations similar to her visit today. Patient is tearful, crying in the room stating her anxiety is causing her to be unable to sleep. Patient states she is currently having a panic attack but has been taking her xanax, ativan, and seroquel as prescribed. Mobile crisis quique patient to [facility]. Mobile crisis states they checked on patient yesterday and she was "only having anxiety". Mobile crisis states that they checked on her today and patient stated she was SI. Clinician attempted to talk with patient; patient was laying across the floor. Patient was screaming and biting a towel. Patient disclosed she is having a "panic attack" and that mobile crisis brought her in. She states that she takes Seroquel and Ativan and is "doing me no good ... I was about to take 5 of them when they took them away .... I know 5 would do me in... I do not want to live this way .... I want to be with my dad." Patient is demonstrating behavioral outburst stating that she is in a panic attack. Patient is not demonstrating any behavior that traditionally manifests when in a panic attack and is more congruent with the behavioral outbursts and attempt to achieve a secondary gain. Patient has been seen on multiple occasions for similar etiology and disclosing suicidal ideation because a in the family or friend. Patient has been observed in multiple previous visits of being able to control this behavior to include increasing in volume her yelling and rolling around on the floor when not getting what she wants. Attention and concentration are poor. Insight, judgment, impulse control appear to be good and motivated by secondary gain. 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 Patient is not demonstrating any behaviors congruent with an anxiety attack rather a behavioral outburst in attempt to achieve secondary gain. Patient has been seen on multiple occasions for similar etiology and disclosing suicidal ideation because a in the family or friend. Patient has been observed in multiple previous visits of being able to control this behavior to include increasing in volume her yelling and rolling around on the floor when not getting what she wants. Patient does not meet IVC criteria per [place] GS 122C. Patient is presenting congruent to prior presentations, dating back to 2010. Patient is known to presents specifically requesting Ativan, IM or PO to manage her anxiety. Patient has resources, to include a psychiatric provider, [facility]. Patient was provided additional resources to assist her on multiple occasions, to include [facility]. Patient states that she wants to kill herself because a friend of hers however it is noted on multiple prior visits patient disclosing same story (for example [facility] visit 06/06/2017, 06/07/2017 asked etc.) . Patient has been band from [facility]. Patient has a long documented polysubstance abuse issue and presents with similar etiology in attempt to obtain injection medications. Dr. Trinidad was consulted on the care and management of this patient; attending physician is in agreement with recommendations and disposition.
[2018-04-05 17:28] VITALS: BP 168/106
== END 2018-04-05 17:28 | disposition home or self-care (01) ==
LOC: ER 13:57
DX: F41.0 Panic disorder [episodic paroxysmal anxiety] (principal); R45.851 Suicidal ideations; F60.3 Borderline personality disorder; F17.210 Nicotine dependence, cigarettes, uncomplicated; I10 Essential (primary) hypertension; Z98.51 Tubal ligation status
CPT/HCPCS: 99285; A9270 ×2

== ENCOUNTER 2018-07-09 17:25 | Emergency (ER) | payer MEDICARE, MEDICAID ==
[2018-07-09 17:45] VITALS: BP 134/114
--- NOTE | 2018-07-09 18:58 | ER Document Report ---
ED Fall - General Chief Complaint: Fall Stated Complaint: FALL Time Seen by Provider: 07/09/18 18:58 Mode of Arrival: Ambulatory Information source: Patient TRAVEL OUTSIDE OF THE [place] IN LAST 30 DAYS: No - HPI Occurred: Just prior to arrival Where: Outdoors, Public place Context: Slipped Associated symptoms: None Location of injury/pain: Ankle, Back, Head, Knee, Neck Quality of pain: Sharp Severity: Moderate Pain Level: 3 Prehospital interventions: C-collar - Related data Allergies/Adverse Reactions: Soap [From Betadine] Allergy (Intermediate, Verified 04/05/18 14:07) RASH povidone-iodine [From Betadine] Allergy (Verified 04/05/18 14:07) RASH Past Medical History - Social History Smoking Status: Unknown if Ever Smoked Family History: Reviewed & Not Pertinent - Past Medical History Cardiac Medical History: Reports: Hx Hypertension Renal/ Medical History: Denies: Hx Peritoneal Dialysis Psychiatric Medical History: Reports: Hx Anxiety, Hx Bipolar Disorder, Hx Depression Past Surgical History: Reports: Hx Orthopedic Surgery - R arm, R ankle, Hx Tonsillectomy, Hx Tubal Ligation - Immunizations Hx Diphtheria, Pertussis, Tetanus Vaccination: Yes Review of Systems - Review of Systems Constitutional: denies: Chills, Fever EENT: denies: Eye pain, Eye discharge, Blurred vision Cardiovascular: No symptoms reported Respiratory: No symptoms reported Gastrointestinal: No symptoms reported Genitourinary: No symptoms reported Musculoskeletal: Back pain, Joint pain, Neck pain. denies: Deformity Skin: No symptoms reported Hematologic/Lymphatic: No symptoms reported Neurological/Psychological: No symptoms reported -: Yes All other systems reviewed and negative Physical Exam - Vital signs Vitals: Temp Pulse Resp BP Pulse Ox 98.9 F 91 16 134/114 H 94 07/09/18 17:43 07/09/18 17:43 07/09/18 17:43 07/09/18 17:43 07/09/18 17:43 - General General appearance: Appears well, Alert In distress: None - HEENT Head: Normocephalic, Atraumatic Eyes: Normal Pupils: PERRL - Respiratory Respiratory status: No respiratory distress Chest status: Nontender Breath sounds: Normal Chest palpation: Normal - Cardiovascular Rhythm: Regular Heart sounds: Normal auscultation Murmur: No - Abdominal Inspection: Normal Distension: No distension Bowel sounds: Normal Tenderness: Nontender Organomegaly: No organomegaly - Back Back: Normal, Tender. No: Vertebra tenderness - Extremities General upper extremity: Normal inspection, Nontender, Normal color, Normal ROM , Normal temperature General lower extremity: Normal inspection, Nontender, Normal color, Normal ROM , Normal temperature, Normal weight bearing. No: Alexandrea's sign Knee: Tender Ankle: Tender - Neurological Neuro grossly intact: Yes Cognition: Normal Orientation: AAOx4 Liz Coma Scale Eye Opening: Spontaneous Liz Coma Scale Verbal: Oriented Liz Coma Scale Motor: Obeys Commands Louann Coma Scale Total: 15 Speech: Normal Motor strength normal: LUE, RUE, LLE, RLE Sensory: Normal - Psychological Associated symptoms: Normal affect, Normal mood - Skin Skin Temperature: Warm Skin Moisture: Dry Skin Color: Normal Course - Vital Signs Vital signs: Temp Pulse Resp BP Pulse Ox 98.9 F 91 16 134/114 H 94 07/09/18 17:43 07/09/18 17:43 07/09/18 17:43 07/09/18 17:43 07/09/18 17:43 - Laboratory Result Diagrams: 07/09/18 23:20 07/09/18 20:48 Laboratory results interpreted by me: 07/09/18 07/09/18 07/09/18 19:43 20:48 23:20 RDW 15.1 H Sodium 146.5 H Chloride 114 H Carbon Dioxide 18 L AST 43 H Ur Leukocyte Esterase TRACE H - Diagnostic Test Radiology reviewed: Image reviewed, Reports reviewed - Transfer of Care Notes: 07/10/18 02:14 Fall. Sprain. Discharge - Discharge Clinical Impression: Sprain, Marijuana abuse Fall Qualifiers: Encounter type: initial encounter Qualified Code(s): W19.XXXA - Unspecified fall, initial encounter Alcohol intoxication Qualifiers: Complication of substance-induced condition: uncomplicated Qualified Code(s): F10.920 - Alcohol use, unspecified with intoxication, uncomplicated Condition: Stable Disposition: HOME, SELF-CARE Instructions: Acute Alcohol Intoxication ([facility]), Sprain ([facility]) Additional Instructions: Please stop drinking alcohol. Follow-up with her primary doctor tomorrow morning. Return to the emergency room if her condition worsens. Prescriptions: Ibuprofen [Motrin 600 Mg Tablet] 600 mg PO TID PRN #15 tablet PRN Reason: pain
[2018-07-09] MEDS ORDERED: MORPHINE SULFATE 10 MG/ML INJ IV ONE (19:26)
[2018-07-09] MEDS ORDERED: ONDANSETRON HCL INJ/PF 4 MG/2 ML SDV IV ONE (19:27)
[2018-07-09 20:25] LABS: APPEARANCE,URINE CLEAR; BILIRUBIN,URINE NEGATIVE (NEGATIVE); COLOR,URINE STRAW; GLUCOSE, URINE NEGATIVE (NEGATIVE); KETONES,URINE NEGATIVE (NEGATIVE); LEUKOCYTE ESTERASE,URINE TRACE (NEGATIVE); NITRITE,URINE NEGATIVE (NEGATIVE); PROTEIN,URINE NEGATIVE (NEGATIVE); UROBILINOGEN,URINE NEGATIVE mg/dL (<2.0)
--- NOTE | 2018-07-09 20:28 | RADIOLOGY REPORT (SQ) ---
EXAM DESCRIPTION: CT CERVICAL SPINE WITHOUT COMPLETED DATE/TIME: 07/09/2018 8:19 pm REASON FOR STUDY: neck pain, s/p fall COMPARISON: None. TECHNIQUE: Axial images acquired through the cervical spine without intravenous contrast. Images re viewed with lung, soft tissue and bone windows. Reconstructed coronal and sagittal MPR images review ed. Images stored on PACS. All CT scanners at this facility use dose modulation, iterative reconstruction, and/or weight based d osing when appropriate to reduce radiation dose to as low as reasonably achievable (ALARA). [facility]: Dose Right [facility]: CareDose [facility]: Dose Right [facility]: Teradose 4D [facility]: Smart [employer] RADIATION DOSE: CT Rad equipment meets quality standard of care and radiation dose reduction techniq ues were employed. CTDIvol: 20.5 mGy. DLP: 439 mGy-cm. mGy. LIMITATIONS: None. FINDINGS: ALIGNMENT: Anatomic. MINERALIZATION: Normal. VERTEBRAL BODIES: No fractures or dislocation. DISCS: Disc spaces are narrowed from C5 to C7. Anterior and posterior osteophytes are present. FACETS, LATERAL MASSES, POSTERIOR ELEMENTS: No fractures. No dislocation. No acute findings. HARDWARE: None in the spine. VISUALIZED RIBS: No fractures. LUNG APICES AND SOFT TISSUES: There are some peripheral pulmonary blebs. OTHER: No other significant finding. IMPRESSION: Degenerative disc disease and spondylosis. Small emphysematous blebs in the lungs. TECHNICAL DOCUMENTATION: JOB ID: [id number] Quality ID # [id number]: Final reports with documentation of one or more dose reduction techniques (e.g., Au tomated exposure control, adjustment of the mA and/or kV according to patient size, use of iterative reconstruction technique) 2010 [employer]- All Rights Reserved Reading location - IP/workstation name: REAL
--- NOTE | 2018-07-09 20:30 | RADIOLOGY REPORT (SQ) ---
EXAM DESCRIPTION: CT HEAD WITHOUT COMPLETED DATE/TIME: 07/09/2018 8:19 pm REASON FOR STUDY: head injury COMPARISON: 04/06/2015 TECHNIQUE: Axial images acquired through the brain without intravenous contrast. Images reviewed wi th bone, brain and subdural windows. Additional sagittal and coronal reconstructions were generated. Images stored on PACS. All CT scanners at this facility use dose modulation, iterative reconstruction, and/or weight based d osing when appropriate to reduce radiation dose to as low as reasonably achievable (ALARA). [facility]: Dose Right [facility]: CareDose [facility]: Dose Right [facility]: Teradose 4D [facility]: Smart [employer] RADIATION DOSE: CT Rad equipment meets quality standard of care and radiation dose reduction techniq ues were employed. CTDIvol: 55.2 mGy. DLP: 974 mGy-cm. mGy. LIMITATIONS: None. FINDINGS: VENTRICLES: Normal size and contour. CEREBRUM: No masses. No hemorrhage. No midline shift. No evidence for acute infarction. Normal gra y/white matter differentiation. No areas of low density in the white matter. CEREBELLUM: No masses. No hemorrhage. No alteration of density. No evidence for acute infarction. EXTRAAXIAL SPACES: No fluid collections. No masses. ORBITS AND GLOBE: No intra- or extraconal masses. Normal contour of globe without masses. CALVARIUM: No fracture. PARANASAL SINUSES: No fluid or mucosal thickening. SOFT TISSUES: No mass or hematoma. OTHER: No other significant finding. IMPRESSION: NORMAL BRAIN CT WITHOUT CONTRAST. EVIDENCE OF ACUTE STROKE: NO. COMMENT: Quality ID # 436: Final reports with documentation of one or more dose reduction techniques (e.g., Automated exposure control, adjustment of the mA and/or kV according to patient size, use of iterative reconstruction technique) TECHNICAL DOCUMENTATION: JOB ID: [id number] [employer]- All Rights Reserved Reading location - IP/workstation name: REAL
[2018-07-09 20:46] LABS: URINE AMPHETAMINES SCREEN NEGATIVE; URINE BARBITURATES SCREEN NEGATIVE; URINE COCAINE SCREEN NEGATIVE; URINE MARIJUANA (THC) SCREEN UNCONFIRMED POSITIVE; URINE METHADONE SCREEN NEGATIVE; URINE PHENCYCLIDINE SCREEN NEGATIVE
--- NOTE | 2018-07-09 20:49 | RADIOLOGY REPORT (SQ) ---
EXAM DESCRIPTION: ANKLE RIGHT COMPLETE COMPLETED DATE/TIME: 07/09/2018 8:35 pm REASON FOR STUDY: pain COMPARISON: None. NUMBER OF VIEWS: Three views. TECHNIQUE: AP, lateral, and oblique radiographic images acquired of the right ankle. LIMITATIONS: None. FINDINGS: MINERALIZATION: Normal. BONES: No acute fracture or dislocation. No worrisome bone lesions. JOINTS: No effusions. SOFT TISSUES: Mild soft tissue swelling. OTHER: There is a screw of the distal fibula. A compression plate is been removed at some time from the distal fibula. IMPRESSION: NEGATIVE STUDY OF THE RIGHT ANKLE. NO RADIOGRAPHIC EVIDENCE OF ACUTE INJURY. TECHNICAL DOCUMENTATION: JOB ID: [id number] [employer]- All Rights Reserved Reading location - IP/workstation name: REAL
--- NOTE | 2018-07-09 20:51 | RADIOLOGY REPORT (SQ) ---
EXAM DESCRIPTION: CHEST 2 VIEWS COMPLETED DATE/TIME: 07/09/2018 8:35 pm REASON FOR STUDY: s/p fall COMPARISON: 01/17/2013 EXAM PARAMETERS: NUMBER OF VIEWS: two views TECHNIQUE: Digital Frontal and Lateral radiographic views of the chest acquired. RADIATION DOSE: NA LIMITATIONS: none FINDINGS: LUNGS AND PLEURA: Mild interstitial changes. Cannot exclude mild superimposed pulmonary e marvin. MEDIASTINUM AND HILAR STRUCTURES: No masses or contour abnormalities. HEART AND VASCULAR STRUCTURES: Heart normal size. No evidence for failure. BONES: No acute findings. HARDWARE: None in the chest. OTHER: No other significant finding. IMPRESSION: Chronic interstitial changes. Cannot exclude mild superimposed pulmonary edema. Normal heart size. TECHNICAL DOCUMENTATION: JOB ID: [id number] [employer]- All Rights Reserved Reading location - IP/workstation name: REAL
--- NOTE | 2018-07-09 20:52 | RADIOLOGY REPORT (SQ) ---
EXAM DESCRIPTION: L SPINE WHOLE COMPLETED DATE/TIME: 07/09/2018 8:35 pm REASON FOR STUDY: pain, s/p fall. COMPARISON: None. NUMBER OF VIEWS: Five views including obliques. TECHNIQUE: AP, lateral, oblique, and sacral radiographic images acquired of the lumbar spine. LIMITATIONS: None. FINDINGS: MINERALIZATION: Normal. SEGMENTATION: Normal. No transitional anatomy. ALIGNMENT: Normal. VERTEBRAE: Maintained height. No fracture or worrisome bone lesion. DISCS: L5-S1 disc space is narrowed. POSTERIOR ELEMENTS: Mild hypertrophic facet changes from L3-S1. HARDWARE: None in the spine. PARASPINAL SOFT TISSUES: Large calcified uterine fibroid. PELVIS: Intact as visualized. No fractures or worrisome bone lesions. SI joints intact. OTHER: No other significant finding. IMPRESSION: Degenerative disc disease. Facet arthropathy. Calcified uterine fibroid. TECHNICAL DOCUMENTATION: JOB ID: [id number] [employer]- All Rights Reserved Reading location - IP/workstation name: REAL
--- NOTE | 2018-07-09 20:52 | RADIOLOGY REPORT (SQ) ---
EXAM DESCRIPTION: T SPINE AP/LAT COMPLETED DATE/TIME: 07/09/2018 8:35 pm REASON FOR STUDY: pain, s/p fall COMPARISON: None. NUMBER OF VIEWS: Two views. TECHNIQUE: AP and lateral radiographic images acquired of the thoracic spine. LIMITATIONS: None. FINDINGS: MINERALIZATION: Normal. ALIGNMENT: Normal. No scoliosis. VERTEBRAE: No fracture or bone lesion. Maintained height, normal segmentation. DISCS: No significant loss of height or significant narrowing. No large osteophytes. HARDWARE: None in the spine. MEDIASTINUM AND SOFT TISSUES: Normal heart size and aortic contour. No soft tissue abnormality. VISUALIZED LUNG POTTS: Clear. OTHER: No other significant finding. IMPRESSION: NO SIGNIFICANT RADIOGRAPHIC FINDING IN THE THORACIC SPINE. TECHNICAL DOCUMENTATION: JOB ID: [id number] [employer]- All Rights Reserved Reading location - IP/workstation name: REAL
--- NOTE | 2018-07-09 20:53 | RADIOLOGY REPORT (SQ) ---
EXAM DESCRIPTION: KNEE RIGHT 3 VIEWS COMPLETED DATE/TIME: 07/09/2018 8:35 pm REASON FOR STUDY: pain COMPARISON: None. NUMBER OF VIEWS: Three views. TECHNIQUE: AP, lateral, and sunrise patella radiographic images acquired of the right knee. LIMITATIONS: None. FINDINGS: MINERALIZATION: Normal. BONES: No acute fracture or dislocation. No worrisome bone lesions. JOINT: Small posterior patellar spurs are present. No significant joint effusion. SOFT TISSUES: No soft tissue swelling. No radio-opaque foreign body. OTHER: No other significant finding. IMPRESSION: Mild patellofemoral degenerative joint changes. No acute finding. TECHNICAL DOCUMENTATION: JOB ID: [id number] [employer]- All Rights Reserved Reading location - IP/workstation name: REAL
[2018-07-09] MEDS ORDERED: MORPHINE SULFATE 10 MG/ML INJ IM ONE (21:06)
[2018-07-09] MEDS ORDERED: ONDANSETRON 4 MG TAB.RAPDIS PO ONE (21:07)
[2018-07-09 21:30] LABS: URINE BENZODIAZEPINES SCREEN UNCONFIRMED POSITIVE
[2018-07-09 21:41] LABS: INTERNATIONAL RATION (INR) 0.91; PROTHROMBIN TIME 12.7 SEC (11.4-15.4)
[2018-07-09 21:47] LABS: ALANINE AMINOTRANSFERASE 26 U/L (9-52); ALBUMIN 4.4 g/dL (3.5-5.0); ALCOHOL 60 mg/dL (NONE DETECTED); ALKALINE PHOSPHATASE 92 U/L (38-126); ASPARTATE AMINO TRANSFERASE 43 U/L (14-36); BILIRUBIN,DIRECT 0.3 mg/dL (0.0-0.4); BILIRUBIN,TOTAL 0.4 mg/dL (0.2-1.3); BLOOD UREA NITROGEN 11 mg/dL (7-20); CALCIUM 9.6 mg/dL (8.4-10.2); GLUCOSE 102 mg/dL (75-110); POTASSIUM 4.7 mmol/L (3.6-5.0); TOTAL PROTEIN 8.2 g/dL (6.3-8.2)
[2018-07-09 22:05] LABS: ANION GAP 15 (5-19); CARBON DIOXIDE 18 mmol/L (22-30); CHLORIDE 114 mmol/L (98-107); SODIUM 146.5 mmol/L (137-145)
[2018-07-09 23:34] LABS: ABSOLUTE BASOPHILS # (AUTO) 0.1 10^3/uL (0.0-0.2); ABSOLUTE EOSINOPHILS # (AUTO) 0.2 10^3/uL (0.0-0.6); ABSOLUTE LYMPHOCYTES (AUTO) 2.8 10^3/uL (0.5-4.7); ABSOLUTE MONOCYTES (AUTO) 0.4 10^3/uL (0.1-1.4); ABSOLUTE NEUT (AUTO) 3.1 10^3/uL (1.7-8.2); PLATELET COUNT 272 10^3/uL (150-450); TOTAL CELLS COUNTED % (AUTO) 100 %; WHITE BLOOD COUNT 6.6 10^3/uL (4.0-10.5)
[2018-07-09 23:38] LABS: BASOPHILS % (AUTO) 0.8 % (0-2); EOSINOPHILS % (AUTO) 3.4 % (0-6); HEMATOCRIT 39.7 % (36.0-47.0); HEMOGLOBIN 13.5 g/dL (12.0-15.5); LYMPHOCYTES % (AUTO) 42.3 % (13-45); MEAN CORPUSCULAR HEMOGLOBIN 31.5 pg (27.0-33.4); MEAN CORPUSCULAR HGB CONC 34.1 g/dL (32.0-36.0); MEAN CORPUSCULAR VOLUME 92 fl (80-97); MONOCYTES % (AUTO) 6.6 % (3-13); RED CELL DISTRIBUTION WIDTH 15.1 % (11.5-14.0); SEGMENTED NEUTROPHILS % (AUTO) 46.9 % (42-78)
== END 2018-07-10 00:02 | disposition home or self-care (01) ==
LOC: ER 17:25
DX: T14.8XXA Other injury of unspecified body region, initial encounter (principal); M25.579 Pain in unspecified ankle and joints of unspecified foot; M25.569 Pain in unspecified knee; R51 Headache; F10.920 Alcohol use, unspecified with intoxication, uncomplicated; F12.10 Cannabis abuse, uncomplicated; M54.9 Dorsalgia, unspecified; M25.50 Pain in unspecified joint; M54.2 Cervicalgia; I10 Essential (primary) hypertension; W19.XXXA Unspecified fall, initial encounter
CPT/HCPCS: 99284; 96372; 36415; 80307 ×2; 85025; 85610; 85730; 80053; 81001; 83880; 73610; 71046; 73562; 72110; 72070; 70450; 72125; L0120; A9270; J2270; S0119

== ENCOUNTER 2018-07-12 20:41 | Emergency (ER) | payer MEDICARE, MEDICAID ==
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
== END 2018-07-13 | disposition home or self-care (01) ==
LOC: ER 20:41
DX: F32.9 Major depressive disorder, single episode, unspecified (principal); I10 Essential (primary) hypertension; Z88.3 Allergy status to other anti-infective agents
CPT/HCPCS: 99284

== ENCOUNTER → 2018-07-25 | Outpatient (CLI) | payer MEDICARE, MEDICAID ==
[2018-07-25 09:34] LABS: HEMATOCRIT 41.7 % (36.0-47.0); HEMOGLOBIN 14.3 g/dL (12.0-15.5); MEAN CORPUSCULAR HEMOGLOBIN 31.6 pg (27.0-33.4); MEAN CORPUSCULAR HGB CONC 34.2 g/dL (32.0-36.0); MEAN CORPUSCULAR VOLUME 93 fl (80-97); PLATELET COUNT 282 10^3/uL (150-450); RED BLOOD COUNT 4.51 10^6/uL (3.72-5.28); RED CELL DISTRIBUTION WIDTH 14.5 % (11.5-14.0); WHITE BLOOD COUNT 6.3 10^3/uL (4.0-10.5)
[2018-07-25 10:00] LABS: ALANINE AMINOTRANSFERASE 23 U/L (9-52); ALBUMIN 4.5 g/dL (3.5-5.0); ALKALINE PHOSPHATASE 98 U/L (38-126); ANION GAP 11 (5-19); ASPARTATE AMINO TRANSFERASE 25 U/L (14-36); BILIRUBIN,DIRECT 0.3 mg/dL (0.0-0.4); BILIRUBIN,TOTAL 0.4 mg/dL (0.2-1.3); BLOOD UREA NITROGEN 14 mg/dL (7-20); CALCIUM 9.7 mg/dL (8.4-10.2); CARBON DIOXIDE 27 mmol/L (22-30); CHLORIDE 105 mmol/L (98-107); GLUCOSE 112 mg/dL (75-110); POTASSIUM 3.4 mmol/L (3.6-5.0); SODIUM 142.6 mmol/L (137-145); TOTAL PROTEIN 8.5 g/dL (6.3-8.2)
== END ==
LOC: LAB 09:05
PROVIDERS: ATTEND Nurse Practitioner Family
DX: I10 Essential (primary) hypertension (principal); Z79.899 Other long term (current) drug therapy
CPT/HCPCS: 36415; 80053; 85027

== ENCOUNTER → 2018-12-09 | Outpatient (CLI) | payer MEDICARE, OTHER ==
[2018-12-09 11:16] LABS: ABSOLUTE BASOPHILS # (AUTO) 0.1 10^3/uL (0.0-0.2); ABSOLUTE EOSINOPHILS # (AUTO) 0.1 10^3/uL (0.0-0.6); ABSOLUTE LYMPHOCYTES (AUTO) 2.6 10^3/uL (0.5-4.7); ABSOLUTE MONOCYTES (AUTO) 0.4 10^3/uL (0.1-1.4); ABSOLUTE NEUT (AUTO) 2.4 10^3/uL (1.7-8.2); EOSINOPHILS % (AUTO) 1.3 % (0-6); HEMATOCRIT 42.9 % (36.0-47.0); HEMOGLOBIN 14.7 g/dL (12.0-15.5); LYMPHOCYTES % (AUTO) 47.4 % (13-45); MEAN CORPUSCULAR HEMOGLOBIN 31.8 pg (27.0-33.4); MEAN CORPUSCULAR HGB CONC 34.2 g/dL (32.0-36.0); MEAN CORPUSCULAR VOLUME 93 fl (80-97); MONOCYTES % (AUTO) 6.5 % (3-13); PLATELET COUNT 241 10^3/uL (150-450); RED BLOOD COUNT 4.61 10^6/uL (3.72-5.28); RED CELL DISTRIBUTION WIDTH 14.4 % (11.5-14.0); SEGMENTED NEUTROPHILS % (AUTO) 43.8 % (42-78); TOTAL CELLS COUNTED % (AUTO) 100 %; WHITE BLOOD COUNT 5.5 10^3/uL (4.0-10.5)
[2018-12-09 11:34] LABS: ALANINE AMINOTRANSFERASE 33 U/L (9-52); ALBUMIN 4.7 g/dL (3.5-5.0); ALKALINE PHOSPHATASE 98 U/L (38-126); ANION GAP 11 (5-19); ASPARTATE AMINO TRANSFERASE 35 U/L (14-36); BILIRUBIN,DIRECT 0.2 mg/dL (0.0-0.4); BILIRUBIN,TOTAL 0.4 mg/dL (0.2-1.3); BLOOD UREA NITROGEN 10 mg/dL (7-20); CALCIUM 9.8 mg/dL (8.4-10.2); CARBON DIOXIDE 22 mmol/L (22-30); CHLORIDE 108 mmol/L (98-107); CHOLESTEROL 205.82 mg/dL (0-200); GLUCOSE 120 mg/dL (75-110); POTASSIUM 4.1 mmol/L (3.6-5.0); SODIUM 140.8 mmol/L (137-145); TOTAL PROTEIN 7.9 g/dL (6.3-8.2); TRIGLYCERIDES 121 mg/dL (<150)
[2018-12-09 11:45] LABS: DIRECT LDL 86 mg/dL (<100)
[2018-12-09 11:50] LABS: ALANINE AMINOTRANSFERASE 33 U/L (9-52); ALBUMIN 4.7 g/dL (3.5-5.0); ALKALINE PHOSPHATASE 98 U/L (38-126); ANION GAP 11 (5-19); ASPARTATE AMINO TRANSFERASE 35 U/L (14-36); BILIRUBIN,DIRECT 0.2 mg/dL (0.0-0.4); BILIRUBIN,TOTAL 0.4 mg/dL (0.2-1.3); BLOOD UREA NITROGEN 10 mg/dL (7-20); CALCIUM 9.8 mg/dL (8.4-10.2); CARBON DIOXIDE 22 mmol/L (22-30); CHLORIDE 108 mmol/L (98-107); CHOLESTEROL 205.82 mg/dL (0-200); DIRECT LDL 86 mg/dL (<100); GLUCOSE 120 mg/dL (75-110); HEMATOCRIT 42.9 % (36.0-47.0); HEMOGLOBIN 14.7 g/dL (12.0-15.5); MEAN CORPUSCULAR HEMOGLOBIN 31.8 pg (27.0-33.4); MEAN CORPUSCULAR HGB CONC 34.2 g/dL (32.0-36.0); MEAN CORPUSCULAR VOLUME 93 fl (80-97); PLATELET COUNT 241 10^3/uL (150-450); POTASSIUM 4.1 mmol/L (3.6-5.0); RED BLOOD COUNT 4.61 10^6/uL (3.72-5.28); RED CELL DISTRIBUTION WIDTH 14.4 % (11.5-14.0); SODIUM 140.8 mmol/L (137-145); TOTAL PROTEIN 7.9 g/dL (6.3-8.2); TRIGLYCERIDES 121 mg/dL (<150); WHITE BLOOD COUNT 5.5 10^3/uL (4.0-10.5)
== END ==
LOC: LAB 10:33
PROVIDERS: ATTEND Nurse Practitioner
DX: I10 Essential (primary) hypertension (principal); F31.2 Bipolar disorder, current episode manic severe with psychotic features; Z79.899 Other long term (current) drug therapy
CPT/HCPCS: 36415; 80053; 80061; 83036; 84146; 84443; 85025; 85027

== ENCOUNTER 2019-05-06 17:39 | Emergency (ER) | payer MEDICARE, OTHER ==
--- NOTE | 2019-05-06 18:55 | ER Document Report ---
Addendum entered and electronically signed by PAT GRIFFIN DO 05/07/19 07:57: Discharge - Discharge Clinical Impression: Panic attack, Anxiety Condition: Good Disposition: HOME, SELF-CARE Additional Instructions: You have been evaluated both medical and behavioral health teams and been deemed appropriate for discharge you are highly encouraged to use your positive coping skills so you do not need to rely in emergency services. Please follow-up with your outpatient mental health provider in 3 to 5 days for continued outpatient mental health services. Panic Attack The cause of panic attacks is unknown. Symptoms can include chest pain, shortness of breath, palpitations, sweats, and a sense of smothering or impe nding doom. In time, the panic attacks can lead to generalized anxiety and phobias. Because the symptoms can mimic heart attack, pulmonary embolism, and other serious diseases, the physician has evaluated you for these conditions. There is no evidence of a serious problem. An acute panic attack usually goes away by itself without treatment. A severe attack can be treated with medicine to calm you. Long-term, antidepressant medicines may help prevent attacks. Counselling can also be very beneficial in dealing with panic attacks. Panic attacks are less likely if you are getting regular exercise, proper diet, and plenty of sleep. It's normal for panic attacks to cause many frightening symptoms. However, you should call or return if your symptoms change significantly or if you are worsening. Referrals: [facility] [Outside] - Follow up as needed FLORENCE CHAVEZ FNP-C [Primary Care Provider] - Follow up as needed Addendum entered and electronically signed by ANIL CRUZ LCSWA 05/07/19 07:22: Discharge - Discharge Clinical Impression: Panic attack, Anxiety Condition: Good Disposition: HOME, SELF-CARE Additional Instructions: You have been evaluated both medical and behavioral health teams and been deemed appropriate for discharge you are highly encouraged to use your positive coping skills so you do not need to rely in emergency services. Please follow-up with your outpatient mental health provider in 3 to 5 days for continued outpatient mental health services. Panic Attack The cause of panic attacks is unknown. Symptoms can include chest pain, sh ortness of breath, palpitations, sweats, and a sense of smothering or impending doom. In time, the panic attacks can lead to generalized anxiety and phobias. Because the symptoms can mimic heart attack, pulmonary embolism, and other serious diseases, the physician has evaluated you for these conditions. There is no evidence of a serious problem. An acute panic attack usually goes away by itself without treatment. A severe attack can be treated with medicine to calm you. Long-term, a ntidepressant medicines may help prevent attacks. Counselling can also be very beneficial in dealing with panic attacks. Panic attacks are less likely if you are getting regular exercise, proper diet, and plenty of sleep. It's normal for panic attacks to cause many frightening symptoms. However, you should call or return if your symptoms change significantly or if you are worsening. Referrals: FLORENCE CHAVEZ FNP-C [Primary Care Provider] - Follow up as needed [facility] [Outside] - Follow up as needed Original Note: ED Psych Disorder / Suicide - General Chief Complaint: Suicidal Ideation Stated Complaint: SI Time Seen by Provider: 05/06/19 18:55 Primary Care Provider: FLORENCE CHAVEZ FNP-C [Primary Care Provider] - Follow up as needed Notes: This is a 59-year-old female to the emergency department complaining of suicidal ideation. Patient states that she wants to take a bottle of her blood pressure medication and . Not severe anxiety. States that she does not feel safe at home. TRAVEL OUTSIDE OF THE [place] IN LAST 30 DAYS: No - HPI Patient complains to provider of: Suicidal ideation, Suicidal plan Severity: Moderate Pain Level: Denies - Related Data Allergies/Adverse Reactions: Soap [From Betadine] Allergy (Intermediate, Verified 04/05/18 14:07) RASH povidone-iodine [From Betadine] Allergy (Verified 04/05/18 14:07) RASH Past Medical History - General Information source: Patient - Social History Smoking Status: Never Smoker Frequency of alcohol use: None Drug Abuse: None Lives with: Alone Family History: Reviewed & Not Pertinent Patient has suicidal ideation: No Patient has homicidal ideation: No - Past Medical History Cardiac Medical History: Reports: Hx Hypertension Renal/ Medical History: Denies: Hx Peritoneal Dialysis Psychiatric Medical History: Reports: Hx Anxiety, Hx Bipolar Disorder, Hx Depression Past Surgical History: Reports: Hx Orthopedic Surgery - R arm, R ankle, Hx To nsillectomy, Hx Tubal Ligation - Immunizations Hx Diphtheria, Pertussis, Tetanus Vaccination: Yes Review of Systems - Review of Systems Notes: Constitutional: denies: Chills, Diaphoresis, Fever, Malaise, Weakness EENT: denies: Eye discharge, Blurred vision, Tearing, Double vision, Nose conge stion, Nose discharge, Throat swelling, Mouth pain Cardiovascular: denies: Palpitations, Heart racing, Orthopnea, Dyspnea, Chest pain Respiratory: denies: Cough, Hurts to breathe, Wheezing, Shortness of breath Gastrointestinal: denies: Abdominal pain, Diarrhea, Nausea, Vomiting, Black stools, bright red blood in stool Genitourinary: denies: Burning, Dysuria, Discharge, Frequency, Flank pain, H ematuria Musculoskeletal: denies: Joint pain, Joint swelling, Muscle pain, Muscle stiffness, back pain Hematologic/Lymphatic: denies: Anemia, Easy bleeding, Easy bruising, Blood clots Neurological/Psychological: denies: Confusion, Dementia, +Depression,- Loss of consciousness. + Anxiety and suicidal ideation Skin: No lesions, no masses, no skin breakdown, no abscesses Physical Exam - Vital signs Vitals: Temp Pulse Resp BP Pulse Ox 98.6 F 117 H 16 151/101 H 100 05/06/19 17:44 05/06/19 17:44 05/06/19 17:44 05/06/19 17:44 05/06/19 17:44 Interpretation: Normal - General General appearance: Appears well, Alert - HEENT Head: Normocephalic, Atraumatic Eyes: Normal Pupils: PERRL - Respiratory Respiratory status: No respiratory distress Chest status: Nontender Breath sounds: Normal Chest palpation: Normal - Cardiovascular Rhythm: Regular Heart sounds: Normal auscultation Murmur: No - Abdominal Inspection: Normal Distension: No distension Bowel sounds: Normal Tenderness: Nontender Organomegaly: No organomegaly - Back Back: Normal, Nontender - Extremities General upper extremity: Normal inspection, Nontender, Normal color, Normal ROM, Normal temperature General lower extremity: Normal inspection, Nontender, Normal color, Normal ROM, Normal temperature, Normal weight bearing. No: Alexandrea's sign - Neurological Neuro grossly intact: Yes Cognition: Normal Orientation: AAOx4 [place] Coma Scale Eye Opening: Spontaneous Liz Coma Scale Verbal: Oriented [place] Coma Scale Motor: Obeys Commands Liz Coma Scale Total: 15 Speech: Normal Motor strength normal: LUE, RUE, LLE, RLE Sensory: Normal - Psychological Associated symptoms: Normal affect, Normal mood - Skin Skin Temperature: Warm Skin Moisture: Dry Skin Color: Normal Course - Re-evaluation Re-evalutation: 05/06/19 23:42 Laboratory 05/06/19 05/06/19 21:15 21:15 WBC 5.2 RBC 4.53 Hgb 14.5 Hct 41.7 MCV 92 MCH 31.9 MCHC 34.7 RDW 13.9 Plt Count 279 Seg Neutrophils % 44.3 Lymphocytes % 46.2 H Monocytes % 6.6 Eosinophils % 2.2 Basophils % 0.7 Absolute Neutrophils 2.3 Absolute Lymphocytes 2.4 Absolute Monocytes 0.3 Absolute Eosinophils 0.1 Absolute Basophils 0.0 Sodium 140.6 Potassium 3.4 L Chloride 107 Carbon Dioxide 25 Anion Gap 9 BUN 10 Creatinine 0.60 Est GFR ( Amer) > 60 Est GFR (Non-Af Amer) > 60 Glucose 159 H Calcium 9.9 Total Bilirubin 0.5 Direct Bilirubin 0.2 Neonat Total Bilirubin Not Reportable Neonat Direct Bilirubin Not Reportable Neonat Indirect Bili Not Reportable AST 24 ALT 21 Alkaline Phosphatase 93 Total Protein 7.6 Albumin 4.2 Salicylates < 1.0 L Acetaminophen < 10 L Serum Alcohol < 10 At this time patient remained stable. Does not want to stay in her medical bed so asked to put the bed on the floor so the nurses have placed the mat on the floor because she wants to sleep on the floor. I guess that is okay? Her heart rate was initially little bit high but back down to normal now. Anyway will have mental health see her in the morning. 05/06/19 23:43 - Vital Signs Vital signs: Temp Pulse Resp BP Pulse Ox 97.6 F 90 17 150/88 H 98 05/07/19 00:00 05/07/19 00:00 05/07/19 00:00 05/07/19 00:00 05/07/19 00:00 - Laboratory Result Diagrams: 05/06/19 21:15 05/06/19 21:15 Laboratory results interpreted by me: 05/06/19 05/06/19 21:15 21:15 Lymphocytes % 46.2 H Potassium 3.4 L Glucose 159 H Salicylates < 1.0 L Acetaminophen < 10 L - EKG Interpretation by Me EKG shows normal: Sinus rhythm, [place], Intervals, QRS Complexes, ST-T Waves Discharge - Discharge Clinical Impression: Panic attack Condition: Good Disposition: HOME, SELF-CARE Referrals: FLORENCE CHAVEZ FNP-C [Primary Care Provider] - Follow up as needed
[2019-05-06] MEDS ORDERED: CLONAZEPAM 1 MG TABLET PO ONE (19:38)
[2019-05-06 21:36] LABS: ABSOLUTE EOSINOPHILS # (AUTO) 0.1 10^3/uL (0.0-0.6); ABSOLUTE LYMPHOCYTES (AUTO) 2.4 10^3/uL (0.5-4.7); ABSOLUTE MONOCYTES (AUTO) 0.3 10^3/uL (0.1-1.4); ABSOLUTE NEUT (AUTO) 2.3 10^3/uL (1.7-8.2); BASOPHILS % (AUTO) 0.7 % (0-2); EOSINOPHILS % (AUTO) 2.2 % (0-6); HEMATOCRIT 41.7 % (36.0-47.0); HEMOGLOBIN 14.5 g/dL (12.0-15.5); LYMPHOCYTES % (AUTO) 46.2 % (13-45); MEAN CORPUSCULAR HEMOGLOBIN 31.9 pg (27.0-33.4); MEAN CORPUSCULAR HGB CONC 34.7 g/dL (32.0-36.0); MEAN CORPUSCULAR VOLUME 92 fl (80-97); MONOCYTES % (AUTO) 6.6 % (3-13); PLATELET COUNT 279 10^3/uL (150-450); RED BLOOD COUNT 4.53 10^6/uL (3.72-5.28); RED CELL DISTRIBUTION WIDTH 13.9 % (11.5-14.0); SEGMENTED NEUTROPHILS % (AUTO) 44.3 % (42-78); TOTAL CELLS COUNTED % (AUTO) 100 %; WHITE BLOOD COUNT 5.2 10^3/uL (4.0-10.5)
[2019-05-06 21:56] LABS: ALANINE AMINOTRANSFERASE 21 U/L (9-52); ALBUMIN 4.2 g/dL (3.5-5.0); ALKALINE PHOSPHATASE 93 U/L (38-126); ANION GAP 9 (5-19); ASPARTATE AMINO TRANSFERASE 24 U/L (14-36); BILIRUBIN,DIRECT 0.2 mg/dL (0.0-0.4); BILIRUBIN,TOTAL 0.5 mg/dL (0.2-1.3); BLOOD UREA NITROGEN 10 mg/dL (7-20); CALCIUM 9.9 mg/dL (8.4-10.2); CARBON DIOXIDE 25 mmol/L (22-30); CHLORIDE 107 mmol/L (98-107); GLUCOSE 159 mg/dL (75-110); POTASSIUM 3.4 mmol/L (3.6-5.0); SODIUM 140.6 mmol/L (137-145); TOTAL PROTEIN 7.6 g/dL (6.3-8.2)
[2019-05-06 21:58] LABS: ACETAMINOPHEN < 10 ug/mL (10-30); ALCOHOL < 10 mg/dL (NONE DETECTED); SALICYLATE < 1.0 mg/dL (2.0-20.0)
[2019-05-07 04:40] VITALS: BP 150/88
[2019-05-07 05:04] LABS: URINE AMPHETAMINES SCREEN NEGATIVE; URINE BARBITURATES SCREEN NEGATIVE; URINE BENZODIAZEPINES SCREEN NEGATIVE; URINE COCAINE SCREEN NEGATIVE; URINE MARIJUANA (THC) SCREEN UNCONFIRMED POSITIVE; URINE METHADONE SCREEN NEGATIVE; URINE PHENCYCLIDINE SCREEN NEGATIVE
[2019-05-07 05:15] LABS: APPEARANCE,URINE SLIGHTLY-CLOUDY; BILIRUBIN,URINE NEGATIVE (NEGATIVE); COLOR,URINE YELLOW; GLUCOSE, URINE NEGATIVE (NEGATIVE); KETONES,URINE NEGATIVE (NEGATIVE); LEUKOCYTE ESTERASE,URINE TRACE (NEGATIVE); NITRITE,URINE NEGATIVE (NEGATIVE); PROTEIN,URINE NEGATIVE (NEGATIVE); URINE SPECIFIC GRAVITY 1.019; UROBILINOGEN,URINE NEGATIVE mg/dL (<2.0)
--- NOTE | 2019-05-07 07:29 | PSYCHOLOGICAL NOTE ---
Psych Note - Psych Note Date seen by psych provider: 05/07/19 Time seen by psych provider: 07:10 Psych Note: Reason for consult:Panic attack, Suicidal ideation Patient is a 58-year-old female who is well-known to the emergency department for frequent visits with presentations similar to her visit today. Patient is tearful, crying in the room, screaming the name of a security investigator that she is fond of or moaning loudly, rolling on the floor, biting a blanket, and a rgumentive with clinician. Mobile crisis quique patient to [facility] ED. Clinician attempted to talk with patient; patient was laying across the floor screaming for a security investigator, that is stationed in her eye sight for another patient; this patient has demonstrated this behavior previously with this security investigator. Patient was screaming and biting a blanket. Patient is demonstrating behavioral outburst stating that she is in a panic attack. Patient is not demonstrating any behavior that traditionally manifests when in a panic attack and is more congruent with the behavioral outbursts and attempt to achieve a secondary gain. Patient has been seen on multiple occasions for similar etiology and disclosing suicidal ideation because a in the family or friend. Patient has been observed in multiple previous visits of being able to control this behavior to include increasing in volume her yelling and rolling around on the floor when not getting what she wants. Attention and concentra tion are poor. Insight, judgment, impulse control appear to be good and motivated by secondary gain. 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 Patient is not demonstrating any behaviors congruent with an anxiety attack rather a behavioral outburst in attempt to achieve secondary gain. Patient has been seen on multiple occasions for similar etiology and disclosing suicidal ideation because a in the family or friend. Patient has been observed in multiple previous visits of being able to control this behavior to include increasing in volume her yelling and rolling around on the floor when not getting what she wants. Patient does not meet IVC criteria per [place] GS 122C. Patient is presenting congruent to prior presentations, dating back to 2010. Patient is known to presents specifically requesting Ativan, IM or PO to manage her anxiety. Patient has resources, to include a psychiatric provider, [facility]. Patient was provided additional resources to assist her on multiple occasions, to include Mobile Crisis. Patient stated that she wants to kill herself because a friend/family member of hers however it is noted on multiple prior visits patient disclosing same story (for example [facility] ED visit 06/06/2017, 06/07/2017 asked etc.). Patient has been band from [facility]. Patient has a long documented polysubstance abuse issue and presents with similar etiology in attempt to obtain injection medications. Dr. Trinidad was consulted on the care and management of this patient; attending physician is in agreement with recommendations and disposition.
--- NOTE | 2019-05-07 07:56 | EKG REPORT ---
SEVERITY:- ABNORMAL ECG - SINUS RHYTHM PROBABLE LEFT ATRIAL ABNORMALITY ABNRM R PROG, CONSIDER ASMI OR LEAD PLACEMENT : Confirmed by: Leticia Underwood MD 07-May-2019 07:56:07
--- NOTE | 2019-05-07 17:01 | ER Document Report ---
Entered by BONIFACIO KAHN SCRIBE 05/07/19 0806 Acting as scribe for:PAT GRIFFIN DO Doctor's Note Notes: 05/07/19 13:27 59-year-old female presenting to the emergency department today due to having a family crisis, stating that her cousin was murdered in [place] 2 days ago. Patient states "someone just knocked on his door and shot him in [facility]". Patient states that she now thinks she is ready to be discharged home because she should be "grieving with her family". PHYSICAL EXAM GENERAL: Alert, interacts well. No acute distress. HEAD: Normocephalic, atraumatic. EYES: Pupils equal, round, and reactive to light. Extraocular movements intact. ENT: Oral mucosa moist, tongue midline. NECK: Full range of motion. Supple. Trachea midline. LUNGS: Clear to auscultation bilaterally, no wheezes, rales, or rhonchi. No respiratory distress. HEART: Regular rate and rhythm. No murmurs, gallops, or rubs. ABDOMEN: Soft, non-tender. Non-distended. Bowel sounds present in all 4 quadrants. No guarding, rigidity, or rebound. EXTREMITIES: Moves all 4 extremities spontaneously. No edema, radial and dorsalis pedis pulses 2/4 bilaterally. No cyanosis. NEUROLOGICAL: Alert and oriented x3. Normal speech. PSYCH: Normal affect, normal mood. SKIN: Warm, dry, normal turgor. No rashes or lesions noted. 05/07/19 17:00 Discussed with behavioral health team, IVC is rescinded, agree with discharge to home. Mobile crisis/[facility] will pick her up and transport her home. I personally performed the services described in the documentation, reviewed and edited the documentation which was dictated to the scribe in my presence, and it accurately records my words and actions.
== END 2019-05-07 08:34 | disposition home or self-care (01) ==
LOC: ER 17:39
DX: F41.0 Panic disorder [episodic paroxysmal anxiety] (principal); R45.851 Suicidal ideations
CPT/HCPCS: 93005; 99285; 36415; 80307 ×4; 85025; 80053; 81001; 93010; A9270

== ENCOUNTER 2019-05-07 17:26 | Emergency (ER) | payer MEDICARE, MEDICAID ==
--- NOTE | 2019-05-07 19:43 | ER Document Report ---
ED Psych Disorder / Suicide - General Chief Complaint: Psych Problem Stated Complaint: PSYCH EVAL Time Seen by Provider: 05/07/19 19:42 Primary Care Provider: FLORENCE CHAVEZ FNP-C [Primary Care Provider] - Follow up as needed Notes: This is a 59-year-old female patient seen earlier this morning and discharged and returns for the same complaints. Patient reportedly was suicidal and was acting up at her outpatient clinic. Was sent here for further evaluation. Patient was laying on the floor when I went in the room the first time but back on the bed when I went in the second time. Patient states that she may take a handful of pills when she goes home to kill herself. TRAVEL OUTSIDE OF THE [place] IN LAST 30 DAYS: No - HPI Patient complains to provider of: Suicidal ideation, Suicidal plan Onset was: Cannot confirm Quality of pain: No pain - Related Data Allergies/Adverse Reactions: Soap [From Betadine] Allergy (Intermediate, Verified 04/05/18 14:07) RASH povidone-iodine [From Betadine] Allergy (Verified 04/05/18 14:07) RASH Past Medical History - General Information source: Patient, [facility] Records - Social History Smoking Status: Never Smoker Chew tobacco use (# tins/day): No Frequency of alcohol use: Occasional Drug Abuse: None Family History: Reviewed & Not Pertinent Patient has suicidal ideation: No Patient has homicidal ideation: No - Past Medical History Cardiac Medical History: Reports: Hx Hypertension Renal/ Medical History: Denies: Hx Peritoneal Dialysis Psychiatric Medical History: Reports: Hx Anxiety, Hx Bipolar Disorder, Hx Depression Past Surgical History: Reports: Hx Orthopedic Surgery - R arm, R ankle, Hx Tonsillectomy, Hx Tubal Ligation - Immunizations Hx Diphtheria, Pertussis, Tetanus Vaccination: Yes Review of Systems - Review of Systems Notes: Unable to obtain due to patient's refusal. Patient refusing to answer any questions and only states that she is "harm to herself and I want to be admitted to the community hospital" Physical Exam - Vital signs Interpretation: Normal - Notes Notes: Patient is screaming and yelling and demanding to be admitted to [facility]. - General General appearance: Appears well, Alert - HEENT Head: Normocephalic, Atraumatic Eyes: Normal Pupils: PERRL - Respiratory Respiratory status: No respiratory distress Chest status: Nontender Breath sounds: Normal Chest palpation: Normal - Cardiovascular Rhythm: Regular Heart sounds: Normal auscultation Murmur: No - Abdominal Inspection: Normal Distension: No distension Bowel sounds: Normal Tenderness: Nontender Organomegaly: No organomegaly - Back Back: Normal, Nontender - Extremities General upper extremity: Normal inspection, Nontender, Normal color, Normal ROM, Normal temperature General lower extremity: Normal inspection, Nontender, Normal color, Normal ROM, Normal temperature, Normal weight bearing. No: Alexandrea's sign - Neurological Neuro grossly intact: Yes Cognition: Normal Orientation: AAOx4 Liz Coma Scale Eye Opening: Spontaneous [place] Coma Scale Verbal: Oriented [place] Coma Scale Motor: Obeys Commands Liz Coma Scale Total: 15 Speech: Normal Motor strength normal: LUE, RUE, LLE, RLE Sensory: Normal - Psychological Associated symptoms: Aggressive, Agitated, Angry - Skin Skin Temperature: Warm Skin Moisture: Dry Skin Color: Normal Course - Re-evaluation Re-evalutation: 05/07/19 19:42 Patient was just released from the ER this patient was just ER and had a comprehensive medical evaluation and returns acting ridiculous. [facility] is quite aware of who she is. She does not meet criteria to be kept here. She is being loud and having agree outbursts. She slept peacefully on the floor last night and wants to be on the floor again tonight. Patient is requesting Klonopin. More likely this is the reason why she is here. Mental health provider that knows her well has requested no benzos and requests that we call her mother and discharge her. Based on the information given from the mental health provider I have nothing further to do at this time. Patient has had labs of the last 24 hours which are unremarkable. I am going to discharge her at this time in stable condition. 05/07/19 19:44 05/07/19 19:53 When I went to tell the patient that she was going home she began to scream and said that she was going to go home and kill herself. I do not truly believe the patient is a harm to herself at this time. I do believe that she is being manipulative for what ever reason. When patient said that she was going to kill herself and asked me what was I going to do about that. I explained to her that I take a risk with every patient that is discharged and that it is my job as a physician to take calculated risks with everything that I do and at this time I feel she is safe to be discharged. Patient wants to be admitted to an inpatient facility and I have explained to her (or at least attempted to explain to her over her screaming) that she does not meet criteria. Security has been asked to come and escort her off the premises. 05/07/19 22:40 Discharge - Discharge Clinical Impression: Benzodiazepine dependence Condition: Good Disposition: HOME, SELF-CARE Additional Instructions: You will need to handle your mental health issues as an outpatient. We are not going to provide you with benzodiazepines. You were given some clonazepam last night and mental health is decided that you are not someone that should be getting benzos such as clonazepam. I will discharge at this time in stable condition. You will have to follow-up with your outpatient mental health services as instructed. Referrals: FLORENCE CHAVEZ, DIONY-C [Primary Care Provider] - Follow up as needed
== END 2019-05-07 20:05 | disposition home or self-care (01) ==
LOC: ER 17:26
DX: F19.10 Other psychoactive substance abuse, uncomplicated (principal); R45.851 Suicidal ideations; I10 Essential (primary) hypertension
CPT/HCPCS: 99283

== ENCOUNTER 2019-05-08 14:07 | Emergency (ER) | payer MEDICARE, MEDICAID ==
--- NOTE | 2019-05-08 14:31 | ER Document Report ---
ED Medical Screen (RME) - General Chief Complaint: Psych Problem Stated Complaint: PSYCH EVAL Time Seen by Provider: 05/08/19 14:27 Primary Care Provider: [facility] [Outside] - Follow up as needed FLORENCE CHAVEZ FNP-C [Primary Care Provider] - Follow up as needed Mode of Arrival: Ambulatory Information source: Patient, [employer] Notes: She presents to the emergency department with suicidal ideations. Patient has IVC paperwork sent over from [facility] for suicidal ideations with a plan. Patient was just discharged here today. Heri from [facility] is in with patient. I have greeted and performed a rapid initial assessment of this patient. A comprehensive ED assessment and evaluation of the patient, analysis of test results and completion of the medical decision making process will be conducted by additional ED providers. Dictation of this chart was performed using voice recognition software; therefore, there may be some unintended grammatical errors. TRAVEL OUTSIDE OF THE [place] IN LAST 30 DAYS: No - Related Data Allergies/Adverse Reactions: Soap [From Betadine] Allergy (Intermediate, Verified 05/08/19 14:18) RASH povidone-iodine [From Betadine] Allergy (Verified 05/08/19 14:18) RASH Past Medical History - Social History Family history: Reviewed & Not Pertinent - Past Medical History Cardiac Medical History: Reports: Hx Hypertension Renal/ Medical History: Denies: Hx Peritoneal Dialysis Psychiatric Medical History: Reports: Hx Anxiety, Hx Bipolar Disorder, Hx Depression Past Surgical History: Reports: Hx Orthopedic Surgery - R arm, R ankle, Hx Tonsillectomy, Hx Tubal Ligation - Immunizations Hx Diphtheria, Pertussis, Tetanus Vaccination: Yes Doctor's Discharge - Discharge Clinical Impression: Panic attack, Drug-seeking behavior Condition: Stable Disposition: HOME, SELF-CARE Additional Instructions: You have been evaluated both medical and behavioral health teams and been deemed appropriate for discharge you are highly encouraged to use your positive coping skills so you do not need to rely in emergency services. Please follow-up with your outpatient mental health provider in 3 to 5 days for continued outpatient mental health services. Panic Attack The cause of panic attacks is unknown. Symptoms can include chest pain, shortness of breath, palpitations, sweats, and a sense of smothering or impending doom. In time, the panic attacks can lead to generalized anxiety and phobias. Because the symptoms can mimic heart attack, pulmonary embolism, and other serious diseases, the physician has evaluated you for these conditions. There is no evidence of a serious problem. An acute panic attack usually goes away by itself without treatment. A severe attack can be treated with medicine to calm you. Long-term, antidepressant medicines may help prevent attacks. Counselling can also be very beneficial in dealing with panic attacks. Panic attacks are less likely if you are getting regular exercise, proper diet, and plenty of sleep. It's normal for panic attacks to cause many frightening symptoms. However, you should call or return if your symptoms change significantly or if you are worsening. Referrals: [facility] [Outside] - Follow up as needed FLORENCE CHAVEZ FNP-C [Primary Care Provider] - Follow up as needed
--- NOTE | 2019-05-08 14:48 | ER Document Report ---
ED Psych Disorder / Suicide - General Mode of Arrival: Ambulatory TRAVEL OUTSIDE OF THE [place] IN LAST 30 DAYS: No - General Chief Complaint: Psych Problem Stated Complaint: PSYCH EVAL Time Seen by Provider: 05/08/19 14:27 Primary Care Provider: [facility] [Outside] - Follow up as needed FLORENCE CHAVEZ FNP-C [Primary Care Provider] - Follow up as needed Notes: Patient is here again to be seen for reportedly suicidal ideation. Patient well-known to this physician in this department for numerous visits to the emergency department, 2 of which occurred just yesterday. Patient was sent here with IVC papers from [facility]. Patient is a frequent visitor here and does not appear to be in is much distress as she usually is. She is usually very tearful and yelling loudly and repetitively. No other specific complaints. (BETTY CORTES) - Related Data Allergies/Adverse Reactions: Soap [From Betadine] Allergy (Intermediate, Verified 05/08/19 14:18) RASH povidone-iodine [From Betadine] Allergy (Verified 05/08/19 14:18) RASH Past Medical History - General Information source: Patient, [employer] - Social History Smoking Status: Unknown if Ever Smoked Chew tobacco use (# tins/day): No Frequency of alcohol use: None Drug Abuse: None Family History: Reviewed & Not Pertinent Patient has suicidal ideation: No Patient has homicidal ideation: No - Past Medical History Cardiac Medical History: Reports: Hx Hypertension Psychiatric Medical History: Reports: Hx Anxiety, Hx Bipolar Disorder, Hx Depression Past Surgical History: Reports: Hx Orthopedic Surgery - R arm, R ankle, Hx Tonsillectomy, Hx Tubal Ligation - Immunizations Hx Diphtheria, Pertussis, Tetanus Vaccination: Yes Review of Systems - Review of Systems Notes: CONSTITUTIONAL : Denies fever. CARDIOVASCULAR: Denies chest pain. RESPIRATORY: Denies cough, chest congestion, or shortness of breath. GASTROINTESTINAL: Denies abdominal pain or nausea, vomiting, or diarrhea. GENITOURINARY: Denies difficulty or painful urinating, urinary frequency, blood in urine. (BETTY CORTES) Physical Exam - Notes Notes: PHYSICAL EXAMINATION: GENERAL: Well-appearing, cheerful and repeats saying the same things over and over. Patient is ambulatory without difficulty. HEAD: Atraumatic, normocephalic. NECK: Normal range of motion, supple. LUNGS: Breath sounds clear and equal bilaterally. HEART: Regular rate and rhythm without murmurs heard. ABDOMEN: Soft, nontender. No guarding or rebound or masses felt. (BETTY CORTES) Course - Re-evaluation Re-evalutation: 05/08/19 19:17 Patient was seen and evaluated by mental health and they feel that she can be discharged for outpatient follow-up. 05/08/19 19:18 In my opinion, no medical emergency condition exists. (BETTY CORTES) Discharge - Discharge Clinical Impression: Panic attack, Drug-seeking behavior Condition: Stable Disposition: HOME, SELF-CARE Additional Instructions: You have been evaluated both medical and behavioral health teams and been deemed appropriate for discharge you are highly encouraged to use your positive coping skills so you do not need to rely in emergency services. Please follow-up with your outpatient mental health provider in 3 to 5 days for continued outpatient mental health services. Panic Attack The cause of panic attacks is unknown. Symptoms can include chest pain, shortness of breath, palpitations, sweats, and a sense of smothering or impending doom. In time, the panic attacks can lead to generalized anxiety and phobias. Because the symptoms can mimic heart attack, pulmonary embolism, and other serious diseases, the physician has evaluated you for these conditions. There is no evidence of a serious problem. An acute panic attack usually goes away by itself without treatment. A severe attack can be treated with medicine to calm you. Long-term, antidepressant medicines may help prevent attacks. Counselling can also be very beneficial in dealing with panic attacks. Panic attacks are less likely if you are getting regular exercise, proper diet, and plenty of sleep. It's normal for panic attacks to cause many frightening symptoms. However, you should call or return if your symptoms change significantly or if you are worsening. Referrals: FLORENCE CHAVEZ FNP-C [Primary Care Provider] - Follow up as needed [facility] [Outside] - Follow up as needed
--- NOTE | 2019-05-08 14:53 | PSYCHOLOGICAL NOTE ---
Psych Note - Psych Note Date seen by psych provider: 05/08/19 Time seen by psych provider: 14:97 - [id number] Psych Note: Reason for consult:Panic attack, Suicidal ideation Patient is a 58-year-old female who is well-known to the emergency department for frequent visits with presentations similar to her visit today (to include 2 visits just yesterday). Patient is tearful, crying in the room. Patient is demonstrating behavioral outburst stating that she is in a panic attack. Patient is not demonstrating any behavior that traditionally manifests when in a panic attack and is more congruent with the behavioral outbursts and attempt to achieve a secondary gain. Patient has been seen on multiple occasions for similar etiology and disclosing suicidal ideation because a in the family or friend. Patient has been observed in multiple previous visits of being able to control this behavior to include increasing in volume her yelling and rolling around on the floor when not getting what she wants. Attention and concentration are poor. Insight, judgment, impulse control appear to be good and motivated by secondary gain. 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 Patient is not demonstrating any behaviors congruent with an anxiety attack rather a behavioral outburst in attempt to achieve secondary gain. Patient has been seen on multiple occasions ( to include 2 times yesterday) for similar etiology and disclosing suicidal ideation because a in the family or friend. Patient has been observed in multiple previous visits of being able to control this behavior to include increasing in volume her yelling and rolling around on the floor when not getting what she wants. Patient does not meet IVC criteria per [place] GS 122C. Patient is presenting congruent to prior presentations, dating back to 2010. Patient is known to presents specifically requesting Ativan, IM or PO to manage her anxiety. Patient has resources, to include a psychiatric provider, [facility]. Patient was provided additional resources to assist her on multiple occasions, to include [facility]. Patient stated that she wants to kill herself because a friend/family member of hers however it is noted on multiple prior visits patient disclosing same story (for example [facility] ED visit 06/06/2017, 06/07/2017 asked etc.). Patient has been band from [facility]. Patient has a long documented polysubstance abuse issue and presents with similar etiology in attempt to obtain injection medications. Dr. Trinidad was consulted on the care and management of this patient; attending physician is in agreement with recommendations and disposition.
== END 2019-05-08 15:30 | disposition home or self-care (01) ==
LOC: ER 14:07
DX: R45.851 Suicidal ideations (principal); F41.0 Panic disorder [episodic paroxysmal anxiety]; Z76.5 Malingerer [conscious simulation]; I10 Essential (primary) hypertension
CPT/HCPCS: 99284

== ENCOUNTER 2019-07-07 17:12 | Emergency (ER) | payer MEDICARE, OTHER ==
[2019-07-07] MEDS ORDERED: HYDROCODONE/ACETAMINOPHEN 5-325 MG TABLET PO ONE (19:28)
[2019-07-07] MEDS ORDERED: KETOROLAC TROMETHAMINE INJ/PF 30 MG/1 ML SDV IM ONE (19:28)
--- NOTE | 2019-07-07 19:33 | ER Document Report ---
HPI - HPI Time Seen by Provider: 07/07/19 19:11 Pain Level: 2 Context: Patient is a 59-year-old female with a history of bipolar and anxiety presents to the emergency department after a fall. Patient states around 4 PM she had just stepped out of the shower when she was leaning on her sink to dry off when the sink became detached from the wall causing her to lose her balance and twisting. Patient states she did fall onto her right lower back. Patient states that is where she has is having a lot of her pain. Patient denies head injury, loss of consciousness or neck pain. Patient states she does feel like she is having a pulling and tightness in the buttocks. Patient denies loss of bowel or bladder. Patient denies numbness or tingling to lower extremities. Patient states she has not taken anything for her discomfort. - CONSTITUTIONAL Constitutional: DENIES: Fever, Chills - REPRODUCTIVE Reproductive: DENIES: : Past Medical History - General Information source: Patient - Social History Smoking Status: Unknown if Ever Smoked Lives with: Alone Family History: Reviewed & Not Pertinent Patient has suicidal ideation: No Patient has homicidal ideation: No - Past Medical History Cardiac Medical History: Reports: Hx Hypertension Pulmonary Medical History: Reports: None EENT Medical History: Reports: None Neurological Medical History: Reports: None Endocrine Medical History: Reports: None Renal/ Medical History: Reports: None. Denies: Hx Peritoneal Dialysis Malignancy Medical History: Reports: None GI Medical History: Reports: None Musculoskeletal Medical History: Reports None Skin Medical History: Reports None Psychiatric Medical History: Reports: Hx Anxiety, Hx Bipolar Disorder, Hx Depression Traumatic Medical History: Reports: None Infectious Medical History: Reports: None Past Surgical History: Reports: Hx Orthopedic Surgery - R arm, R ankle, Hx Tonsillectomy, Hx Tubal Ligation - Immunizations Hx Diphtheria, Pertussis, Tetanus Vaccination: Yes Vertical Provider Document - CONSTITUTIONAL Agree With Documented VS: Yes Exam Limitations: No Limitations General Appearance: No Apparent Distress - INFECTION CONTROL TRAVEL OUTSIDE OF THE [place] IN LAST 30 DAYS: No - HEENT HEENT: Atraumatic, Normocephalic, PERRLA - NECK Neck: Normal Inspection - RESPIRATORY Respiratory: Breath Sounds Normal, No Respiratory Distress - CARDIOVASCULAR Cardiovascular: Regular Rate, Regular Rhythm - GI/ABDOMEN Gastrointestinal: Abdomen Soft, Abdomen Non-Tender, Normal Bowel Sounds - BACK Back: Normal Inspection Notes: No lumbar midline spinal tenderness. No erythema, edema, ecchymosis. Patient is tender to the left lower back and right lower back. - NEURO Level of Consciousness: Awake, Alert, Appropriate - DERM Integumentary: Warm, No Rash Course - Re-evaluation Re-evalutation: 07/07/19 19:30 Upon initial evaluation patient is resting comfortably in chair and in no acute distress. Will give patient an IM injection of Toradol as an anti-inflammatory and prescribed the patient lidocaine patches to go home with. I did inform the patient I would give her Rapidan while she is here but I would not be prescribing narcotics. - Vital Signs Vital signs: Temp Pulse Resp BP Pulse Ox 98.1 F 92 18 140/84 H 97 07/07/19 17:33 07/07/19 17:33 07/07/19 17:33 07/07/19 17:33 07/07/19 17:33 Discharge - Discharge Clinical Impression: Fall Qualifiers: Encounter type: initial encounter Qualified Code(s): W19.XXXA - Unspecified fall, initial encounter Lumbar strain Qualifiers: Encounter type: initial encounter Qualified Code(s): S39.012A - Strain of muscle, fascia and tendon of lower back, initial encounter Condition: Stable Disposition: HOME, SELF-CARE Additional Instructions: Today you are seen in the emergency department for low back pain after a fall. At this time I do not believe that imaging is necessary and will diagnose you with a lumbar strain. This is a muscle strain to the lower back. We have given you a shot of Toradol which is an anti-inflammatory prior to discharge as well as a oral narcotic pain medication called Rapidan. I am going to prescribe the lidocaine patches to use over the next few days. You may also incorporate an NSAIDs such as Aleve, naproxen, ibuprofen for your discomfort. Initially after an injury they do say to use cool compresses. If warm compresses feel better for you please use this as you know your body. If you develop any new symptoms such as radiation of pain, numbness, tingling down the leg or weakness in the leg you should be re-evaluated. Low Back Pain Three out of every four people will have an episode of disabling back pain during their lifetime. Most commonly the pain is due to straining of the muscles and ligaments in the low back. Usual treatment includes: (1) Rest on a firm surface. Avoid lying on your stomach. (2) Ice pack the painful area. After a few days, gentle heat may be used intermittently to relax the area, or ice packs can be continued. (3) Medication may be needed -- muscle relaxers and antiinflammatory medicines are commonly used. (4) As the back improves, exercises are prescribed to strengthen the back and abdominal muscles. Your doctor will advise you on the proper care for your back at each stage in your recovery. You may be better in a few days -- or healing may take several weeks. If new symptoms of a "herniated disc" (radiation of pain, numbness, or tingling down the back of the leg or weakness in the leg) occur, you should be re-examined. Further testing may be necessary. Referrals: FLORENCE CHAVEZ FNP-C [Primary Care Provider] - Follow up as needed
[2019-07-07 20:00] VITALS: BP 158/97
== END 2019-07-07 20:00 | disposition home or self-care (01) ==
LOC: ER 17:12
DX: S39.012A Strain of muscle, fascia and tendon of lower back, initial encounter (principal); W18.39XA Other fall on same level, initial encounter; W20.8XXA Other cause of strike by thrown, projected or falling object, initial encounter; Y93.89 Activity, other specified; Y92.002 Bathroom of unspecified non-institutional (private) residence as the place of occurrence of the external cause; I10 Essential (primary) hypertension
CPT/HCPCS: J1885; A9270

== ENCOUNTER → 2019-07-28 | Outpatient (CLI) | payer MEDICARE, MEDICAID ==
[2019-07-28 11:39] LABS: APPEARANCE,URINE CLEAR; BILIRUBIN,URINE NEGATIVE (NEGATIVE); COLOR,URINE STRAW; GLUCOSE, URINE NEGATIVE (NEGATIVE); KETONES,URINE NEGATIVE (NEGATIVE); LEUKOCYTE ESTERASE,URINE NEGATIVE (NEGATIVE); NITRITE,URINE NEGATIVE (NEGATIVE); PROTEIN,URINE NEGATIVE (NEGATIVE); URINE SPECIFIC GRAVITY 1.003; UROBILINOGEN,URINE NEGATIVE mg/dL (<2.0)
[2019-07-28 11:40] LABS: HEMATOCRIT 40.7 % (36.0-47.0); HEMOGLOBIN 14.1 g/dL (12.0-15.5); MEAN CORPUSCULAR HGB CONC 34.7 g/dL (32.0-36.0); MEAN CORPUSCULAR VOLUME 92 fl (80-97); PLATELET COUNT 269 10^3/uL (150-450); RED BLOOD COUNT 4.41 10^6/uL (3.72-5.28); RED CELL DISTRIBUTION WIDTH 14.8 % (11.5-14.0); WHITE BLOOD COUNT 6.4 10^3/uL (4.0-10.5)
[2019-07-28 11:46] LABS: HEMATOCRIT 40.7 % (36.0-47.0); HEMOGLOBIN 14.1 g/dL (12.0-15.5); MEAN CORPUSCULAR HGB CONC 34.7 g/dL (32.0-36.0); MEAN CORPUSCULAR VOLUME 92 fl (80-97); PLATELET COUNT 269 10^3/uL (150-450); RED BLOOD COUNT 4.41 10^6/uL (3.72-5.28); RED CELL DISTRIBUTION WIDTH 14.8 % (11.5-14.0); WHITE BLOOD COUNT 6.4 10^3/uL (4.0-10.5)
[2019-07-28 11:58] LABS: ALBUMIN 4.5 g/dL (3.5-5.0); ALKALINE PHOSPHATASE 91 U/L (38-126); ANION GAP 14 (5-19); ASPARTATE AMINO TRANSFERASE 28 U/L (14-36); BILIRUBIN,DIRECT 0.2 mg/dL (0.0-0.4); BILIRUBIN,TOTAL 0.3 mg/dL (0.2-1.3); BLOOD UREA NITROGEN 8 mg/dL (7-20); CALCIUM 10.2 mg/dL (8.4-10.2); CARBON DIOXIDE 22 mmol/L (22-30); CHLORIDE 104 mmol/L (98-107); CREATINE KINASE 99 U/L (30-135); GLUCOSE 120 mg/dL (75-110); POTASSIUM 3.6 mmol/L (3.6-5.0); TOTAL PROTEIN 7.8 g/dL (6.3-8.2)
[2019-07-28 12:06] LABS: ALBUMIN 4.5 g/dL (3.5-5.0); ALKALINE PHOSPHATASE 91 U/L (38-126); ANION GAP 14 (5-19); ASPARTATE AMINO TRANSFERASE 28 U/L (14-36); BILIRUBIN,DIRECT 0.2 mg/dL (0.0-0.4); BILIRUBIN,TOTAL 0.3 mg/dL (0.2-1.3); BLOOD UREA NITROGEN 8 mg/dL (7-20); CALCIUM 10.2 mg/dL (8.4-10.2); CARBON DIOXIDE 22 mmol/L (22-30); CHLORIDE 104 mmol/L (98-107); GLUCOSE 120 mg/dL (75-110); POTASSIUM 3.6 mmol/L (3.6-5.0); TOTAL PROTEIN 7.8 g/dL (6.3-8.2)
[2019-07-28 13:21] LABS: CHOLESTEROL 218.02 mg/dL (0-200); TRIGLYCERIDES 154 mg/dL (<150)
[2019-07-28 13:26] LABS: URINE AMPHETAMINES SCREEN NEGATIVE; URINE BARBITURATES SCREEN NEGATIVE; URINE BENZODIAZEPINES SCREEN NEGATIVE; URINE COCAINE SCREEN NEGATIVE; URINE METHADONE SCREEN NEGATIVE; URINE PHENCYCLIDINE SCREEN NEGATIVE
[2019-07-28 13:33] LABS: DIRECT LDL 112 mg/dL (<100); VLDL CHOLESTEROL 30.8 mg/dL (10-31)
[2019-07-28 15:12] LABS: URINE MARIJUANA (THC) SCREEN UNCONFIRMED POSITIVE
[2019-07-30 06:36] LABS: HCV FIBROSURE ALT P5P 17 IU/L (0-40); HCV FIBROSURE HAPTOGLOBIN 206 mg/dL (34-200); NECROINFLAM ACTIVITY GRADE A0-No activity (.); NECROINFLAMM ACTIVITY SCORE 0.05 (0.00-0.17)
== END ==
LOC: LAB 10:30
PROVIDERS: ATTEND Nurse Practitioner Family
DX: F31.9 Bipolar disorder, unspecified (principal); B18.2 Chronic viral hepatitis C; Z79.899 Other long term (current) drug therapy
CPT/HCPCS: 36415; 80053; 80061; 80307; 81001; 81270; 82172; 82247; 82550; 82977; 83010; 83883; 84146; 84443; 84460; 85027; 87070

== ENCOUNTER → 2019-11-20 | Outpatient (CLI) | payer MEDICARE, MEDICAID ==
[2019-11-20 14:33] LABS: PROTHROMBIN TIME 12.1 SEC (11.4-15.4)
[2019-11-21 08:37] LABS: HEPATITS B SURFACE ANTIGEN Negative (Negative)
[2019-11-21 11:42] LABS: HEPATITIS C VIRUS ANTIBODY >11.0 s/co ratio (0.0-0.9)
== END ==
LOC: LAB 13:06
PROVIDERS: ATTEND Nurse Practitioner Family
DX: B18.2 Chronic viral hepatitis C (principal)
CPT/HCPCS: 36415; 80074; 85610; 87522

== ENCOUNTER → 2019-12-18 | Outpatient (CLI) | payer MEDICARE, MEDICAID ==
[2019-12-18 11:25] LABS: ALBUMIN 4.7 g/dL (3.5-5.0); ALKALINE PHOSPHATASE 105 U/L (38-126); ANION GAP 13 (5-19); ASPARTATE AMINO TRANSFERASE 34 U/L (14-36); BILIRUBIN,DIRECT 0.4 mg/dL (0.0-0.4); BILIRUBIN,TOTAL 0.5 mg/dL (0.2-1.3); BLOOD UREA NITROGEN 13 mg/dL (7-20); CALCIUM 9.7 mg/dL (8.4-10.2); CARBON DIOXIDE 22 mmol/L (22-30); CHLORIDE 107 mmol/L (98-107); GLUCOSE 95 mg/dL (75-110); POTASSIUM 4.3 mmol/L (3.6-5.0); TOTAL PROTEIN 8.8 g/dL (6.3-8.2)
== END ==
LOC: LAB 10:30
PROVIDERS: ATTEND Family Medicine
DX: B18.2 Chronic viral hepatitis C (principal)
CPT/HCPCS: 36415; 80053; 87522

== ENCOUNTER → 2020-01-29 | Outpatient (CLI) | payer MEDICARE, MEDICAID | LOC: LAB 09:21 | PROVIDERS: ATTEND Family Medicine | DX: B18.2 Chronic viral hepatitis C (principal) | CPT/HCPCS: 36415; 87522 ==